=== PATIENT | female | born 1935 | race Caucasian/White ===

== ENCOUNTER 2017-09-04 20:05 | Inpatient (IN) | payer MEDICARE, OTHER ==
[2017-09-04] MEDS ORDERED: Nitrostat 0.4 MG (ED) SL ONE ×4 (20:19→21:43)
[2017-09-04 20:28] LABS: BASOPHIL % 0.1 % (0.0-0.4); Basophil (Absolute #) 0.02 (0-0.4); Eosinophil % 1.5 % (0.00-5.0); Eosinophil (Absolute #) 0.22 (0-0.5); Granulocyte Absolute (ANC) 8.34 (1.4-6.9); Granulocytes % 58.2 % (36.0-66.0); Hematocrit 32.7 % (35-47); Lymphocyte (Absolute #) 4.81 (1.0-4.6); Lymphocytes % 33.6 % (24.0-44.0); Mean Cell Volume 87.9 fl (78-100); Mean Corpuscular Hgb Concent. 30.6 g/dl (32-36); Monocyte (Absolute #) 0.94 (0.0-1.3); Monocytes % 6.6 % (0.0-12.0); Platelet Count 362 K/mm3 (150-450); Red Blood Count 3.72 M/mm3 (4.1-5.4); Red Cell Distribution Width 15.7 % (11.5-14.0); White Blood Count 14.3 K/mm3 (4.0-10.5)
[2017-09-04] MEDS ORDERED: BABY ASPIRIN 81 MG CHEW PO ONE (20:33)
[2017-09-04] MEDS ORDERED: Zofran 4 MG/2 ML VIAL IV ONE (20:33)
[2017-09-04] MEDS ORDERED: MORPHINE SULFATE 4 MG INJ IV ONE (20:34)
[2017-09-04 20:36] LABS: Mean Corpuscular Hemoglobin 26.8 pg (26-32)
[2017-09-04] MEDS ORDERED: BABY ASPIRIN 81 MG CHEW ONE (20:37)
[2017-09-04] MEDS ORDERED: Zofran 4 MG/2 ML VIAL ONE (20:37)
--- NOTE | 2017-09-04 20:44 | ERPHSYRPT ---
- History of Present Illness Time Seen by Provider: 09/04/17 20:20 Historian: patient Exam Limitations: clinical condition Patient Subjective Stated Complaint: Chest pain, radiation to back and nausea. Triage Nursing Assessment: Pt presents to the ED with complaints of chest pain, radiation to back that began at 1915 when she was talking to her daughter. PT states there is nothing that makes pain better or worse. Pt denies SOB, skin PWD , no distress noted. Pt states she took a nitroglycerin 0.4mg SL with some relief. Physician History: PATIENT WITH A HISTORY OF CORONARY ARTERY DISEASE, STENTS X 2, HYPERTENSION, RENAL ARTERY X 2 STENTS, COMPLAINS OF LEFT POSTERIOR AND LEFT FLANK PAIN X 3-4 HOURS, HAS MINIMAL IMPOVEMENT AFTER NITROGLYCERIN X 1. DENIES DYSPNEA, DIAPHORESIS OR PALPITATIONS Timing/Duration: today Activities at Onset: none Quality: sharpness, stabbing Location: central, back (LEFT POSTERIOR CHEST PAIN) Chest Pain Radiation: abdomen Severity of Pain-Max: moderate Severity of Pain-Current: moderate Modifying Factors: Improves With: nothing Associated Symptoms: back pain Prior Chest Pain/Cardiac Workup: cardiac cath (X 2 STENTS) Nitro Today/Relief: 0.4 mg x 1 Aspirin Treatment Today: 81 mg x 2, provided at home Allergies/Adverse Reactions: butalbital [From Fiorinal] Allergy (Verified 10/20/15 17:41) caffeine [From Fiorinal] Allergy (Verified 10/20/15 17:41) Home Medications: Aspirin 162 mg PO DAILY 10/20/15 [History] Esomeprazole Magnesium [Nexium] 40 mg PO DAILY 10/20/15 [History] HydrALAzine HCL 25 MG TAB [Apresoline 25 MG TABLET] 25 mg PO BID 10/20/15 [History] Trandolapril/Verapamil HCl [Tarka ER 4-240 mg Tablet] 240 mg PO DAILY 10/20/15 [ History] Hx Tetanus, Diphtheria Vaccination/Date Given: Yes Hx Influenza Vaccination/Date Given: Yes Hx Pneumococcal Vaccination/Date Given: No Immunizations Up to Date: No - Review of Systems Constitutional: No Fever, No Chills Eyes: No Symptoms Ears, Nose, & Throat: No Symptoms Respiratory: No Symptoms, No Cough, No Dyspnea Cardiac: Chest Pain (LEFT POSTERIOR CHEST PAIN), No Edema, No Syncope Abdominal/Gastrointestinal: Abdominal Pain (LEFT SIDED ABDOMINAL PAIN), No Nausea, No Vomiting, No Diarrhea Genitourinary Symptoms: Flank Pain (LEFT FLANK PAIN), No Dysuria Musculoskeletal: No Back Pain, No Neck Pain Skin: No Rash Neurological: No Dizziness, No Focal Weakness, No Sensory Changes Psychological: No Symptoms Endocrine: No Symptoms All Other Systems: Reviewed and Negative - Past Medical History Pertinent Past Medical History: Yes Neurological History: No Pertinent History ENT History: No Pertinent History Cardiac History: Coronary Artery Disease, Hypertension, Other Respiratory History: No Pertinent History Endocrine Medical History: No Pertinent History Musculoskeletal History: Arthritis GI Medical History: GERD History: Renal Disease Psycho-Social History: No Pertinent History Female Reproductive Disorders: No Pertinent History - Past Surgical History Past Surgical History: Yes Neuro Surgical History: No Pertinent History Cardiac: No Pertinent History Respiratory: No Pertinent History Gastrointestinal: Appendectomy, Cholecystectomy Genitourinary: No Pertinent History Musculoskeletal: Joint Replacement Female Surgical History: Hysterectomy Other Surgical History: left knee replacement, 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 - Social History Smoking Status: Never smoker Exposure to second hand smoke: No Drug Use: none Patient Lives Alone: No - Female History Hx Now: No - Nursing Vital Signs Nursing Vital Signs: Initial Vital Signs Temperature 97.9 F 09/04/17 20:13 Pulse Rate 77 09/04/17 20:13 Respiratory Rate 22 09/04/17 20:13 Blood Pressure 186/111 09/04/17 20:13 O2 Sat by Pulse Oximetry 95 09/04/17 20:13 Pain Scale Pain Intensity 7 - Physical Exam General Appearance: mild distress Eye Exam: PERRL/EOMI, eyes nml inspection Ears, Nose, Throat Exam: normal ENT inspection, moist mucous membranes Neck Exam: normal inspection, non-tender, supple, full range of motion Respiratory Exam: normal breath sounds, lungs clear, No respiratory distress Cardiovascular Exam: regular rate/rhythm, normal heart sounds Gastrointestinal/Abdomen Exam: soft, normal bowel sounds, tenderness (LEFT LATERAL ABDOMINAL PAIN ANTERIOR TO LEFT CVA AREA), No mass Back Exam: normal inspection, CVA tenderness (MODERATE LEFT CVA TENDERNESS), No vertebral tenderness Extremity Exam: normal inspection, normal range of motion Neurologic Exam: alert, oriented x 3, cooperative, normal mood/affect, sensation nml, No motor deficits Skin Exam: normal color, warm, dry SpO2 Interpretation: normal SpO2: 95 Oxygen Delivery: Nasal Cannula - Course EKG Interpreted by Me: RATE, Sinus Rhythm, NORMAL AXIS, Other (LATERAL ST SEGMENT DEPRESSION V1 TO V3) - Radiology Exams Chest X-ray Interpretation: Interpreted by me, No Infiltrates (ELEVATION RIGHT HEMIDIAPHRAM) - CT Exams Abdomen/Pelvis CT Interpretation: Tele-radiologist Report (THERE ARE INFLAMMATORY CHANGES PRESENT AROUND THE SIGMOID COLON, CONSISTENT WITH SIGMOID DIVERTICULITS, NO EVIDENCE OF OBSTRUCTION, PERFORATION OR ABSCESS) Ordered Tests: Active Orders 24 hr Category Date Time Status Refueling Ramp Attendant STAT Care 09/04/17 20:19 Active EKG-ER Only STAT Care 09/04/17 20:19 Active IV Insertion STAT Care 09/04/17 20:19 Active Oxygen-ED Only NASAL CANNULA 2 lpm Care 09/04/17 20:19 Active ABDOMEN AND PELVIS W/0 CONTRAS [CT] Stat Exams 09/04/17 20:30 Completed CHEST 1 VIEW (PORTABLE) Stat Exams 09/04/17 20:19 Completed AMYLASE Stat Lab 09/04/17 20:24 Completed BLOOD CULTURE Stat Lab 09/04/17 23:25 Received CBC W DIFF Stat Lab 09/04/17 20:24 Completed CMP Stat Lab 09/04/17 20:24 Completed D-DIMER QUANTITATION Stat Lab 09/04/17 20:24 Completed LIPASE Stat Lab 09/04/17 20:24 Completed NT PRO BNP Stat Lab 09/04/17 20:24 Completed PROTIME WITH INR Stat Lab 09/04/17 20:24 Completed TROPONIN Q3H Lab 09/04/17 20:24 Completed TROPONIN Q3H Lab 09/04/17 23:25 Received TROPONIN Q3H Lab 09/05/17 02:30 Ordered TROPONIN Q3H Lab 09/05/17 05:30 Ordered TROPONIN Q3H Lab 09/05/17 08:30 Ordered UA W/RFX UR CULTURE Stat Lab 09/04/17 21:30 Completed Transfer Order Routine Transfer 09/04/17 Ordered Medication Summary Generic Name Dose Route Start Last Admin Trade Name Freq PRN Reason Stop Dose Admin Sodium Chloride 500 mls @ 50 mls/hr 09/04/17 22:30 09/04/17 22:29 Sodium Chloride 0.9% 500 Ml IV 10/04/17 22:29 50 mls/hr .Q10H [place] Administration Discontinued Medications Generic Name Dose Route Start Last Admin Trade Name Freq PRN Reason Stop Dose Admin Aspirin 162 mg 09/04/17 20:33 09/04/17 20:42 Baby Aspirin 81 Mg Chew PO 09/04/17 20:34 162 mg STAT ONE Administration Aspirin Confirm 09/04/17 20:37 Baby Aspirin 81 Mg Chew Administered 09/04/17 20:38 Dose 162 mg .ROUTE .STK-MED ONE Hydralazine HCl 10 mg 09/04/17 22:24 09/04/17 22:29 Apresoline 20 Mg/Ml Inj IV 09/04/17 22:25 10 mg STAT ONE Administration Hydralazine HCl Confirm 09/04/17 22:26 Apresoline 20 Mg/Ml Inj Administered 09/04/17 22:27 Dose 20 mg .ROUTE .STK-MED ONE Sodium Chloride Confirm 09/04/17 22:26 Sodium Chloride 0.9% 1000 Ml Administered 09/04/17 22:27 Dose 1,000 mls @ ud .ROUTE .STK-MED ONE Levofloxacin/Dextrose 500 mg in 100 mls @ 100 mls/hr 09/04/17 22:41 09/04/17 23:26 Levofloxacin 500mg/100ml D5w IV 09/04/17 23:40 100 mls/hr STAT STA Administration Levofloxacin/Dextrose Confirm 09/04/17 23:25 Levofloxacin 500mg/100ml D5w Administered 09/04/17 23:26 Dose 500 mg in 100 mls @ ud IV .STK-MED ONE Morphine Sulfate 4 mg 09/04/17 20:34 09/04/17 20:50 Morphine Sulfate 4 Mg Inj IV 09/04/17 20:35 Not Given STAT ONE Nitroglycerin 0.4 mg 09/04/17 20:19 09/04/17 20:27 Nitrostat 0.4 Mg (Ed) SL 09/04/17 20:20 0.4 mg STAT ONE Administration Nitroglycerin 0.4 mg 09/04/17 21:39 09/04/17 21:54 Nitrostat 0.4 Mg (Ed) SL 09/04/17 21:40 0.4 mg STAT ONE Administration Nitroglycerin 1 gm 09/04/17 21:39 09/04/17 21:53 Nitro-Bid 2% Ud Packets TOP 09/04/17 21:40 1 gm STAT ONE Administration Nitroglycerin Confirm 09/04/17 21:42 Nitro-Bid 2% Ud Packets Administered 09/04/17 21:43 Dose 1 gm .ROUTE .STK-MED ONE Nitroglycerin Confirm 09/04/17 21:42 Nitrostat 0.4 Mg (Ed) Administered 09/04/17 21:43 Dose 0.4 mg SL .STK-MED ONE Nitroglycerin Confirm 09/04/17 21:43 Nitrostat 0.4 Mg (Ed) Administered 09/04/17 21:44 Dose 0.4 mg SL .STK-MED ONE Ondansetron HCl 4 mg 09/04/17 20:33 09/04/17 20:41 Zofran 4 Mg/2 Ml Vial IV 09/04/17 20:34 4 mg STAT ONE Administration Ondansetron HCl Confirm 09/04/17 20:37 Zofran 4 Mg/2 Ml Vial Administered 09/04/17 20:38 Dose 4 mg .ROUTE .STK-MED ONE Lab/Rad Data: Laboratory Result Diagrams 09/04/17 20:24 09/04/17 20:24 Laboratory Results 09/04/17 09/04/17 09/04/17 Range/Units 21:30 20:24 20:24 WBC (4.0-10.5) K/mm3 RBC (4.1-5.4) M/mm3 Hgb (12.0-16.0) gm/dl Hct (35-47) % MCV (78-100) fl MCH (26-32) pg MCHC (32-36) g/dl RDW (11.5-14.0) % Plt Count (150-450) K/mm3 MPV (6-9.5) fl Gran % (36.0-66.0) % Lymphocytes % (24.0-44.0) % Monocytes % (0.0-12.0) % Eosinophils % (0.00-5.0) % Basophils % (0.0-0.4) % Basophils # (0-0.4) INR (0.8-3.0) D-Dimer (0-500) ng/mL Sodium (137-145) mmol/L Potassium (3.5-5.1) mmol/L Chloride (98-107) mEq/L Carbon Dioxide (22-30) mmol/L Anion Gap (5-15) MEQ/L BUN (7-17) mg/dl Creatinine (0.52-1.04) mg/dl Estimated GFR ML/MIN Glucose (74-106) mg/dL Calcium (8.4-10.2) mg/dL Total Bilirubin (0.2-1.3) mg/d? AST (14-36) U/L ALT (0-35) U/L Alkaline Phosphatase (38-126) U/L Troponin I 0.013 (0.000-0.034) ng/ml NT-Pro-B Natriuret Pep (0-1800) pg/ml Serum Total Protein (6.3-8.2) mg/dl Albumin (3.5-5.0) g/dl Amylase 54 (30-110) U/L Lipase 170 (23-300) U/L Ur Collection Type CCMS Urine Color LT.YELLOW (YELLOW) Urine Appearance CLEAR (CLEAR) Urine pH 7.0 (5-6) Ur Specific [place] 1.010 (1.005-1.025) Urine Protein TRACE (Negative) Urine Ketones NEGATIVE (NEGATIVE) Urine Blood NEGATIVE (0-5) Salas/ul Urine Nitrite NEGATIVE (NEGATIVE) Urine Bilirubin NEGATIVE (NEGATIVE) Urine Urobilinogen NORMAL (0-1) mg/dL Ur Leukocyte Esterase 1+ (NEGATIVE) Urine Culture Reflexed NO (NO) Urine Glucose NEGATIVE (NEGATIVE) mg/dL Specimen Received 09-04-17 [id number] 09/04/17 09/04/17 09/04/17 Range/Units 20:24 20:24 20:24 WBC 14.3 H (4.0-10.5) K/mm3 RBC 3.72 L (4.1-5.4) M/mm3 Hgb 10.0 L (12.0-16.0) gm/dl Hct 32.7 L (35-47) % MCV 87.9 (78-100) fl MCH 26.8 (26-32) pg MCHC 30.6 L (32-36) g/dl RDW 15.7 H (11.5-14.0) % Plt Count 362 (150-450) K/mm3 MPV 10.0 H (6-9.5) fl Gran % 58.2 (36.0-66.0) % Lymphocytes % 33.6 (24.0-44.0) % Monocytes % 6.6 (0.0-12.0) % Eosinophils % 1.5 (0.00-5.0) % Basophils % 0.1 (0.0-0.4) % Basophils # 0.02 (0-0.4) INR 1.11 (0.8-3.0) D-Dimer 592.85 H* (0-500) ng/mL Sodium 140 (137-145) mmol/L Potassium 3.6 (3.5-5.1) mmol/L Chloride 101 (98-107) mEq/L Carbon Dioxide 26 (22-30) mmol/L Anion Gap 17.0 H (5-15) MEQ/L BUN 23 H (7-17) mg/dl Creatinine 1.43 H (0.52-1.04) mg/dl Estimated GFR 37 ML/MIN Glucose 160 H (74-106) mg/dL Calcium 8.5 (8.4-10.2) mg/dL Total Bilirubin 0.20 (0.2-1.3) mg/d? AST 20 (14-36) U/L ALT 16 (0-35) U/L Alkaline Phosphatase 75 (38-126) U/L Troponin I (0.000-0.034) ng/ml NT-Pro-B Natriuret Pep 1340 (0-1800) pg/ml Serum Total Protein 7.1 (6.3-8.2) mg/dl Albumin 4.0 (3.5-5.0) g/dl Amylase (30-110) U/L Lipase (23-300) U/L Ur Collection Type Urine Color (YELLOW) Urine Appearance (CLEAR) Urine pH (5-6) Ur Specific [place] (1.005-1.025) Urine Protein (Negative) Urine Ketones (NEGATIVE) Urine Blood (0-5) Salas/ul Urine Nitrite (NEGATIVE) Urine Bilirubin (NEGATIVE) Urine Urobilinogen (0-1) mg/dL Ur Leukocyte Esterase (NEGATIVE) Urine Culture Reflexed (NO) Urine Glucose (NEGATIVE) mg/dL Specimen Received - Progress Progress: unchanged Progress Note: 09/04/17 23:19 ADMINISTERED BABY ASA 162MG ORALLY, TOOK 2 ASPIRIN AT HOME, FOLLOWED BY NTG 0.4MG SL X 3 DOSES, APPLICATION 1" NITROPASTE, NO CHANGE IN LEFT FLANK PAIN DISCOMFORT, FAMILY REFUSES INTRAVENOUS ANALGESICS FOR PATIENT, FAMILY REQUEST TORADOL, DISCUSSED WITH FAMILY PATIENT ELEVATED RENAL FUNCTIONS NO INDICATION. AFTER 2 SETS OF BLOOD CULTURES IV LEVAQUIN 500LMG Blood Culture(s) Obtained: Yes Antibiotics given: Yes Discussed with : Urbano (DISCUSSED [facility] [address] KWOK AT 2245 FOR ADMIT) - Departure Time of Disposition: 23:30 Departure Disposition: In-patient Admission Clinical Impression: ACUTE SIGMOID DIVERTICULITIS, ATYPICAL CHEST PAIN Condition: Stable Critical Care Time: No Referrals: MARCI KWOK MD [Primary Care Provider] -
[2017-09-04 20:45] LABS: INR 1.11 (0.8-3.0)
[2017-09-04 20:50] LABS: AMYLASE 54 U/L (30-110); LIPASE 170 U/L (23-300)
[2017-09-04 20:52] LABS: BILIRUBIN,TOTAL 0.2 mg/d? (0.2-1.3); Calcium 8.5 mg/dL (8.4-10.2); Creatinine 1 1.43 mg/dl (0.52-1.04); Potassium 3.6 mmol/L (3.5-5.1); Total Protein 7.1 mg/dl (6.3-8.2)
[2017-09-04 21:04] LABS: D-DIMER QUANTITATION 592.85 ng/mL (0-500)
[2017-09-04] MEDS ORDERED: NITRO-BID 2% UD PACKETS TOP ONE (21:39)
[2017-09-04] MEDS ORDERED: NITRO-BID 2% UD PACKETS ONE (21:42)
[2017-09-04 21:45] LABS: Appearance CLEAR (CLEAR); Bilirubin NEGATIVE (NEGATIVE); Blood NEGATIVE Ery/ul (0-5); Glucose NEGATIVE (NEGATIVE); Ketones NEGATIVE (NEGATIVE); Leukocyte Esterase 1+ (NEGATIVE); Nitrite NEGATIVE (NEGATIVE); Protein,Urine Dip TRACE (Negative); Urobilinogen NORMAL mg/dL (0-1)
[2017-09-04] MEDS ORDERED: APRESOLINE 20 MG/ML INJ IV ONE (22:24)
[2017-09-04] MEDS ORDERED: APRESOLINE 20 MG/ML INJ ONE (22:26)
[2017-09-04] MEDS ORDERED: Sodium Chloride 0.9% 1000 ML 1,000 ML ONE (22:26)
[2017-09-04] MEDS ORDERED: Sodium Chloride 0.9% 500 ML 500 ML IV SCH (22:30)
[2017-09-04] MEDS ORDERED: Levofloxacin 500MG/100ML D5W 500 MG/100 ML BAG IV STA (22:41)
[2017-09-04] MEDS ORDERED: Levofloxacin 500MG/100ML D5W 500 MG/100 ML BAG IV ONE (23:25)
--- NOTE | 2017-09-04 23:38 | XRAY ---
Indication: Left flank and chest pain. Multiple contiguous axial images obtained through the abdomen and pelvis without contrast as ordered. Comparison: None Lung bases are clear. Heart is not enlarged. Large hiatal hernia with partial intrathoracic stomach. Noncontrasted stomach and bowel loops appear nonobstructed. There is mild/moderate colonic fecal debris greatest in the right hemicolon. Scattered colonic diverticulosis greatest in the sigmoid. 4 centimeter left renal exophytic cyst. Previous cholecystectomy and hysterectomy. No free fluid/air. Remaining liver, pancreas, spleen, adrenal glands, kidneys, ureters, and bladder appear unremarkable for noncontrast exam. Mild scattered aortoiliac calcifications without AAA. Bilateral main renal artery stents. Lack of IV contrast precludes evaluation of stent patency. Osseous structures intact with moderate multilevel degenerative spondylosis and moderate levorotoscoliosis centered at the L2 level. Impression: 1. Scattered colonic diverticulosis without diverticulitis. 2. Fecal stasis without obstruction. 3. Left renal cyst. 4. Large hiatal hernia with partial intrathoracic stomach. Comment: Preliminary interpretation was made by [facility]. No discrepancy. CTDI 15.34
--- NOTE | 2017-09-04 23:40 | XRAY ---
Indication: Dyspnea. Comparison: October 22, 2015. Portable chest inflated without focal infiltrate, consolidation, or large effusion. Stable right hemidiaphragm elevation. Heart is not enlarged for AP portable technique. New CT proven large hiatal hernia. Bony thorax intact again with mild osteopenia, degenerative changes, and scoliosis. Impression: Nonacute chest with chronic features.
[2017-09-05] MEDS ORDERED: Nitrostat 0.4 MG Tablet SL PRN (00:06)
[2017-09-05] MEDS ORDERED: MAALOX ES 30 ML UNIT DOSE PO PRN (00:06)
[2017-09-05] MEDS ORDERED: Zofran 4 MG/2 ML VIAL IV PRN (00:06)
[2017-09-05] MEDS ORDERED: Sodium Chloride 0.9% 500 ML 500 ML IV SCH (00:06)
[2017-09-05] MEDS ORDERED: MILK OF MAGNESIA 30 ML PO PRN (00:06)
[2017-09-05] MEDS: FLAGYL 500 MG IVPB 500 MG/100 ML BAG IV SCH ×5 (00:52→23:38)
[2017-09-05] MEDS ORDERED: Apresoline 25 MG TABLET PO ONE (02:24)
[2017-09-05] MEDS ORDERED: Apresoline 25 MG TABLET ONE (02:29)
[2017-09-05 06:15] LABS: Risk Ratio 5.2
[2017-09-05 06:26] LABS: LDL, DIRECT 121.87 mg/dL (30-100)
[2017-09-05] MEDS ORDERED: SUBLIMAZE 100 MCG/2 ML IV PRN (08:19)
--- NOTE | 2017-09-05 08:20 | PCM.HP ---
History of Present Illness - Chief Complaint Chief Complaint: Acute Sigmoid diverticulitis/atypical chest pain History of Present Illness: is a 82 year old female who presented to the ER last night, she states she developed sudden onset of pain in her left flank/lower back region. She was going to take her dog out when it started, there was no pain in the anterior chest, no shortness of breath. She denies fever, no diarrhea or nausea/vomiting. - Review of Systems Constitutional: No Fever, No Chills Respiratory: No Cough, No Short Of Breath Cardiac: No Chest Pain, No Edema, No Syncope Abdominal/Gastrointestinal: No Abdominal Pain, No Nausea, No Vomiting, No Diarrhea, No Constipation Genitourinary Symptoms: Flank Pain, No Dysuria Skin: No Rash All Other Systems: Reviewed and Negative Medications & Allergies Home Medications: Home Medication List Aspirin 162 mg PO DAILY 10/20/15 [History Confirmed 09/04/17] Esomeprazole Magnesium [Nexium] 40 mg PO DAILY 10/20/15 [History Confirmed 09/04] HydrALAzine HCL 25 MG TAB [Apresoline 25 MG TABLET] 25 mg PO BID 10/20/15 [History Confirmed 09/04/17] Trandolapril/Verapamil HCl [Tarka ER 4-240 mg Tablet] 240 mg PO DAILY 10/20/15 [ History Confirmed 09/05/17] Nitroglycerin 0.4 mg Tablet [Nitrostat 0.4 MG Tablet] 0.4 mg SL Q5MIN PRN MR X 3 PRN #0 bottle 10/29/15 [Rx Confirmed 09/04/17] Furosemide 20 mg [Lasix 20 mg] 20 mg PO DAILY 09/05/17 [History Confirmed 09/05/17] Allergies/Adverse Reactions: Allergies Allergy/AdvReac Type Severity Reaction Status Date / Time butalbital [From Fiorinal] Allergy Verified 10/20/15 17:41 caffeine [From Fiorinal] Allergy Verified 10/20/15 17:41 - Past Medical History Past Medical History: Yes Neurological History: No Pertinent History ENT History: No Pertinent History Cardiac History: Coronary Artery Disease, Hypertension, Other Respiratory History: No Pertinent History Endocrine Medical History: No Pertinent History Musculoskelatal History: Arthritis GI Medical History: GERD History: Renal Disease Pyscho-Social History: No Pertinent History Reproductive Disorders: No Pertinent History - Female History Are you now?: No - Past Surgical History Past Surgical History: Yes Neuro Surgical History: No Pertinent History Cardiac History: No Pertinent History Respiratory Surgery: No Pertinent History GI Surgical History: Appendectomy, Cholecystectomy Genitourinary Surgical Hx: No Pertinent History Musculskeletal Surgical Hx: Joint Replacement Female Surgical History: Hysterectomy Other Surgical History: left knee replacement, 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 - Social History Smoking Status: Never smoker Exposure to second hand smoke: No Alcohol: None Drug Use: none - Physical Exam Vital Signs: Vital Signs - 24 hr Temp Pulse Resp BP Pulse Ox 09/05/17 08:00 92 L 09/05/17 07:15 98.4 F 93 H 16 142/64 92 L 09/05/17 06:00 165/82 09/05/17 04:00 92 L 09/05/17 03:28 98.6 F 89 24 185/79 93 L 09/05/17 00:52 98.4 F 85 18 213/91 92 L 09/04/17 23:43 95 09/04/17 23:33 78 14 158/88 95 09/04/17 21:59 97.9 F 80 14 177/98 98 09/04/17 21:12 72 15 190/79 97 09/04/17 20:13 97.9 F 77 22 186/111 95 Oxygen-Last 24 hours O2 Percentage 2 Liters = 28% General Appearance: no apparent distress, alert Eye Exam: PERRL/EOMI, eyes nml inspection Respiratory Exam: normal breath sounds, lungs clear, No respiratory distress Cardiovascular Exam: regular rate/rhythm, normal heart sounds, normal peripheral pulses Gastrointestinal/Abdomen Exam: soft, normal bowel sounds, tenderness (LLQ), No mass Extremity Exam: normal inspection, normal range of motion, pelvis stable Skin Exam: normal color, warm, dry, No rash Results - Labs Lab/Micro Results: Lab Results-Last 24 Hours 09/05/17 09/05/17 09/05/17 Range/Units 02:28 05:15 05:15 Troponin I 0.012 0.017 (0.000-0.034) ng/ml Triglycerides 165 H (30-150) mg/dl Cholesterol 213 H (50-200) mg/dl LDL Cholesterol 121.87 H (30-100) mg/dL HDL Cholesterol 41 (40-60) mg/dl Heart Disease Risk Ratio 5.2 - Other Procedures and Tests Respiratory Therapy 09/05/17 04:09 EKG ROUTINE 09/06/17 05:00 EKG ROUTINE 09/07/17 05:00 EKG ROUTINE 09/08/17 05:00 EKG ROUTINE Assessment/Plan (1) Acute diverticulitis Current Visit: Yes Status: Acute Assessment & Plan: ct shows sigmoid diverticulitis, continue levaquin and flagyl at this time. Code(s): K57.92 - DVTRCLI OF INTEST, PART UNSP, W/O PERF OR ABSCESS W/O BLEED
[2017-09-05] MEDS: TYLENOL 325 MG PO PRN ×4 (08:24→21:13)
[2017-09-05] MEDS: ENOXAPARIN SODIUM SQ SCH (09:49)
[2017-09-05] MEDS: ECOTRIN 81 MG PO SCH (09:49)
[2017-09-05] MEDS: Protonix 40MG Tablet PO SCH (09:49)
[2017-09-05] MEDS: LASIX 20 MG PO SCH (09:50)
[2017-09-05] MEDS ORDERED: ISOPTIN S.R. 240 MG PO SCH ×3 (10:00→22:00)
[2017-09-05] MEDS ORDERED: Apresoline 25 MG TABLET PO SCH ×3 (10:00→22:00)
[2017-09-05] MEDS ORDERED: Ecotrin 325 MG PO SCH (10:00)
[2017-09-05] MEDS ORDERED: Zestril 20 MG PO SCH (10:00)
[2017-09-05] MEDS: ISOPTIN S.R. 240 MG PO SCH (11:26)
[2017-09-05] MEDS: Zestril 20 MG PO SCH (11:26)
[2017-09-05] MEDS ORDERED: NORCO 5/325 MG PO PRN (11:35)
[2017-09-05] MEDS ORDERED: MOTRIN 400 MG PO PRN (11:55)
[2017-09-05] MEDS ORDERED: Zestril 10 MG PO SCH ×2 (12:00→22:00)
[2017-09-05] MEDS: Sodium Chloride 0.9% 1000 ML 1,000 ML IV SCH (13:47)
[2017-09-05] MEDS ORDERED: BENADRYL 25 MG CAPSULE PO PRN (20:45)
[2017-09-05] MEDS ORDERED: Levofloxacin 500MG/100ML D5W 500 MG/100 ML BAG IV SCH (22:00)
[2017-09-05] MEDS ORDERED: Levaquin 250MG/50ML D5W 250 MG/50 ML BAG IV SCH (22:00)
[2017-09-06] MEDS: Sodium Chloride 0.9% 1000 ML 1,000 ML IV SCH (05:42)
[2017-09-06] MEDS: FLAGYL 500 MG IVPB 500 MG/100 ML BAG IV SCH (05:42)
[2017-09-06 06:00] LABS: BASOPHIL % 0.3 % (0.0-0.4); Basophil (Absolute #) 0.02 (0-0.4); Eosinophil % 1.7 % (0.00-5.0); Eosinophil (Absolute #) 0.13 (0-0.5); Granulocyte Absolute (ANC) 4.79 (1.4-6.9); Granulocytes % 63.2 % (36.0-66.0); Hematocrit 29.7 % (35-47); Hemoglobin 8.9 gm/dl (12.0-16.0); Lymphocyte (Absolute #) 2.25 (1.0-4.6); Lymphocytes % 29.7 % (24.0-44.0); Mean Cell Volume 89.5 fl (78-100); Mean Corpuscular Hemoglobin 26.8 pg (26-32); Mean Platelet Volume 10.1 fl (6-9.5); Monocyte (Absolute #) 0.39 (0.0-1.3); Monocytes % 5.1 % (0.0-12.0); Platelet Count 294 K/mm3 (150-450); Red Blood Count 3.32 M/mm3 (4.1-5.4); Red Cell Distribution Width 15.8 % (11.5-14.0); White Blood Count 7.6 K/mm3 (4.0-10.5)
[2017-09-06 06:31] LABS: ANION GAP 11.9 MEQ/L (5-15); BILIRUBIN,TOTAL 0.3 mg/d? (0.2-1.3); Calcium 7.9 mg/dL (8.4-10.2); Creatinine 1 1.06 mg/dl (0.52-1.04); Potassium 3.9 mmol/L (3.5-5.1); Total Protein 5.6 mg/dl (6.3-8.2)
[2017-09-06 07:05] VITALS: BP 134/63; PULSE 79; O2SAT 92
--- NOTE | 2017-09-06 08:21 | PCM.DS ---
Discharge Summary Date of Admission: 09/05/17 00:01 Admitting Physician: MARCI KWOK Primary Care Provider: MARCI KWOK Allergies Allergies butalbital [From Fiorinal] Allergy (Verified 10/20/15 17:41) caffeine [From Fiorinal] Allergy (Verified 10/20/15 17:41) Hospital Summary - Hospital Course Hospital Course: Cassandra was admitted with severe left flank pain, ct scan suggested sigmoid diverticulitis by [facility] read, however in house read was negative. she was treated with levaquin and flagyl, pain has resolved. troponin bumped slightly but no chest pain or shortness of breath was reported and there were no EKG changes, this was attributed to demand issues during acute illness. patient has been advised to f/u with Dr Cowart - Vitals & Intake/Output Vital Signs: Vital Signs Temperature 98.7 F 09/06/17 07:04 Pulse Rate 79 09/06/17 07:04 Respiratory Rate 16 09/06/17 07:04 Blood Pressure 134/63 09/06/17 07:04 O2 Sat by Pulse Oximetry 92 L 09/06/17 07:04 Oxygen-Last Documented O2 Percentage 2 Liters = 28% Intake & Output: Intake & Output 09/03/17 09/04/17 09/05/17 09/06/17 11:59 11:59 11:59 12:59 Intake Total 635 3006 Output Total 725 1525 Balance -90 1481 Weight 70.8 kg 73.5 kg - Lab Result Diagrams: 09/06/17 05:59 09/06/17 05:59 Lab Results-Last 24 Hrs: Lab Results-Last 24 Hours 09/05/17 09/05/17 09/06/17 Range/Units 08:55 11:55 05:59 WBC 7.6 (4.0-10.5) K/mm3 RBC 3.32 L (4.1-5.4) M/mm3 Hgb 8.9 L (12.0-16.0) gm/dl Hct 29.7 L (35-47) % MCV 89.5 (78-100) fl MCH 26.8 (26-32) pg MCHC 30.0 L (32-36) g/dl RDW 15.8 H (11.5-14.0) % Plt Count 294 (150-450) K/mm3 MPV 10.1 H (6-9.5) fl Gran % 63.2 (36.0-66.0) % Lymphocytes % 29.7 (24.0-44.0) % Monocytes % 5.1 (0.0-12.0) % Eosinophils % 1.7 (0.00-5.0) % Basophils % 0.3 (0.0-0.4) % Basophils # 0.02 (0-0.4) Sodium (137-145) mmol/L Potassium (3.5-5.1) mmol/L Chloride (98-107) mEq/L Carbon Dioxide (22-30) mmol/L Anion Gap (5-15) MEQ/L BUN (7-17) mg/dl Creatinine (0.52-1.04) mg/dl Estimated GFR ML/MIN Glucose (74-106) mg/dL Calcium (8.4-10.2) mg/dL Total Bilirubin (0.2-1.3) mg/d? AST (14-36) U/L ALT (0-35) U/L Alkaline Phosphatase (38-126) U/L Troponin I 0.040 H 0.063 H (0.000-0.034) ng/ml Serum Total Protein (6.3-8.2) mg/dl Albumin (3.5-5.0) g/dl 09/06/17 09/06/17 Range/Units 05:59 05:59 WBC (4.0-10.5) K/mm3 RBC (4.1-5.4) M/mm3 Hgb (12.0-16.0) gm/dl Hct (35-47) % MCV (78-100) fl MCH (26-32) pg MCHC (32-36) g/dl RDW (11.5-14.0) % Plt Count (150-450) K/mm3 MPV (6-9.5) fl Gran % (36.0-66.0) % Lymphocytes % (24.0-44.0) % Monocytes % (0.0-12.0) % Eosinophils % (0.00-5.0) % Basophils % (0.0-0.4) % Basophils # (0-0.4) Sodium 141 (137-145) mmol/L Potassium 3.9 (3.5-5.1) mmol/L Chloride 107 (98-107) mEq/L Carbon Dioxide 26 (22-30) mmol/L Anion Gap 11.9 (5-15) MEQ/L BUN 16 (7-17) mg/dl Creatinine 1.06 H (0.52-1.04) mg/dl Estimated GFR 53 ML/MIN Glucose 93 (74-106) mg/dL Calcium 7.9 L (8.4-10.2) mg/dL Total Bilirubin 0.30 (0.2-1.3) mg/d? AST 11 L (14-36) U/L ALT 11 (0-35) U/L Alkaline Phosphatase 57 (38-126) U/L Troponin I 0.103 H (0.000-0.034) ng/ml Serum Total Protein 5.6 L (6.3-8.2) mg/dl Albumin 3.0 L (3.5-5.0) g/dl - Procedures and Test Procedures and Tests throughout Hospitalization: Therapy Orders & Screens 09/05/17 04:09 EKG ROUTINE Comment: Diagnosis: Acute Sigmoid diverticulitis/atypical chest pain 09/06/17 05:00 EKG ROUTINE Comment: Diagnosis: Acute Sigmoid diverticulitis/atypical chest pain 09/07/17 05:00 EKG ROUTINE Comment: Diagnosis: Acute Sigmoid diverticulitis/atypical chest pain 09/08/17 05:00 EKG ROUTINE Comment: Diagnosis: Acute Sigmoid diverticulitis/atypical chest pain Discharge Exam General Appearance: no apparent distress Respiratory Exam: normal breath sounds Cardiovascular Exam: regular rate/rhythm, normal heart sounds Gastrointestinal/Abdomen Exam: soft, No tenderness, No mass Extremity Exam: normal inspection, normal range of motion Back Exam: normal inspection, normal range of motion, No CVA tenderness, No vertebral tenderness Final Diagnosis/Problem List - Final Discharge Diagnosis/Problem (1) Acute diverticulitis Current Visit: Yes Status: Acute Assessment & Plan: home on po levaquin (2) Elevated troponin Current Visit: Yes Status: Acute Assessment & Plan: attributed to demand, will f/u with Dr Cowart. no immediate need for any intervention, patient has no cardiac symptoms. - Discharge Disposition: Home, Self-Care Condition: Stable Prescriptions: New Levofloxacin [Levaquin] 250 mg PO DAILY #5 tablet Continue HydrALAzine HCL 25 MG TAB [Apresoline 25 MG TABLET] 50 mg PO BID Esomeprazole Magnesium [Nexium] 40 mg PO DAILY Aspirin 162 mg PO DAILY Trandolapril/Verapamil HCl [Tarka ER 4-240 mg Tablet] 240 mg PO DAILY Nitroglycerin 0.4 mg Tablet [Nitrostat 0.4 MG Tablet] 0.4 mg SL Q5MIN PRN MR X 3 PRN #0 bottle PRN Reason: Chest Pain Furosemide 20 mg [Lasix 20 mg] 20 mg PO DAILY Follow up with: MARCI KWOK MD [Primary Care Provider] - 1 Week JOSE LUIS COWART [ACTIVE STAFF] - 1 Week
[2017-09-06] MEDS: LASIX 20 MG PO SCH (09:43)
[2017-09-06] MEDS: Protonix 40MG Tablet PO SCH (09:43)
[2017-09-06] MEDS: ECOTRIN 81 MG PO SCH (09:43)
[2017-09-06] MEDS: ISOPTIN S.R. 240 MG PO SCH (09:43)
[2017-09-06] MEDS: ENOXAPARIN SODIUM SQ SCH (09:43)
[2017-09-06] MEDS: Zestril 20 MG PO SCH (09:43)
== END 2017-09-06 10:40 | disposition home or self-care (01) | DRG 392 ==
LOC: ED 20:05 → MED SURG 09-05 00:01
PROVIDERS: ADMIT Family Medicine; ATTEND Family Medicine
DX: K57.32 Diverticulitis of large intestine without perforation or abscess without bleeding (principal); R79.89 Other specified abnormal findings of blood chemistry; I25.10 Atherosclerotic heart disease of native coronary artery without angina pectoris; R07.89 Other chest pain; Z79.899 Other long term (current) drug therapy; I10 Essential (primary) hypertension; M19.90 Unspecified osteoarthritis, unspecified site; K21.9 Gastro-esophageal reflux disease without esophagitis; N28.9 Disorder of kidney and ureter, unspecified
CPT/HCPCS: 36000; 36415; 71045; 74176; 80053; 80061; 81002; 82150; 83690; 83721; 83880; 84484; 85025; 85379; 85610; 87040; 87086; 93005; 93041; 96360; 96361; 96365; 96374; 99285; J0360; J1650; J1956; J2405; A9270-GY

== ENCOUNTER 2018-01-26 15:03 | Emergency (ER) | payer MEDICARE, OTHER ==
--- NOTE | 2018-01-26 15:54 | ERPHSYRPT ---
- History of Present Illness Time Seen by Provider: 01/26/18 15:40 Source: patient Exam Limitations: no limitations Patient Subjective Stated Complaint: patient states nause/vomiting starting today. was not feeling well yesterday. slight pain in right arm/hand with no known injury. headache today on the right side. was able to eat earlier. Triage Nursing Assessment: alert and awake. nebulous system complaints. difficult to nail down specific concern. states right side headache, right arm pain. denies CP. vomiting yesterday and today. neuro intact.. able to get undressed per self and get into bed per self. lungs clear bilat. denies abdominal pain. Physician History: 83-year-old white female arrives with complaint of general malaise, feeling as if she has heartburn, feeling of pain behind her right shoulder, headache, symptoms since last night According to the patient last evening she she ate her supper and she began to feel of discomfort in her belly she started feeling like she had heartburn last until 2 in the morning she went to sleep woke up this morning felt fine that around 10:30 she began to feel like she was seeing spots felt like she was going to pass out began to have pain in her right posterior shoulder she stated she had some nausea no abdominal pain she is not short of breath she is not coughing. She now complains just of feeling general malaise. She has not had a fever. 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 Social history patient denies tobacco alcohol or illicit drug use Timing/Duration: yesterday (began last evening) Severity: moderate Modifying Factors: Improves With: nothing Associated Symptoms: nausea, heartburn, headaches, malaise, weakness, No vomiting, No abdominal pain, No shortness of breath, No diaphoresis, No cough, No chills, No chest pain, No fever, No loss of appetite, No syncope, No seizure Allergies/Adverse Reactions: butalbital [From Fiorinal] Allergy (Verified 10/20/15 17:41) caffeine [From Fiorinal] Allergy (Verified 10/20/15 17:41) Home Medications: Aspirin 162 mg PO DAILY 10/20/15 [History] Esomeprazole Magnesium [Nexium] 40 mg PO DAILY 10/20/15 [History] HydrALAzine HCL 25 MG TAB [Apresoline 25 MG TABLET] 50 mg PO BID 10/20/15 [History] Trandolapril/Verapamil HCl [Tarka ER 4-240 mg Tablet] 240 mg PO DAILY 10/20/15 [ History] Furosemide 20 mg [Lasix 20 mg] 20 mg PO DAILY 09/05/17 [History] Hx Tetanus, Diphtheria Vaccination/Date Given: Yes Hx Influenza Vaccination/Date Given: Yes Hx Pneumococcal Vaccination/Date Given: No - Review of Systems Constitutional: Malaise, Weakness Eyes: Other (patient states she felt like she was going to pass out and felt like she was seeing spots earlier) Ears, Nose, & Throat: No Symptoms Respiratory: No Cough, No Dyspnea Cardiac: No Chest Pain, No Edema, No Syncope Abdominal/Gastrointestinal: No Symptoms Genitourinary Symptoms: No Dysuria Musculoskeletal: Other (pain right posterior shoulder), No Back Pain, No Neck Pain Skin: No Rash Neurological: No Dizziness, No Focal Weakness, No Sensory Changes Psychological: No Symptoms Endocrine: No Symptoms All Other Systems: Reviewed and Negative - Past Medical History Pertinent Past Medical History: Yes Neurological History: No Pertinent History ENT History: No Pertinent History Cardiac History: Coronary Artery Disease, Hypertension, Other Respiratory History: No Pertinent History Endocrine Medical History: No Pertinent History Musculoskeletal History: Arthritis GI Medical History: GERD History: Renal Disease Psycho-Social History: No Pertinent History Female Reproductive Disorders: No Pertinent History - Past Surgical History Past Surgical History: Yes Neuro Surgical History: No Pertinent History Cardiac: No Pertinent History Respiratory: No Pertinent History Gastrointestinal: Appendectomy, Cholecystectomy Genitourinary: No Pertinent History Musculoskeletal: Joint Replacement Female Surgical History: Hysterectomy Other Surgical History: left knee replacement, 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 - Social History Smoking Status: Never smoker Exposure to second hand smoke: No Drug Use: none Patient Lives Alone: No - Female History Hx Now: No - Nursing Vital Signs Nursing Vital Signs: Initial Vital Signs Temperature 97.3 F 01/26/18 15:19 Pulse Rate 55 L 01/26/18 15:19 Respiratory Rate 18 01/26/18 15:19 Blood Pressure 137/60 01/26/18 15:19 O2 Sat by Pulse Oximetry 97 01/26/18 15:19 Pain Scale Pain Intensity 4 - Physical Exam General Appearance: no apparent distress, alert Eye Exam: PERRL/EOMI, eyes nml inspection Ears, Nose, Throat Exam: normal ENT inspection, TMs normal, pharynx normal, moist mucous membranes Neck Exam: normal inspection, non-tender, supple, full range of motion Respiratory Exam: normal breath sounds Cardiovascular Exam: regular rate/rhythm, normal heart sounds, normal peripheral pulses Gastrointestinal/Abdomen Exam: soft, normal bowel sounds, No tenderness, No mass Back Exam: normal inspection, normal range of motion, No CVA tenderness, No vertebral tenderness Extremity Exam: normal inspection, normal range of motion, pelvis stable Neurologic Exam: alert, oriented x 3, cooperative, concrete tester II-XII nml as tested, normal mood/affect, nml cerebellar function, nml station & gait, sensation nml, No motor deficits Skin Exam: normal color, warm, dry, No rash SpO2 Interpretation: normal (97%) SpO2: 97 Oxygen Delivery: Room Air - Course Nursing assessment & vital signs reviewed: Yes EKG Interpreted by Me: RATE (54 bpm), Sinus Leonel, NORMAL AXIS, Other (EKG: Sinus bradycardia, 54 bpm, normal axis, no acute ST OR T WAVE changes) - Radiology Exams Chest X-ray Interpretation: Interpreted by me (no acute disease process noted) Ordered Tests: Active Orders 24 hr Category Date Time Status EKG-ER Only STAT Care 01/26/18 15:47 Active IV Insertion STAT Care 01/26/18 15:47 Active CHEST 1 VIEW (PORTABLE) Stat Exams 01/26/18 16:03 Completed Medication Summary Discontinued Medications Generic Name Dose Route Start Last Admin Trade Name Pardeep PRN Reason Stop Dose Admin Acetaminophen 650 mg 01/26/18 18:14 01/26/18 18:22 Tylenol 325 Mg PO 01/26/18 18:15 650 mg STAT ONE Administration Acetaminophen Confirm 01/26/18 18:22 Tylenol 325 Mg Administered 01/26/18 18:23 Dose 650 mg .ROUTE .STK-MED ONE Aspirin 162 mg 01/26/18 17:27 01/26/18 17:32 Baby Aspirin 81 Mg Chew PO 01/26/18 17:28 162 mg STAT ONE Administration Aspirin Confirm 01/26/18 20:29 Baby Aspirin 81 Mg Chew Administered 01/26/18 20:30 Dose 162 mg .ROUTE .STK-MED ONE Sodium Chloride 1,000 mls @ 100 mls/hr 01/26/18 16:00 01/26/18 16:01 Sodium Chloride 0.9% 1000 Ml IV 02/25/18 15:59 100 mls/hr .Q10H [place] Administration Sodium Chloride Confirm 01/26/18 15:59 Sodium Chloride 0.9% 1000 Ml Administered 01/26/18 16:00 Dose 1,000 mls @ ud .ROUTE .STK-MED ONE Lab/Rad Data: Laboratory Result Diagrams 01/26/18 03:55 01/26/18 03:55 Laboratory Results 01/26/18 01/26/18 01/26/18 Range/Units 03:55 03:55 03:55 WBC 11.8 H (4.0-10.5) K/mm3 RBC 3.38 L (4.1-5.4) M/mm3 Hgb 7.9 L (12.0-16.0) gm/dl Hct 26.8 L (35-47) % MCV 79.3 (78-100) fl MCH 23.3 L (26-32) pg MCHC 29.5 L (32-36) g/dl RDW 15.7 H (11.5-14.0) % Plt Count 435 (150-450) K/mm3 MPV 10.2 H (6-9.5) fl Gran % 80.9 H (36.0-66.0) % Eos # (Auto) 0.09 (0-0.5) Absolute Lymphs (auto) 1.53 (1.0-4.6) Absolute Monos (auto) 0.62 (0.0-1.3) Lymphocytes % 12.9 L (24.0-44.0) % Monocytes % 5.2 (0.0-12.0) % Eosinophils % 0.8 (0.00-5.0) % Basophils % 0.2 (0.0-0.4) % Absolute Granulocytes 9.56 H (1.4-6.9) Basophils # 0.02 (0-0.4) Sodium 140 (137-145) mmol/L Potassium 4.3 (3.5-5.1) mmol/L Chloride 104 (98-107) mmol/L Carbon Dioxide 23 (22-30) mmol/L Anion Gap 17.7 H (5-15) MEQ/L BUN 32 H (7-17) mg/dL Creatinine 1.43 H (0.52-1.04) mg/dL Estimated GFR 37.2 ML/MIN Glucose 121 H (74-106) mg/dL Calcium 9.4 (8.4-10.2) mg/dL Total Bilirubin 0.30 (0.2-1.3) mg/dL AST 14 (14-36) U/L ALT 15 (0-35) U/L Alkaline Phosphatase 70 (38-126) U/L Troponin I 0.056 H* (0.000-0.034) ng/mL Serum Total Protein 7.2 (6.3-8.2) g/dL Albumin 4.2 (3.5-5.0) g/dL Amylase 43 (30-110) U/L Lipase 91 (23-300) U/L - Progress Progress: improved Progress Note: 01/26/18 17:19 83-year-old white female arrives with complaint of general malaise pain in her right posterior shoulder, pain described as a heartburn radiating from her epigastric region to her throat symptoms since last night. Patient's EKG is remarkable for sinus bradycardia 54 beats for minute normal axis no acute ST or T wave changes are noted Patient states she took 2 baby aspirin at home this morning. Patient's troponin is elevated at 0.054 it is noted that patient did have a elevated troponin at last visit 01/26/18 17:34 patient also has anemia hemoglobin of 7.9 I have discussed the patient's case with Dr. 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 Patient is given an additional 162 mg of aspirin. 01/26/18 17:45 I contacted [facility] call and discuss case with Dr. Adamson he has excepted the patient for transfer to [facility]. - Departure Time of Disposition: 18:55 Departure Disposition: Transfer ([facility]) Clinical Impression: Elevated troponin Chest pain Qualifiers: Chest pain type: unspecified Qualified Code(s): R07.9 - Chest pain, unspecified Anemia Qualifiers: Anemia type: unspecified type Qualified Code(s): D64.9 - Anemia, unspecified Condition: Stable Critical Care Time: No Referrals: MARCI KWOK MD [Primary Care Provider] -
[2018-01-26] MEDS ORDERED: Sodium Chloride 0.9% 1000 ML 1,000 ML ONE (15:59)
[2018-01-26] MEDS ORDERED: Sodium Chloride 0.9% 1000 ML 1,000 ML IV SCH (16:00)
[2018-01-26 16:13] LABS: BASOPHIL % 0.2 % (0.0-0.4); Basophil (Absolute #) 0.02 (0-0.4); Eosinophil % 0.8 % (0.00-5.0); Eosinophil (Absolute #) 0.09 (0-0.5); Granulocyte Absolute (ANC) 9.56 (1.4-6.9); Granulocytes % 80.9 % (36.0-66.0); Hematocrit 26.8 % (35-47); Hemoglobin 7.9 gm/dl (12.0-16.0); Lymphocyte (Absolute #) 1.53 (1.0-4.6); Lymphocytes % 12.9 % (24.0-44.0); Mean Cell Volume 79.3 fl (78-100); Mean Corpuscular Hgb Concent. 29.5 g/dl (32-36); Mean Platelet Volume 10.2 fl (6-9.5); Monocyte (Absolute #) 0.62 (0.0-1.3); Monocytes % 5.2 % (0.0-12.0); Platelet Count 435 K/mm3 (150-450); Red Blood Count 3.38 M/mm3 (4.1-5.4); Red Cell Distribution Width 15.7 % (11.5-14.0); White Blood Count 11.8 K/mm3 (4.0-10.5)
[2018-01-26 16:24] LABS: ALBUMIN 4.2 g/dL (3.5-5.0); ANION GAP 17.7 MEQ/L (5-15); BILIRUBIN,TOTAL 0.3 mg/dL (0.2-1.3); Calcium 9.4 mg/dL (8.4-10.2); Creatinine 1 1.43 mg/dL (0.52-1.04); Potassium 4.3 mmol/L (3.5-5.1); Total Protein 7.2 g/dL (6.3-8.2)
[2018-01-26 16:31] LABS: Mean Corpuscular Hemoglobin 23.3 pg (26-32)
[2018-01-26] MEDS ORDERED: BABY ASPIRIN 81 MG CHEW PO ONE (17:27)
[2018-01-26] MEDS ORDERED: TYLENOL 325 MG PO ONE (18:14)
[2018-01-26] MEDS ORDERED: TYLENOL 325 MG ONE (18:22)
[2018-01-26 18:53] VITALS: BP 143/62; PULSE 74; O2SAT 97
[2018-01-26] MEDS ORDERED: BABY ASPIRIN 81 MG CHEW ONE (20:29)
--- NOTE | 2018-01-26 21:46 | XRAY ---
Indication: Weakness and right shoulder pain. Comparison: September 04, 2017. Portable chest remains clear. Heart is not enlarged. 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 Bony thorax intact again with mild osteopenia and degenerative changes. Impression: Stable nonacute chest with chronic features.
== END 2018-01-26 19:23 | disposition short-term general hospital (02) ==
LOC: ED 15:03
DX: R79.89 Other specified abnormal findings of blood chemistry (principal); R07.9 Chest pain, unspecified; D64.9 Anemia, unspecified; R11.2 Nausea with vomiting, unspecified; I25.10 Atherosclerotic heart disease of native coronary artery without angina pectoris; I10 Essential (primary) hypertension; K21.9 Gastro-esophageal reflux disease without esophagitis; N28.9 Disorder of kidney and ureter, unspecified; M19.90 Unspecified osteoarthritis, unspecified site; Z79.899 Other long term (current) drug therapy
CPT/HCPCS: 36000; 36415; 71045; 80053; 82150; 83690; 84484; 85025; 93005; 96360; 99285; A9270-GY

== ENCOUNTER 2018-02-03 14:25 | Emergency (ER) | payer MEDICARE, OTHER ==
[2018-02-03] MEDS ORDERED: BACIGUENT PACKET TP ONE (14:38)
[2018-02-03] MEDS ORDERED: Adacel Vial IM ONE ×2 (14:38→14:48)
[2018-02-03] MEDS ORDERED: Marcaine 0.5%/Epinephrine 10 ML IJ ONE (14:38)
[2018-02-03] MEDS ORDERED: Marcaine 0.5%/Epinephrine 10 ML ONE (14:49)
[2018-02-03] MEDS ORDERED: BACIGUENT PACKET ONE (14:49)
--- NOTE | 2018-02-03 14:52 | ERPHSYRPT ---
- History of Present Illness Time Seen by Provider: 02/03/18 14:31 Source: patient, family Physician History: patient accidently suffered a gash to her lower right leg on a sharp object while walking through her garage at home a short time ago; no other injuries or complaints Method of Injury: incised Occurred: just prior to arrival, this afternoon Quality: aching Severity of Pain-Max: moderate Severity of Pain-Current: mild Lower Extremities Pain: leg: right (mid lower lateral) Modifying Factors: Improves With: nothing Associated Symptoms: none Allergies/Adverse Reactions: butalbital [From Fiorinal] Allergy (Verified 10/20/15 17:41) caffeine [From Fiorinal] Allergy (Verified 10/20/15 17:41) Home Medications: Aspirin 162 mg PO DAILY 10/20/15 [History] Esomeprazole Magnesium [Nexium] 40 mg PO DAILY 10/20/15 [History] HydrALAzine HCL 25 MG TAB [Apresoline 25 MG TABLET] 50 mg PO BID 10/20/15 [History] Trandolapril/Verapamil HCl [Tarka ER 4-240 mg Tablet] 240 mg PO DAILY 10/20/15 [ History] Furosemide 20 mg [Lasix 20 mg] 20 mg PO DAILY 09/05/17 [History] Hx Tetanus, Diphtheria Vaccination/Date Given: Yes Hx Influenza Vaccination/Date Given: Yes Hx Pneumococcal Vaccination/Date Given: No - Review of Systems Constitutional: No Symptoms Eyes: No Symptoms Ears, Nose, & Throat: No Symptoms Respiratory: No Cough, No Dyspnea, No Wheezing Cardiac: No Chest Pain, No Palpitations, No Syncope Abdominal/Gastrointestinal: No Abdominal Pain, No Nausea, No Vomiting, No Diarrhea Genitourinary Symptoms: No Symptoms Musculoskeletal: Injury (gash laceration to lateral lower right leg) Skin: Other (laceration right lower leg) Neurological: No Symptoms Psychological: No Symptoms Endocrine: No Symptoms Hematologic/Lymphatic: Anemia, Easy Bleeding, Easy Bruising Immunological/Allergic: No Symptoms - Past Medical History Pertinent Past Medical History: Yes Neurological History: No Pertinent History ENT History: No Pertinent History Cardiac History: Coronary Artery Disease, Hypertension, Other Respiratory History: No Pertinent History Endocrine Medical History: No Pertinent History Musculoskeletal History: Arthritis GI Medical History: GERD History: Renal Disease Psycho-Social History: No Pertinent History Female Reproductive Disorders: No Pertinent History - Past Surgical History Past Surgical History: Yes Neuro Surgical History: No Pertinent History Cardiac: No Pertinent History Respiratory: No Pertinent History Gastrointestinal: Appendectomy, Cholecystectomy Genitourinary: No Pertinent History Musculoskeletal: Joint Replacement Female Surgical History: Hysterectomy Other Surgical History: left knee replacement, 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 - Social History Smoking Status: Never smoker Exposure to second hand smoke: No Alcohol Use: None Drug Use: none Patient Lives Alone: No Significant Family History: heart disease, hypertension - Female History Hx Now: No - Nursing Vital Signs Nursing Vital Signs: Initial Vital Signs Temperature 99.0 F 02/03/18 14:25 Pulse Rate 82 02/03/18 14:25 Respiratory Rate 18 02/03/18 14:25 Blood Pressure 177/85 02/03/18 14:25 O2 Sat by Pulse Oximetry 96 02/03/18 14:25 Pain Scale Pain Intensity 7 - Physical Exam General Appearance: mild distress, alert Eyes, Ears, Nose, Throat Exam: normal ENT inspection, TMs normal, pharynx normal , moist mucous membranes Neck Exam: normal inspection, non-tender, supple, full range of motion, No JVD Cardiovascular/Respiratory Exam: chest non-tender, normal breath sounds, regular rate/rhythm, heart sounds normal, no M/R/G, no respiratory distress Gastrointestinal/Abdominal Exam: non-tender, soft, no organomegaly Back Exam: normal inspection, normal range of motion, No CVA tenderness, No rash Hips Exam: bilateral: non-tender, normal inspection, normal range of motion, no evidence of injury Legs Exam: right leg: non-tender, pain, soft tissue tenderness, other (8 cm laceration right lateral lower leg), left leg: normal inspection, no evidence of injury, bilateral leg: normal range of motion Knees Exam: bilateral knee: non-tender, normal inspection, normal range of motion, no evidence of injury Ankle Exam: bilateral ankle: non-tender, normal inspection, normal range of motion, no evidence of injury Foot Exam: bilateral foot: non-tender, normal inspection, normal range of motion , no evidence of injury DTR - Lower Extremities Exam: knee (R): 4+, knee (L): 4+ Neuro/Tendon Exam: normal sensation, normal motor functions, normal tendon functions, responds to pain, no evidence tendon injury Mental Status Exam: alert, oriented x 3, cooperative Skin Exam: normal color, warm, dry, laceration (8cm lateral right lower leg), No rash, No petechiae Procedures - Laceration/Wound Repair Right Lower Lateral Distal Calf Wound Location: Right, lower leg (lateral) Wound Length (cm): 8 Wound's Depth, Shape: into muscle, linear, flap, into subcut Wound Explored: no foreign body noted Irrigated: Yes (saline and betadine) Anesthesia: local, marcaine 0.5 Volume Anesthetic (ccs): 8 Wound Debrided: minimal Wound Repaired With: sutures Suture Size/Type: 4-0, prolene Number of Sutures: 8 (mattress type) Layer Closure?: Yes Deep Layer Suture Size/Type: 3:0, chromic Number Deep Layer Sutures: 4 (buried figure of eight and drains placed x [address]) Sterile Dressing Applied?: Yes Splint Applied?: No Progress: 02/03/18 15:37 patient tolerated well; instructions for care and drain and suture removal given - Course Nursing assessment & vital signs reviewed: Yes Ordered Tests: Active Orders 24 hr Category Date Time Status Re-Check Vital Signs STAT Care 02/03/18 14:38 Active Wound Care STAT Care 02/03/18 14:38 Active Medication Summary Discontinued Medications Generic Name Dose Route Start Last Admin Trade Name Pardeep PRN Reason Stop Dose Admin Bacitracin Zinc 0.9 gm 02/03/18 14:38 02/03/18 14:59 Baciguent Packet TP 02/03/18 14:39 0.9 gm STAT ONE Administration Bacitracin Zinc Confirm 02/03/18 14:49 Baciguent Packet Administered 02/03/18 14:50 Dose 1 gm .ROUTE .STK-MED ONE Bupivacaine HCl/Epinephrine Bitart 5 ml 02/03/18 14:38 02/03/18 14:59 Marcaine 0.5%/Epinephrine 10 Ml IJ 02/03/18 14:39 5 ml STAT ONE Administration Bupivacaine HCl/Epinephrine Bitart Confirm 02/03/18 14:49 Marcaine 0.5%/Epinephrine 10 Ml Administered 02/03/18 14:50 Dose 10 ml .ROUTE .STK-MED ONE Diphtheria/Tetanus/Acell Pertussis 0.5 ml 02/03/18 14:38 02/03/18 14:54 Adacel Vial IM 02/03/18 14:39 0.5 ml .ONCE ONE Administration Diphtheria/Tetanus/Acell Pertussis Confirm 02/03/18 14:48 Adacel Vial Administered 02/03/18 14:49 Dose 0.5 ml IM .STK-MED ONE - Progress Progress: improved (after repair), re-examined Progress Note: 02/03/18 14:53 will numb; explore and repair; family at bedside 02/03/18 15:38 instructions given Counseled pt/family regarding: diagnosis, need for follow-up - Departure Time of Disposition: 15:38 Departure Disposition: Home Clinical Impression: 8 cm flap lac lateral distal right leg Condition: Stable Critical Care Time: No Referrals: MARCI KWOK MD [Primary Care Provider] - Instructions: Wound Care (DC), Laceration Repair With Stitches (DC) Additional Instructions: elevate; rest; tylenol prn; wound check and drain advance 48 hours; SR 10-14 days Follow-up with family doctor as directed. Call for appointment. Return if any problems. If you smoke please stop. Call or follow up with your family doctor for assistance if you need it to stop. Please wear your seatbelt when driving. Have a nice day. Thank you for allowing us to participate in your care today. :o) Dr Tim Rosenberg
[2018-02-03 15:41] VITALS: BP 192/88; PULSE 80; O2SAT 97
== END 2018-02-03 15:51 | disposition home or self-care (01) ==
LOC: ED 14:25
DX: S81.811A Laceration without foreign body, right lower leg, initial encounter (principal); W26.9XXA Contact with unspecified sharp object(s), initial encounter; Y92.008 Other place in unspecified non-institutional (private) residence as the place of occurrence of the external cause; Z79.82 Long term (current) use of aspirin; Z79.899 Other long term (current) drug therapy
CPT/HCPCS: 13121; 13122; 90471; 90715; 96372; 99284; A9270-GY

== ENCOUNTER 2021-01-30 17:43 | Emergency (ER) | payer MEDICARE, OTHER ==
--- NOTE | 2021-01-30 17:46 | ERPHSYRPT ---
- History of Present Illness Time Seen by Provider: 01/30/21 17:45 Source: patient, family Exam Limitations: no limitations Physician History: This is an 86-year-old white female who is on aspirin a day and suffered a laceration to her left forearm. She caught her left arm on the door handle. She attempted using bandages locally but the laceration site was still oozing blood. Occurred: this afternoon Method of Injury: direct blow (With tearing by door handle) Quality: sharpness Severity of Pain-Max: mild Severity of Pain-Current: mild Extremities Pain Location: forearm: left (Laceration site) Modifying Factors: Improves With: movement Associated Symptoms: none Allergies/Adverse Reactions: butalbital [From Fiorinal] Allergy (Verified 10/20/15 17:41) caffeine [From Fiorinal] Allergy (Verified 10/20/15 17:41) narcotics Adverse Reaction (Intermediate, Uncoded 01/30/21 17:58) disoriented Home Medications: Aspirin 162 mg PO DAILY 10/20/15 [History] Esomeprazole Magnesium [Nexium] 40 mg PO DAILY 10/20/15 [History] HydrALAzine HCL 25 MG TAB [Apresoline 25 MG TABLET] 50 mg PO BID 10/20/15 [History] Trandolapril/Verapamil HCl [Tarka ER 4-240 mg Tablet] 240 mg PO DAILY 10/20/15 [History] Furosemide 20 mg [Lasix 20 mg] 20 mg PO DAILY 09/05/17 [History] Hx Tetanus, Diphtheria Vaccination/Date Given: Yes Hx Influenza Vaccination/Date Given: Yes Hx Pneumococcal Vaccination/Date Given: No Travel Risk - International Travel Have you traveled outside of the country in past 3 weeks: No - Coronavirus Screening Are you exhibiting any of the following symptoms?: No Close contact with a COVID-19 positive Pt in past 14-21 Days: No - Review of Systems Constitutional: No Symptoms Eyes: No Symptoms Ears, Nose, & Throat: No Symptoms Respiratory: No Symptoms Cardiac: No Symptoms Abdominal/Gastrointestinal: No Symptoms Genitourinary Symptoms: No Symptoms Musculoskeletal: No Symptoms Skin: Other (Serration left forearm) Neurological: No Symptoms Psychological: No Symptoms Endocrine: No Symptoms Hematologic/Lymphatic: No Symptoms Immunological/Allergic: No Symptoms All Other Systems: Reviewed and Negative - Past Medical History Pertinent Past Medical History: Yes Neurological History: No Pertinent History ENT History: No Pertinent History Cardiac History: Hypertension Respiratory History: No Pertinent History Endocrine Medical History: No Pertinent History Musculoskeletal History: Osteoarthritis GI Medical History: GERD History: Renal Disease Psycho-Social History: No Pertinent History Female Reproductive Disorders: No Pertinent History Other Medical History: SOB at times - Past Surgical History Past Surgical History: Yes Neuro Surgical History: No Pertinent History Cardiac: No Pertinent History Respiratory: No Pertinent History Gastrointestinal: Appendectomy, Cholecystectomy Genitourinary: No Pertinent History Musculoskeletal: Joint Replacement Female Surgical History: Hysterectomy Other Surgical History: left knee replacement, 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 - Social History Smoking Status: Never smoker Exposure to second hand smoke: No Alcohol Use: None Drug Use: none Patient Lives Alone: No Significant Family History: heart disease, hypertension - Nursing Vital Signs Nursing Vital Signs: Initial Vital Signs Temperature 98.2 F 01/30/21 17:53 Pulse Rate 84 01/30/21 17:53 Respiratory Rate 22 01/30/21 17:53 Blood Pressure 220/108 01/30/21 17:53 O2 Sat by Pulse Oximetry 96 01/30/21 17:53 Pain Scale Pain Intensity 7 - Physical Exam General Appearance: no apparent distress, alert, anxiety Eyes, Ears, Nose, Throat Exam: normal ENT inspection, moist mucous membranes Neck Exam: normal inspection, non-tender, supple, full range of motion Cardiovascular/Respiratory Exam: chest non-tender, no respiratory distress Abdominal Exam: non-tender Back Exam: normal inspection, normal range of motion, No CVA tenderness, No vertebral tenderness Shoulder Exam: normal inspection, non-tender, no evidence of injury, normal ROM Elbow/Forearm Exam: soft tissue tenderness (Semicircular laceration dorsal aspect left forearm. No foreign body. There is a clot present which was evacuated.) Wrist Exam: normal inspection, non-tender, no evidence of injury, normal ROM Hand Exam: normal inspection, non-tender, no evidence of injury, normal ROM Neuro/Tendon Exam: normal sensation, normal motor functions, normal tendon functions Mental Status Exam: alert, oriented x 3, cooperative Skin Exam: laceration (See above) SpO2 Interpretation: normal O2 Delivery: Room Air Procedures - Laceration/Wound Repair Left Dorsal Other Time of Procedure: 18:35 Wound Location: Left, lower arm (Forearm) Wound Length (cm): 5 Wound's Depth, Shape: superficial, linear (Curvilinear), flap (Subcutaneous hematoma was present. No foreign body. Hematoma clot evacuated.) Wound Explored: clean Irrigated: Yes Hibiclens Prep: Yes Anesthesia: 1% Lidocaine Volume Anesthetic (ccs): 5 Suture Size/Type: 3-0, prolene Number of Sutures: 3 Progress: 01/30/21 18:52 After the area was cleaned and dried Vaseline gauze was placed overlying the repair site followed by nonstick gauze, 4 x 4 and Kerlix wrap then Coban was used to provide a pressure dressing closure. - Course Nursing assessment & vital signs reviewed: Yes - Progress Progress: improved Counseled pt/family regarding: diagnosis, need for follow-up - Departure Departure Disposition: Home Clinical Impression: Forearm laceration Condition: Stable Critical Care Time: No Referrals: MARCI KWOK MD [Primary Care Provider] - Additional Instructions: May remove dressing on 01/31/2021 at 9 PM. At that time, may wash the area with soap and water then blot dry or use a hairdryer to dry the site. Apply antibiotic ointment of choice then cover with a nonstick gauze and pressure dressing. Stop all your blood thinning medication including aspirin for 2 days. After 2 days, may restart. Suture removal in approximately 10 days.
[2021-01-30 17:58] VITALS: PULSE 84
[2021-01-30 18:58] VITALS: BP 200/108; O2SAT 98
== END 2021-01-30 19:02 | disposition home or self-care (01) ==
LOC: ED 17:43
DX: S51.812A Laceration without foreign body of left forearm, initial encounter (principal)
CPT/HCPCS: 12002; 99283

== ENCOUNTER 2021-05-08 12:46 | Day surgery (SDC) | payer MEDICARE, OTHER ==
[2021-05-08] MEDS ORDERED: Depo-Medrol 40 MG/ML IM ONE (12:47)
[2021-05-08] MEDS ORDERED: Sodium Chloride 0.9% 10 ML FLUSH Syringe IJ ONE (12:47)
[2021-05-08] MEDS ORDERED: DIPRIVAN 200 MG/20 ML IV ONE (14:56)
--- NOTE | 2021-05-08 15:23 | XRAY ---
Indication: Left L3-L5 transforaminal BOB. Intraoperative fluoroscopy provided for 26 seconds. 4 digital spot image submitted for interpretation demonstrates posterior needle tips projecting over the expected left L3 and L4 nerve roots. Small amount of contrast injected for needle tip placement. Correlate with intraoperative findings/report.
[2021-05-08] MEDS ORDERED: Lactated Ringers 1,000 ML IV ONE (15:46)
--- NOTE | 2021-05-08 16:51 | XRAY ---
26 seconds fluoroscopy time in surgery for left L3-L5 transforaminal BOB.
== END 2021-05-08 15:26 | disposition home or self-care (01) ==
LOC: SDC-PAIN 12:46
PROVIDERS: ATTEND Psychiatry & Neurology Pain Medicine
DX: M54.16 Radiculopathy, lumbar region (principal); I10 Essential (primary) hypertension; I25.10 Atherosclerotic heart disease of native coronary artery without angina pectoris; M19.90 Unspecified osteoarthritis, unspecified site; N18.9 Chronic kidney disease, unspecified; Z79.899 Other long term (current) drug therapy
CPT/HCPCS: 64483; 64484; 72100; 77003; J1030; J2704; Q9966

== ENCOUNTER → 2021-06-12 | Day surgery (SDC) | payer MEDICARE, OTHER ==
[~2021-06-12] MED LIST: BUPIVACAINE 0.5% VIAL IJ ONE; Depo-Medrol 40 MG/ML IM ONE; Xylocaine 1% Vial 30 ML PF IJ ONE
--- NOTE | 2021-06-12 12:53 | XRAY ---
Indication: Left SI joint injection. Intraoperative fluoroscopy provided for 25 seconds. 4 digital spot image submitted for interpretation demonstrate posterior needle tip projecting over the inferior left SI joint. Correlate with intraoperative findings/report.
--- NOTE | 2021-06-12 12:58 | XRAY ---
25 seconds fluoroscopy time in surgery for injection of the left SI joint.
== END ==
LOC: SDC-PAIN 09:13
PROVIDERS: ATTEND Psychiatry & Neurology Pain Medicine
DX: M46.1 Sacroiliitis, not elsewhere classified (principal); Z79.899 Other long term (current) drug therapy
CPT/HCPCS: 27096; 72020; 77002; G0260; J1030; J2001

== ENCOUNTER 2021-10-30 10:18 | Inpatient (IN) | payer MEDICARE, OTHER ==
[2021-10-30] MEDS ORDERED: Aplisol ID ONE (12:00)
[2021-10-31] MEDS: TYLENOL EXTRA STRENGTH 500 MG PO PRN ×3 (02:29→21:05)
--- NOTE | 2021-10-31 08:57 | PCM.HP ---
History of Present Illness - Chief Complaint Chief Complaint: DECONDITIONING R/T R HIP ARTHROPLASTY History of Present Illness: is a 86 year old female who tripped and fell at her home and suffered a right hip fracture, had ORIF 10/[address] Johnson, had some hemineglect postop and went to ICU, symptoms resolved and minimal carotid disease, started on plavix. here for rehab. - Review of Systems Constitutional: No Fever, No Chills Respiratory: No Cough, No Short Of Breath Cardiac: No Chest Pain, No Edema, No Syncope Abdominal/Gastrointestinal: No Abdominal Pain, No Nausea, No Vomiting, No Diarrhea Musculoskeletal: Fall, Injury Skin: No Rash All Other Systems: Reviewed and Negative Medications & Allergies Home Medications: Home Medication List Aspirin 81 mg PO DAILY 10/20/15 [History Confirmed 10/31/21] Esomeprazole Magnesium [Nexium] 40 mg PO DAILY 10/20/15 [History Confirmed 10/31/21] HydrALAzine HCL 25 MG TAB [Apresoline 25 MG TABLET] 50 mg PO HS 10/20/15 [History Confirmed 10/31/21] Trandolapril/Verapamil HCl [Tarka ER 4-240 mg Tablet] 240 mg PO DAILY 10/20/15 [History Confirmed 10/31/21] Furosemide 20 mg [Lasix 20 mg] 20 mg PO DAILY 09/05/17 [History Confirmed 10/31/21] Acetaminophen 500 mg [Tylenol Extra Strength 500 mg] 1,000 mg PO Q6H PRN PRN 10/31/21 [History Confirmed 10/31/21] Clopidogrel Bisulfate 75 mg [PLAVIX 75 MG Tablet] 75 mg PO DAILY 10/31/21 [History Confirmed 10/31/21] Enoxaparin Sodium [Lovenox] 30 mg SQ BID 10/31/21 [History Confirmed 10/31/21] HydrALAzine HCL 25 MG TAB [Apresoline 25 MG TABLET] 25 mg PO DAILY 10/31/21 [History Confirmed 10/31/21] Melatonin/Pyridoxine [Melatonin 5 mg Tablet] 5 mg PO HS PRN 10/31/21 [History Confirmed 10/31/21] Ondansetron ODT 4 MG [Zofran Odt 4 mg] 4 mg SL Q8H PRN PRN 10/31/21 [History Confirmed 10/31/21] Sennosides [Senokot] 1 tab PO BID 10/31/21 [History Confirmed 10/31/21] Allergies/Adverse Reactions: Allergies Allergy/AdvReac Type Severity Reaction Status Date / Time butalbital [From Fiorinal] Allergy Verified 10/20/15 17:41 caffeine [From Fiorinal] Allergy Verified 10/20/15 17:41 narcotics AdvReac Intermediate disoriented Uncoded 01/30/21 17:58 - Past Medical History Past Medical History: Yes Neurological History: No Pertinent History ENT History: No Pertinent History Cardiac History: Hypertension, Other Respiratory History: No Pertinent History Endocrine Medical History: No Pertinent History Musculoskelatal History: Osteoarthritis GI Medical History: GERD History: Renal Disease Pyscho-Social History: No Pertinent History Reproductive Disorders: No Pertinent History Comment: TIA - Female History Are you now?: No - Past Surgical History Past Surgical History: Yes Neuro Surgical History: No Pertinent History Cardiac History: No Pertinent History Respiratory Surgery: No Pertinent History GI Surgical History: Appendectomy, Cholecystectomy Genitourinary Surgical Hx: No Pertinent History Musculskeletal Surgical Hx: Joint Replacement, Orthopedic Surgery Female Surgical History: Hysterectomy Other Surgical History: left knee replacement, 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, hip fx repair - Social History Smoking Status: Never smoker Exposure to second hand smoke: No Alcohol: None Drug Use: none Significant Family History: heart disease, hypertension - Physical Exam Vital Signs: Vital Signs - 24 hr Temp Pulse Resp BP Pulse Ox 10/31/21 07:57 98.9 F 86 169/77 10/31/21 00:59 170/72 10/30/21 23:05 97.8 F 98 H 18 197/91 94 L General Appearance: no apparent distress Neurologic Exam: alert, oriented x 3, cooperative Respiratory Exam: normal breath sounds, lungs clear, No respiratory distress Cardiovascular Exam: regular rate/rhythm, normal heart sounds, normal peripheral pulses Gastrointestinal/Abdomen Exam: soft, normal bowel sounds, No tenderness, No mass Skin Exam: normal color, warm, dry, No rash Wound Assessment: Skin/Wound Assessment Wound/Incision Assessment Start: 10/30/21 23:18 Text: Status: Active Freq: Q6H Protocol: Document 10/30/21 23:18 TC (Rec: 10/31/21 00:26 TC [id number]) Wound/Incision Assessment Right Hip Wound Assessment Admission Right Elbow Wound Assessment Admission Wound Type Skin Tear Wound Stage Non Pressure Wound Dressing Status Changed Drainage Amount Moderate Drainage Description Serosanguineous Length (cm) (cm) 8 Width (cm) (cm) 3.5 Topical Solution/Irrigant Saline Irrigant Primary Dressing mepilex Wound Photo Photo Taken Yes Date: 10/30/21 Results - Other Procedures and Tests Respiratory Therapy 10/31/21 00:39 Oxygen Nasal Cannula 4 lpm Assessment/Plan (1) Hip fracture, right Current Visit: Yes Status: Acute Assessment & Plan: surgery 10/27, continue lovenox x 14 days per orders. PT consulted for swingbed rehab, hope is to return to home after swingbed stay Code(s): S72.001A - FRACTURE OF UNSP PART OF NECK OF RIGHT FEMUR, INIT (2) TIA (transient ischemic attack) Current Visit: Yes Status: Acute Code(s): G45.9 - TRANSIENT CEREBRAL ISCHEMIC ATTACK, UNSPECIFIED (3) Essential hypertension Current Visit: Yes Status: Acute Assessment & Plan: continue home meds Code(s): I10 - ESSENTIAL (PRIMARY) HYPERTENSION
[2021-10-31] MEDS ORDERED: NON-FORMULARY ITEM (Melatonin/Pyridoxine [Melatonin 5 Mg Tablet] 1 EACH Tablet) PO PRN (09:53)
[2021-10-31] MEDS ORDERED: ZOFRAN ODT 4 MG PO PRN (09:53)
[2021-10-31] MEDS ORDERED: NON-FORMULARY ITEM (Aspirin [Aspirin] 81 MG Tablet) PO SCH (10:00)
[2021-10-31] MEDS ORDERED: VERAPAMIL HCL PO SCH (10:00)
[2021-10-31] MEDS ORDERED: Mavik 2 MG PO SCH (10:00)
[2021-10-31] MEDS ORDERED: ENOXAPARIN SODIUM SQ SCH (10:00)
[2021-10-31] MEDS ORDERED: TRANDOLAPRIL PO SCH (10:00)
[2021-10-31] MEDS ORDERED: NON-FORMULARY ITEM (Esomeprazole Magnesium [Nexium] 40 MG Capsule.Dr) PO SCH (10:00)
[2021-10-31] MEDS ORDERED: ISOPTIN SR PO SCH (10:00)
[2021-10-31] MEDS ORDERED: [UNRECOGNIZED DRUG - OTHER] PO SCH (10:00)
[2021-10-31] MEDS ORDERED: MELATONIN PO PRN (10:01)
[2021-10-31] MEDS: Protonix 40MG Tablet PO SCH (10:15)
[2021-10-31] MEDS: LASIX 20 MG PO SCH (10:15)
[2021-10-31] MEDS: SENOKOT 8.6 MG PO SCH ×2 (10:15→21:05)
[2021-10-31] MEDS: ECOTRIN 81 MG PO SCH (10:15)
[2021-10-31] MEDS: PLAVIX Tablet PO SCH (10:15)
[2021-10-31] MEDS: Apresoline 25 MG TABLET PO SCH ×2 (13:21→21:05)
[2021-11-01] MEDS: TYLENOL EXTRA STRENGTH 500 MG PO PRN ×2 (08:13→16:21)
[2021-11-01] MEDS: ECOTRIN 81 MG PO SCH (08:13)
[2021-11-01] MEDS: LASIX 20 MG PO SCH (08:14)
[2021-11-01] MEDS: Protonix 40MG Tablet PO SCH (08:14)
[2021-11-01] MEDS: PLAVIX Tablet PO SCH (08:14)
[2021-11-01] MEDS: ENOXAPARIN SODIUM SQ SCH (08:14)
[2021-11-01] MEDS: SENOKOT 8.6 MG PO SCH ×2 (08:15→22:10)
[2021-11-01] MEDS: PATIENT OWN MEDICATION PO SCH (08:17)
[2021-11-01] MEDS ORDERED: ISOPTIN SR PO SCH (10:00)
[2021-11-01] MEDS ORDERED: Mavik 2 MG PO SCH (10:00)
[2021-11-01] MEDS ORDERED: TRANDOLAPRIL PO SCH (10:00)
[2021-11-01] MEDS ORDERED: VERAPAMIL HCL PO SCH (10:00)
[2021-11-01] MEDS ORDERED: [UNRECOGNIZED DRUG - OTHER] PO SCH (10:00)
[2021-11-01] MEDS: Apresoline 25 MG TABLET PO SCH ×2 (12:33→22:10)
[2021-11-02] MEDS: TYLENOL EXTRA STRENGTH 500 MG PO PRN ×2 (00:58→09:35)
--- NOTE | 2021-11-02 08:05 | PCM.NOTE ---
Date and Time: 11/02/21 0804 Subjective Assessment: patient is doing well, her pain is well controlled. she is not sleeping well and insistent that she have melatonin reordered, states she took a tylenol pm every night at home for sleep and would like something Objective Exam General Appearance: no apparent distress Neurologic Exam: alert, oriented x 3 Wound Assessment: Skin/Wound Assessment Wound/Incision Assessment Start: 10/30/21 23:18 Text: Status: Active Freq: Q6H Protocol: Document 11/02/21 02:00 KX (Rec: 11/02/21 02:23 KX [id number]) Wound/Incision Assessment Right Hip Wound Assessment Shift Assessment Wound Type Incision Dressing Status Dry & Intact Primary Dressing aquacel Comment Dressing over right hip repair intact; small amount of drainage noted on dressing; dressing remains in place. -- remains true Right Elbow Wound Assessment Shift Assessment Wound Type Skin Tear Wound Stage Non Pressure Wound Dressing Status Changed Length (cm) (cm) 8 Width (cm) (cm) 3.5 Primary Dressing Non-Adherent Gauze Pads Secondary Dressing tegaderm Comment cleansed with sterile water, covered with non aherent pad and tegaderm~dressing remains in place and is CDI. Wound Photo Photo Taken Yes Date: 10/30/21 Respiratory Exam: normal breath sounds, lungs clear, No respiratory distress Cardiovascular Exam: regular rate/rhythm, normal heart sounds Gastrointestinal/Abdomen Exam: soft, No tenderness, No mass OBJECTIVE DATA Vital Signs: Vital Signs - 24 hr Temp Pulse Resp BP Pulse Ox 11/02/21 04:16 98.2 F 88 18 142/85 92 L 11/02/21 00:48 95 11/01/21 20:00 97.6 F 86 16 169/72 96 11/01/21 14:00 99.6 F 78 18 133/78 95 11/01/21 09:55 90 L Pain Assessment - Last Documented Pain Intensity 4 Pain Scale Used 0-10 Pain Scale Intake and Output: Intake & Output 10/30/21 10/31/21 11/01/21 11/02/21 11:59 11:59 11:59 11:59 Intake Total 580 1700 1190 Output Total 450 1000 Balance 580 1250 190 Weight 68.6 kg 69 kg 67.9 kg Multi-Disciplinary Progress Notes: Multi-Disciplinary Progress Notes 11/01/21 14:54 Occupational Therapy Note by Jessica Thrasher Occupational Therapy Note (BID treatment, 13:05-14:05) Patient engages in bathing task this date. OT provided bathroom set up with frequent verbal cues throughout task for adherence to hip precautions. Recliner positioned outside the bathroom, in which patient ambulated approximately 5 feet requiring min assist for sit<>Stand t/f and CGA during functional mobility. Patient able to manage depends (doff) part way prior to sitting with min assist. Patient utilizes clinical asst to doff the rest of the way. Patient rinses, washes with soap, rinses, and dries. Patient is SBA for upper body bathing, max assit for LB bathing, and max assist for washing/rinsing/drying back. Min assist required for washing hair. Patient requires mod assist to don depends, min assist to don gown, and SBA for brushing (pick) hair. Patient transfers with mod assist for sit<>stand from bench, and min assist to mobilize to commode for further dressing and toileting tasks. Patient transfers with CGA for commode and performs hygiene in standing position and manages depends up towards hips appropriately. Patient then completes functional mobility from bathroom to bed with cGA and 1 standing rest break. Patient requires mod assist for sit<>Supine transfer into bed. Initialized on 11/01/21 14:54 - END OF NOTE 11/01/21 10:40 Occupational Therapy Note by Jessica Thrasher Occupational Therapy Treatment Note (09:40-10:20): Upon OT arrival, patient sitting on BSC with nursing aid present. Patient requires min assist for sit<>stand transfer and min assist x2 transfer for pivot to EOB. OT retrieved ADL items and provided set up. Patient completes 3 sit<>Stand t/fs requiring min assist at EOB and requires rest break prior to mobilizing approximately 2.5 feet to sink where seat was provided. Patient completed ADLs at sink side with set up assist washing face, denture care, and (dependent for brushing hair on the backside of head). Patient completes sit<>stand t/f with min assist with verbal cues for each step with hand placement for safety insight with recliner provided. Patient positioned in chair at end of session with all needs met. Verbal cues utilized throughout to facilitate adherence to hip precautions. Initialized on 11/01/21 10:40 - END OF NOTE 11/01/21 10:37 Case Management Note by Cary Pennington PATIENT TO STAY IN SWINGBED OVER WEEKEND AND CONTINUE THERAPY WITH NURSES TO WORK TOWARDS A SAFE DC BACK TO HOME Initialized on 11/01/21 10:37 - END OF NOTE 11/01/21 10:30 Case Management Note by Cary Pennington DR. NOTIFIED THAT FAMILY WOULD LIKE MELATONIN DCD. WE ALSO DISCUSSED PATENT'S LOVENOX RX FROM [facility]. HE WOULD LIKE THE STOP DATE TO BE 11/10/21. EMAR UPDATED TO REFLECT CHANGES Initialized on 11/01/21 10:30 - END OF NOTE Assessment/Plan (1) Hip fracture, right Current Visit: Yes Status: Acute Assessment & Plan: continue PT, plan is to return to home after discharge if she is able Code(s): S72.001A - FRACTURE OF UNSP PART OF NECK OF RIGHT FEMUR, INIT (2) TIA (transient ischemic attack) Current Visit: Yes Status: Acute Code(s): G45.9 - TRANSIENT CEREBRAL ISCHEMIC ATTACK, UNSPECIFIED (3) Essential hypertension Current Visit: Yes Status: Acute Code(s): I10 - ESSENTIAL (PRIMARY) HYPERTENSION
[2021-11-02] MEDS: ENOXAPARIN SODIUM SQ SCH (09:26)
[2021-11-02] MEDS: PATIENT OWN MEDICATION PO SCH (09:27)
[2021-11-02] MEDS: Protonix 40MG Tablet PO SCH (09:28)
[2021-11-02] MEDS: SENOKOT 8.6 MG PO SCH ×2 (09:28→20:57)
[2021-11-02] MEDS: LASIX 20 MG PO SCH (09:28)
[2021-11-02] MEDS: PLAVIX Tablet PO SCH (09:28)
[2021-11-02] MEDS: ECOTRIN 81 MG PO SCH (09:28)
[2021-11-02] MEDS: Apresoline 25 MG TABLET PO SCH ×2 (12:11→20:57)
[2021-11-02] MEDS: MELATONIN PO PRN (20:56)
[2021-11-03] MEDS: LASIX 20 MG PO SCH (08:11)
[2021-11-03] MEDS: Protonix 40MG Tablet PO SCH (08:12)
[2021-11-03] MEDS: ECOTRIN 81 MG PO SCH (08:12)
[2021-11-03] MEDS: SENOKOT 8.6 MG PO SCH ×2 (08:12→20:31)
[2021-11-03] MEDS: ENOXAPARIN SODIUM SQ SCH (08:12)
[2021-11-03] MEDS: PLAVIX Tablet PO SCH (08:12)
[2021-11-03] MEDS: VITAMIN D2 PO SCH (08:14)
[2021-11-03] MEDS: PATIENT OWN MEDICATION PO SCH (08:14)
[2021-11-03] MEDS: TYLENOL EXTRA STRENGTH 500 MG PO PRN (09:24)
[2021-11-03] MEDS: Apresoline 25 MG TABLET PO SCH ×2 (12:03→20:31)
[2021-11-03] MEDS: MELATONIN PO PRN (20:31)
[2021-11-04] MEDS: TYLENOL EXTRA STRENGTH 500 MG PO PRN (10:24)
[2021-11-04] MEDS: PATIENT OWN MEDICATION PO SCH (10:25)
[2021-11-04] MEDS: LASIX 20 MG PO SCH (10:25)
[2021-11-04] MEDS: Protonix 40MG Tablet PO SCH (10:25)
[2021-11-04] MEDS: PLAVIX Tablet PO SCH (10:25)
[2021-11-04] MEDS: SENOKOT 8.6 MG PO SCH ×2 (10:25→21:15)
[2021-11-04] MEDS: ECOTRIN 81 MG PO SCH (10:25)
[2021-11-04] MEDS: ENOXAPARIN SODIUM SQ SCH (10:29)
[2021-11-04] MEDS: Apresoline 25 MG TABLET PO SCH ×2 (11:42→21:15)
[2021-11-04] MEDS: TYLENOL EXTRA STRENGTH 500 MG PO SCH (21:16)
[2021-11-04] MEDS: BENADRYL 25 MG CAPSULE PO SCH (21:16)
[2021-11-05] MEDS: Protonix 40MG Tablet PO SCH (08:25)
[2021-11-05] MEDS: PATIENT OWN MEDICATION PO SCH (08:25)
[2021-11-05] MEDS: SENOKOT 8.6 MG PO SCH ×2 (08:26→21:15)
[2021-11-05] MEDS: LASIX 20 MG PO SCH (08:26)
[2021-11-05] MEDS: PLAVIX Tablet PO SCH (08:26)
[2021-11-05] MEDS: ENOXAPARIN SODIUM SQ SCH (08:26)
[2021-11-05] MEDS: ECOTRIN 81 MG PO SCH (08:26)
[2021-11-05] MEDS: Apresoline 25 MG TABLET PO SCH ×2 (12:24→21:15)
[2021-11-05] MEDS: BENADRYL 25 MG CAPSULE PO SCH (21:14)
[2021-11-05] MEDS: TYLENOL EXTRA STRENGTH 500 MG PO SCH (21:14)
[2021-11-06] MEDS: ENOXAPARIN SODIUM SQ SCH (08:00)
[2021-11-06] MEDS: PATIENT OWN MEDICATION PO SCH (08:01)
[2021-11-06] MEDS: LASIX 20 MG PO SCH (08:02)
[2021-11-06] MEDS: ECOTRIN 81 MG PO SCH (08:02)
[2021-11-06] MEDS: Protonix 40MG Tablet PO SCH (08:02)
[2021-11-06] MEDS: PLAVIX Tablet PO SCH (08:02)
[2021-11-06] MEDS: SENOKOT 8.6 MG PO SCH ×2 (08:04→21:11)
--- NOTE | 2021-11-06 09:19 | PCM.NOTE ---
Date and Time: 11/06/21916 Subjective Assessment: patient requiring some oxygen, currently on 1L. denies feeling short of breath, had some chest discomfort in the night but was fleeting and has resolved. Objective Exam General Appearance: no apparent distress, alert Neurologic Exam: alert, oriented x 3 Wound Assessment: Skin/Wound Assessment Wound/Incision Assessment Start: 10/30/21 23:18 Text: Status: Active Freq: Q6H Protocol: Document 11/06/21 08:00 AR (Rec: 11/06/21 08:14 AR [id number]) Wound/Incision Assessment Right Hip Wound Assessment Shift Assessment Wound Type Incision Wound Stage Non Pressure Wound Dressing Status Dry & Intact Primary Dressing AQUACEL Right Elbow Wound Assessment Shift Assessment Wound Type Skin Tear Wound Stage Non Pressure Wound Dressing Status Dry & Intact Surrounding Tissue [place] Primary Dressing Non-Adherent Gauze Pads Secondary Dressing TEGADERM Comment dressing cdi Wound Photo Photo Taken Yes Date: 10/30/21 Respiratory Exam: normal breath sounds, lungs clear, No respiratory distress Cardiovascular Exam: regular rate/rhythm, normal heart sounds Gastrointestinal/Abdomen Exam: soft, No tenderness, No mass Extremity Exam: normal inspection, normal range of motion OBJECTIVE DATA Vital Signs: Vital Signs - 24 hr Temp Pulse Resp BP Pulse Ox 11/06/21 07:16 97.2 F 91 H 18 190/79 95 11/05/21 23:47 98.7 F 92 H 22 173/74 97 11/05/21 19:49 93 L 11/05/21 19:00 97.3 F 85 18 159/70 97 11/05/21 17:57 93 L Pain Assessment - Last Documented Pain Intensity 0 Pain Scale Used 0-10 Pain Scale Intake and Output: Intake & Output 11/03/21 11/04/21 11/05/21 11/06/21 11:59 11:59 11:59 11:59 Intake Total 482 890 9458 1240 Output Total 300 401 Balance 840 940 860 839 Weight 67.9 kg 68 kg 66.9 kg Radiology Exams: Radiology Procedures Category Date Time Status CHEST 1 VIEW (PORTABLE) Routine Exams 11/06/21 09:15 Ordered Multi-Disciplinary Progress Notes: Multi-Disciplinary Progress Notes 11/05/21 13:20 OT Outpatient POC Note by Danuta Rachel WAS SEEN THIS DATE WHILE SITTING UP IN BEDSIDE CHAIR. EMPHASIS OF TX WAS ON ADL RETRAINING WITH SPECIFICS OF USING A.D (ROVING CAN TENDER AND SOCK AIDE TO MITRA/DOFF SHOES AND SOCKS). SHE REQ. MIN WITH DOFFING AND MOD ASSIST WITH DONNING SHOES AND SOCKS. WILL CONT TO TX. AND PROGRESS SO SHE CAN PERFORM THIS TASK AT HOME INDEPENDENTLY. Initialized on 11/05/21 13:20 - END OF NOTE Assessment/Plan (1) Chest pain Current Visit: No Status: Acute Qualifiers: Chest pain type: unspecified Qualified Code(s): R07.9 - Chest pain, unspecified Assessment & Plan: check xray, labs with troponin/d-dimer and EKG Code(s): R07.9 - CHEST PAIN, UNSPECIFIED (2) Hip fracture, right Current Visit: Yes Status: Acute Code(s): S72.001A - FRACTURE OF UNSP PART OF NECK OF RIGHT FEMUR, INIT (3) TIA (transient ischemic attack) Current Visit: Yes Status: Acute Code(s): G45.9 - TRANSIENT CEREBRAL ISCHEMIC ATTACK, UNSPECIFIED (4) Essential hypertension Current Visit: Yes Status: Acute Code(s): I10 - ESSENTIAL (PRIMARY) HYPERTENSION
--- NOTE | 2021-11-06 09:53 | XRAY ---
Indication: Hypoxia. Chest pain. Comparison: January 26, 2018. Portable chest remains clear. Heart not enlarged for AP portable technique. Enlarging large hiatal hernia with partial intrathoracic stomach with medial left base compressive atelectasis. Bony thorax intact again with osteopenia and degenerative changes. Impression: Continued nonacute chest with chronic features.
[2021-11-06 09:56] LABS: Hematocrit 26.2 % (35-47); Hemoglobin 7.8 gm/dl (12.0-16.0); Mean Cell Volume 95.6 fl (78-100); Mean Corpuscular Hemoglobin 28.5 pg (26-32); Mean Corpuscular Hgb Concent. 29.8 g/dl (32-36); Mean Platelet Volume 9.8 fl (7.5-11.0); Platelet Count 499 K/mm3 (150-450); Red Blood Count 2.74 M/mm3 (4.1-5.4); Red Cell Distribution Width 15.3 % (11.5-14.0); White Blood Count 12.8 K/mm3 (4.0-10.5)
[2021-11-06 10:07] LABS: ANION GAP 13.4 MEQ/L (5-15); Calcium 7.9 mg/dL (8.4-10.2); Creatinine 1 1.43 mg/dL (0.52-1.04); EST GLOMERULAR FILTRATION RATE 36.9 ML/MIN; Potassium 3.8 mmol/L (3.5-5.1); TROPONIN 0.034 ng/mL (0.000-0.034)
--- NOTE | 2021-11-06 12:18 | XRAY ---
Indication: Syncope. Multiple contiguous axial images obtained through the head without contrast. Comparison: None Age-appropriate global atrophy and moderate periventricular degenerative micro-ischemia bilaterally. No acute intracranial hemorrhage, abnormal extra-axial fluid collection, or mass effect. Fourth ventricle is midline without hydrocephalus. Bony calvarium intact with incidental hyperostosis frontalis interna. Complete opacification of left mastoid air cells and left middle ear presumed inflammatory. Remaining visualized paranasal sinuses are clear. Impression: 1. Nonacute senile brain. 2. Complete opacification left mastoid air cells and left middle ear presumed inflammatory.
[2021-11-06] MEDS: Apresoline 25 MG TABLET PO SCH ×2 (13:37→21:10)
[2021-11-06 13:58] LABS: ANISOCYTOSIS 1+; Eosinophil 5 % (0.00-3.0); Hypochromia 1+; Lymphocytes 12 % (24-44); Microcytosis 1+; Monocyte 3 % (0.0-12.0); Platelet Estimate INCREASED (NORMAL); Polychromasia 1+; Total Cells Counted 100
[2021-11-06] MEDS: BENADRYL 25 MG CAPSULE PO SCH (21:10)
[2021-11-06] MEDS: TYLENOL EXTRA STRENGTH 500 MG PO SCH (21:11)
[2021-11-07] MEDS: TYLENOL EXTRA STRENGTH 500 MG PO PRN ×2 (03:34→13:57)
[2021-11-07] MEDS: PATIENT OWN MEDICATION PO SCH (09:25)
[2021-11-07] MEDS: LASIX 20 MG PO SCH (09:26)
[2021-11-07] MEDS: ENOXAPARIN SODIUM SQ SCH (09:26)
[2021-11-07] MEDS: ECOTRIN 81 MG PO SCH (09:26)
[2021-11-07] MEDS: Protonix 40MG Tablet PO SCH (09:26)
[2021-11-07] MEDS: SENOKOT 8.6 MG PO SCH ×2 (09:28→21:07)
[2021-11-07] MEDS: Apresoline 25 MG TABLET PO SCH ×2 (13:43→21:06)
[2021-11-07] MEDS: BENADRYL 25 MG CAPSULE PO SCH (21:07)
[2021-11-07] MEDS: TYLENOL EXTRA STRENGTH 500 MG PO SCH (21:07)
--- NOTE | 2021-11-08 09:08 | PCM.NOTE ---
Date and Time: 11/08/21906 Subjective Assessment: patient is doing well today, had a good day yesterday, she is hopeful that she can return to assisted living next week. Objective Exam General Appearance: no apparent distress Neurologic Exam: alert, oriented x 3 Wound Assessment: Skin/Wound Assessment Wound/Incision Assessment Start: 10/30/21 23:18 Text: Status: Active Freq: Q6H Protocol: Document 11/08/21 08:00 MARIAELENA (Rec: 11/08/21 08:37 MARIAELENA [id number]) Wound/Incision Assessment Right Hip Wound Assessment Shift Assessment Wound Type Incision Wound Stage Non Pressure Wound Dressing Status Dry & Intact Primary Dressing AQUACEL Right Elbow Wound Assessment Shift Assessment Wound Type Skin Tear Wound Stage Non Pressure Wound Dressing Status Dry & Intact Surrounding Tissue [place] Primary Dressing Non-Adherent Gauze Pads Secondary Dressing TEGADERM Comment dressing cdi Respiratory Exam: normal breath sounds, lungs clear, No respiratory distress Cardiovascular Exam: regular rate/rhythm, normal heart sounds Gastrointestinal/Abdomen Exam: soft, No tenderness, No mass OBJECTIVE DATA Vital Signs: Vital Signs - 24 hr Temp Pulse Resp BP Pulse Ox 11/08/21 08:00 97.8 F 88 18 186/84 98 11/07/21 20:00 98.9 F 80 20 176/77 96 11/07/21 19:09 92 L 11/07/21 12:04 93 L 11/07/21 11:30 95 11/07/21 10:43 95 Pain Assessment - Last Documented Pain Intensity 0 Pain Scale Used 0-10 Pain Scale Intake and Output: Intake & Output 11/05/21 11/06/21 11/07/21 11/08/21 11:59 11:59 11:59 11:59 Intake Total 1160 5438 041 1114 Output Total 300 694 067 6668 Balance 860 839 480 0 Weight 66.9 kg 69.9 kg 70 kg Radiology Exams: Radiology Procedures Category Date Time Status CHEST 1 VIEW (PORTABLE) Routine Exams 11/06/21 09:15 Completed HEAD WITHOUT CONTRAST [CT] Stat Exams 11/06/21 11:36 Completed Multi-Disciplinary Progress Notes: Multi-Disciplinary Progress Notes 11/08/21 08:31 Nutrition Note by Deb Mccloud F/u Note: House regular diet con't with 75-100% po intake. Labs 11/06 = BUN 27, Cr 1.43, glu 172. goal of po intake >=75% met and ongoing. Will con't to monitor and f/u prn. Alexa MSRDCD Initialized on 11/08/21 08:31 - END OF NOTE 11/07/21 17:34 Occupational Therapy Note by Danuta Rachel CASSANDRA FOUND THIS AM WHILE SEATED ON TOILET PERFORMING SPONGE BATHING. SHE ASKED THIS OT FOR ASSISTANCE IN GETTING HER BRA TURNED AROUND. SHE PERFORMED DRESSING WITH MOD ASSIST FOR BLE (MITRA UNDERPANTS AND JEANS) SHE REQUESTED SHE WAS TOO TIRED TO ATTEMPT TO USE REACH AND SOCK AIDE TO DRESS LE THIS DATE. SHE THEN USED ROLLING WALKER TO AMBULATE BACK TO BED. SHE WAS EDUCATED IN COMPENSATORY TECHNIQUE USING SHEET TO GET RLE UP INTO BED WHEN PERFORMING SIT TO SUPINE HOWEVER WAS UNSUCCESSFUL IN INDEPENDENCE WITH THIS AND REQ MAX ASSIST FROM OT TO ASSIST. SHE THEN REQUESTED TO REST IN BED WHILE WAITING FOR HER NEXT PT INTERVENTION. Initialized on 11/07/21 17:34 - END OF NOTE 11/07/21 16:26 OT Plan of Care Note by Laisha Mohr OT Eval OT Eval and Treat MD Order Start: 10/30/21 12:00 Freq: ONCE Status: Active Protocol: Created 10/30/21 10:42 JOSE (Rec: 10/30/21 10:42 JOSE [id number]) Document 10/31/21 17:20 MJ (Rec: 10/31/21 17:26 MJ [id number]) OT Assessment Pertinent Past Medical History Please see medical chart for complete medical history. Equipment at Home Prior to Admission None Comment Patient lived alone in [facility]. Per she and family she was independent with all I/ADLs including light meal prep, bathing, and dressing. Niece, China, present for majority of afternoon treatment this date including grooming/hygiene tasks at bed level as patient very fatigued from long day. Patient seen x2 for evaluation in the morning and treatment session in the early evening. Patient very pleasant. Date 10/31/21 Feeding WFL Grooming WFL Bathing Impaired Comment Requires MOD A to complete LB bathing and mod-max verbal cueing for hip precautions. She will need and benefit from AE/AD training. Patient and family report that being able to take a shower is a high priority goal. Dressing Impaired Comment Requires MAX A to complete LB dressing and mod-max verbal cueing for adherence to hip precautions. She will need and benefit from AE/AD training. Toileting Impaired Comment Per nursing staff, patient has been using bedpan to void since arrival late last night. She would benefit from bedside commode training and transfers. Patient and family report that this is a priority goal for them. Bed Mobility Impaired Toilet Transfers Impaired Functional Transfers Impaired Functional Endurance Cassandra demonstrates impaired functional endurance of 2 minutes as demonstrated by SOB with bed>chair transfer using FWW and need to rest following supine>sit transfer during evaluation this morning . She is on 2.0L oxygen via nasal cannula at this time. Cognition Patient is alert and oriented to person, place, and time. Other Objective Data Oliver Index of ADLs: 40-59/ 100, indicative of partial dependence for ADLs Adaptive Equipment/Durable Medical Bedside Commode, Long-Handled Equipment needed/recommended Shower Badger/Sponge (provided this date), Sock Aid, Long- Handled Shoe Horn (if needed, will continue to monitor need) , Spike Maker Functional Problem List decreased functional strength, decreased functional endurance, decreased I with I/ ADLs, need for AE/AD/DME training and education Pain Limitations Cassandra did not rate pain numerically when asked this date, but winced with bed> chair transfer Therapuetic Interventions Evaluation/Re-Assessment, Therapeutic Exercise, Therapeutic Activity/ADL, Neuromuscular Re-Education, AE /AD/DME training and education , patient/caregiver training and education, Energy conservation Functional Goals of Treatment 1. Cassandra will be independent with established HEP and safety precautions at time of discharge. 2. Cassandra will demonstrate LB bathing with SBA using AE/AD as needed by time of discharge . 3. Cassandra will demonstrate total body dressing with MIN A using AE/AD as needed by time of discharge. 4. Cassandra will demonstrate toileting with SBA using AE/AD as needed by time of discharge. OT Inpatient Plan of Care Date of Evaluation 10/31/21 Treatment Diagnosis Muscle (Generalized) Weakness Precaution/Orders as written Eval & Treat Frequency/Duration 5 days/week excluding wkds and holidays Patient assessed for Rehab Services Yes Was notification received of nursing Yes assessment trigger Chart screen completed Yes Are referral orders warranted for Yes evaluation Is an intervention justified at this Yes time Comment OT to see patient 5days/week excluding weekends and holidays to address I/ADLs OT Notes 11/06/21 15:22 Occupational Therapy Note by Jessica Thrasher Occupational Therapy Note (09:05-10:15) Upon OT arrival, patient sitting up in recliner and reports "feeling much better today". Patient agreeable to complete shower this morning and able to recall hip precautions without verbal cues. X-Ray and pc network technician present while OT retrieved bathroom supplies. Patient's granddaughter, Sachin, present during first half of the session with discussion about a/e and DME recommendations for home, discharge recommendation pending further progress, and current progress about knowledge of hip precautions. Patient on 1 LPM and O2 sats 96% and HR 79 bpm. Patient completes functional transfer from recliner and utilizes FWW with CGA (Dependent for O2 line management). Patient completes transfers to commode with CGA, voiding and BM noted with verbal cues on hygiene in standing position to adhere to hip precautions. Patient then mobilizes to shower with CGA AND FWW. Patient doffs bilateral socks with long handled shoe horn and doffs gown with min assist. Patient washes and rinses requiring verbal cues for use of long handled sponge for LB and requires min assist for sit<>Stand t/f for renetta- hygiene. Patient returns to sitting with CGA. Patient provided with towel around back and one on her lap as she reports fatigue following shower and needed a rest break. Vitals taken and O2 sat at 92% and HR 85 bpm with verbal cues on deep breathing techniques. Patient then became pale in appearance, and only able to look at OT, unable to speak. OT entered [address] where RN was and came into room to assess patient. Patient became unresponsive, right side facial droop, labored breathing, with pulse; therefore a code rapid was called directed by RN. OT brought recliner into room, donned gait belt around towels, performed squat- pivot transfer to recliner where nursing staff took over care. Initialized on 11/06/21 15:22 - END OF NOTE 11/05/21 13:20 OT Outpatient POC Note by Danuta Rachel WAS SEEN THIS DATE WHILE SITTING UP IN BEDSIDE CHAIR. EMPHASIS OF TX WAS ON ADL RETRAINING WITH SPECIFICS OF USING A.D (GOLD PLATER AND SOCK AIDE TO MITRA/DOFF SHOES AND SOCKS). SHE REQ. MIN WITH DOFFING AND MOD ASSIST WITH DONNING SHOES AND SOCKS. WILL CONT TO TX. AND PROGRESS SO SHE CAN PERFORM THIS TASK AT HOME INDEPENDENTLY. Initialized on 11/05/21 13:20 - END OF NOTE 11/04/21 17:15 Occupational Therapy Note by Jessica Thrasher OT treatment (15:20-16:00) Treatment session targeting LE dresing with a/e with forward and backward chaining techniques with repetition to facilitate independence with tasks. Session begins with discussion on hip precautions and use of adaptive equipment. This session only targeted crystalizer tender, long handled shoe horn, and sock-aid to doff/don bilateral socks with progression to mod IND with 2 verbal cues. Patient completes multiple sit<>stand transfers with min assist from recliner and CGA during functional mobility into bathroom. Patient then completes toilet t/f (WITH rts) with CGA. Patient noted with BM and voiding, and follows verbal cues for sequencing appropriately; completed in standing with CGA for stability. patient used crystalizer tender to assist with LB dressing with min assist. Patient with increased fatigue at end of session with vitals taken in recliner. BP 144/67; patient reports mild numbness and tingling in right foot with nursing staff notified and aware. Josette RN, present to address with patient. Patient requires min assist for left LE management into bed and max assist for right LE management to supine position in bed. With positioning provided by OT, patient able to scoot self up in bed appropriately. All needs met at end of session. Initialized on 11/04/21 17:15 - END OF NOTE 11/01/21 14:54 Occupational Therapy Note by Jessica Thrasher Occupational Therapy Note (BID treatment, 13:05-14:05) Patient engages in bathing task this date. OT provided bathroom set up with frequent verbal cues throughout task for adherence to hip precautions. Recliner positioned outside the bathroom, in which patient ambulated approximately 5 feet requiring min assist for sit<>Stand t/f and CGA during functional mobility. Patient able to manage depends (doff) part way prior to sitting with min assist. Patient utilizes crystalizer tender to doff the rest of the way. Patient rinses, washes with soap, rinses, and dries. Patient is SBA for upper body bathing, max assit for LB bathing, and max assist for washing/rinsing/drying back. Min assist required for washing hair. Patient requires mod assist to don depends, min assist to don gown, and SBA for brushing (pick) hair. Patient transfers with mod assist for sit<>stand from bench, and min assist to mobilize to commode for further dressing and toileting tasks. Patient transfers with CGA for commode and performs hygiene in standing position and manages depends up towards hips appropriately. Patient then completes functional mobility from bathroom to bed with cGA and 1 standing rest break. Patient requires mod assist for sit<>Supine transfer into bed. Initialized on 11/01/21 14:54 - END OF NOTE 11/01/21 10:40 Occupational Therapy Note by Jessica Thrasher Occupational Therapy Treatment Note (09:40-10:20): Upon OT arrival, patient sitting on BSC with nursing aid present. Patient requires min assist for sit<>stand transfer and min assist x2 transfer for pivot to EOB. OT retrieved ADL items and provided set up. Patient completes 3 sit<>Stand t/fs requiring min assist at EOB and requires rest break prior to mobilizing approximately 2.5 feet to sink where seat was provided. Patient completed ADLs at sink side with set up assist washing face, denture care, and (dependent for brushing hair on the backside of head). Patient completes sit<>stand t/f with min assist with verbal cues for each step with hand placement for safety insight with recliner provided. Patient positioned in chair at end of session with all needs met. Verbal cues utilized throughout to facilitate adherence to hip precautions. Initialized on 11/01/21 10:40 - END OF NOTE Initialized on 11/07/21 16:26 - END OF NOTE 11/07/21 10:38 Case Management Note by Cary Pennington S/W GRANDDAUGHTER SACHIN- FAMILY WOULD LIKE PATIENT TO GO TO [facility] AT TIME OF DC. SACHIN REPORTS SHE HAS S/W DR. KWOK AND HE FEELS THIS WOULD BE APPROPRIATE FOR PATIENT. FAMILY AWARE THESE SYNCOPAL EPISODES WILL KEEP HAPPENING WITHOUT ANY INTERVENTION. THEY UNDERSTAND THIS COULD EVENTUALLY LEAD TO . FAMILY DOES NOT THINK PATIENT WOULD BE HAPPY AT AN SNF FACILITY. THEY ARE CONCERNED SHE WILL JUST GIVE UP AT THAT POINT. THEY FEEL PATIENT KEEPING HER INDEPENDENCE WILL GIVE HER QUALITY OF LIFE. THEY WOULD LIKE PATIENT TO CONTINUE TO WORK WITH THERAPY FOR HER TO HAVE QUALITY OF LIFE. I DID OFFER HOSPICE- THEY FEEL THIS WILL SCARE PATIENT AND ARE NOT INTERESTED IN THAT AT THIS TIME. FAMILY WORKING ON GETTING ASSISTED LIVING SET UP. WILL ALSO PLAN TO DISCUSS ADDING HHC AT ASSISTED LIVING. PATIENT PLANS TO STAY UNTIL BEGINNING TO MID OF NEXT WEEK WHILE FAMILY MAKE ARRANGEMENTS. PATIENT WILL CONTINUE TO WORK WITH THERAPY. Initialized on 11/07/21 10:38 - END OF NOTE Assessment/Plan (1) Hip fracture, right Current Visit: Yes Status: Acute Assessment & Plan: doing well with therapy, hopeful to discharge to [place] next week Code(s): S72.001A - FRACTURE OF UNSP PART OF NECK OF RIGHT FEMUR, INIT (2) TIA (transient ischemic attack) Current Visit: Yes Status: Acute Code(s): G45.9 - TRANSIENT CEREBRAL ISCHEMIC ATTACK, UNSPECIFIED (3) Essential hypertension Current Visit: Yes Status: Acute Code(s): I10 - ESSENTIAL (PRIMARY) HYPERTENSION
[2021-11-08] MEDS: ENOXAPARIN SODIUM SQ SCH (09:17)
[2021-11-08] MEDS: PATIENT OWN MEDICATION PO SCH (09:18)
[2021-11-08] MEDS: Protonix 40MG Tablet PO SCH (09:18)
[2021-11-08] MEDS: ECOTRIN 81 MG PO SCH (09:18)
[2021-11-08] MEDS: LASIX 20 MG PO SCH (09:18)
[2021-11-08] MEDS: TYLENOL EXTRA STRENGTH 500 MG PO PRN ×2 (09:20→16:11)
[2021-11-08] MEDS: SENOKOT 8.6 MG PO SCH ×2 (10:14→21:32)
[2021-11-08] MEDS: Apresoline 25 MG TABLET PO SCH ×2 (12:43→21:32)
[2021-11-08] MEDS: BENADRYL 25 MG CAPSULE PO SCH (21:32)
[2021-11-08] MEDS: TYLENOL EXTRA STRENGTH 500 MG PO SCH (21:32)
[2021-11-09] MEDS: ECOTRIN 81 MG PO SCH (09:04)
[2021-11-09] MEDS: ENOXAPARIN SODIUM SQ SCH (09:04)
[2021-11-09] MEDS: SENOKOT 8.6 MG PO SCH ×2 (09:04→21:56)
[2021-11-09] MEDS: LASIX 20 MG PO SCH (09:04)
[2021-11-09] MEDS: Protonix 40MG Tablet PO SCH (09:04)
[2021-11-09] MEDS: PATIENT OWN MEDICATION PO SCH (09:05)
[2021-11-09] MEDS: Apresoline 25 MG TABLET PO SCH ×2 (11:34→21:55)
[2021-11-09] MEDS: TYLENOL EXTRA STRENGTH 500 MG PO PRN (13:13)
[2021-11-09] MEDS ORDERED: Mylicon 80MG PO PRN (19:48)
[2021-11-09] MEDS: BENADRYL 25 MG CAPSULE PO SCH (21:56)
[2021-11-09] MEDS: TYLENOL EXTRA STRENGTH 500 MG PO SCH (21:56)
[2021-11-10] MEDS ORDERED: Mylicon 80MG PO PRN (06:55)
[2021-11-10] MEDS: PATIENT OWN MEDICATION PO SCH (07:30)
--- NOTE | 2021-11-10 09:25 | PCM.NOTE ---
Date and Time: 11/10/21919 Subjective Assessment: Pt is c/o change in color to her legs, and they are painful. Doesn't thnk she has increased edema, but staff do. Says walking is going well. Not complaining of any hip pain. Janett po well. - Review of Systems Constitutional: No Fever Musculoskeletal: Other (edema and discomfort LE) Objective Exam General Appearance: no apparent distress, alert Neurologic Exam: oriented x 3, cooperative Skin Exam: warm, dry, other (RLE with erythema inferior/anterior portion. some warmth. 2+ edema. there are evolving bullae (clear fluid) anteriorly. LLE with 1+ edema, no erythema. there are evolving very small areas of clear fluid.) Wound Assessment: Skin/Wound Assessment Wound/Incision Assessment Start: 10/30/21 23:18 Text: Status: Active Freq: Q6H Protocol: Document 11/10/21 07:39 (Rec: 11/10/21 07:43 [id number]) Wound/Incision Assessment Right Hip Wound Assessment Shift Assessment Wound Type Incision Wound Stage Non Pressure Wound Dressing Status Dry & Intact Drainage Odor None/Absent Surrounding Tissue [place] Primary Dressing AQUACEL Right Elbow Wound Assessment Shift Assessment Wound Type Skin Tear Wound Stage Non Pressure Wound Dressing Status Dry & Intact Surrounding Tissue [place] Primary Dressing Non-Adherent Gauze Pads Secondary Dressing TEGADERM Comment dressing cdi OBJECTIVE DATA Vital Signs: Vital Signs - 24 hr Temp Pulse Resp BP Pulse Ox 11/10/21 07:52 98.7 F 87 18 186/84 92 L 11/10/21 01:31 149/66 11/09/21 19:39 97.8 F 79 18 171/103 92 L 11/09/21 11:40 85 169/84 97 Pain Assessment - Last Documented Pain Intensity 0 Pain Scale Used 0-10 Pain Scale Intake and Output: Intake & Output 11/07/21 11/08/21 11/09/21 11/10/21 11:59 11:59 11:59 11:59 Intake Total 680 1180 2100 980 Output Total 200 1000 Balance 073 679 2958 980 Weight 69.9 kg 70 kg 67.4 kg Assessment/Plan (1) Cellulitis Current Visit: Yes Status: Acute Qualifiers: Site of cellulitis: extremity Site of cellulitis of extremity: lower ex tremity Laterality: right Qualified Code(s): L03.115 - Cellulitis of right lower limb Assessment & Plan: possible; will cover with antibiotics. Would have Dr. Clement evaluate her again tomorrow. Code(s): L03.90 - CELLULITIS, UNSPECIFIED (2) Leg edema Current Visit: Yes Status: Acute Assessment & Plan: actually developing some bullae on the R - nurses to wrap with KATERIN bandages today; PT to eval tomorrow. Code(s): R60.0 - LOCALIZED EDEMA (3) Hip fracture, right Current Visit: Yes Status: Acute Qualifiers: Encounter type: sequela Fracture type: closed Qualified Code(s): S72.001S - Fracture of unspecified part of neck of right femur, sequela Assessment & Plan: s/p repair; sounds as though she is doing very well. Code(s): S72.001A - FRACTURE OF UNSP PART OF NECK OF RIGHT FEMUR, INIT
[2021-11-10] MEDS: Vibramycin 100 MG PO SCH ×2 (10:11→21:03)
[2021-11-10] MEDS: ECOTRIN 81 MG PO SCH (10:11)
[2021-11-10] MEDS: TYLENOL EXTRA STRENGTH 500 MG PO PRN (10:11)
[2021-11-10] MEDS: SENOKOT 8.6 MG PO SCH ×2 (10:11→21:03)
[2021-11-10] MEDS: Protonix 40MG Tablet PO SCH (10:12)
[2021-11-10] MEDS: VITAMIN D2 PO SCH (10:12)
[2021-11-10] MEDS: LASIX 20 MG PO SCH (10:12)
[2021-11-10] MEDS: ENOXAPARIN SODIUM SQ SCH (10:12)
[2021-11-10 10:43] LABS: Basophil (Absolute #) 0.03 (0-0.4); Eosinophil % 4.4 % (0.00-5.0); Eosinophil (Absolute #) 0.61 (0-0.5); Hematocrit 26.8 % (35-47); Hemoglobin 8.1 gm/dl (12.0-16.0); Lymphocyte (Absolute #) 1.87 (1.0-4.6); Lymphocytes % 13.5 % (24.0-44.0); Mean Corpuscular Hemoglobin 28.7 pg (26-32); Mean Corpuscular Hgb Concent. 30.2 g/dl (32-36); Mean Platelet Volume 9.6 fl (7.5-11.0); Monocyte (Absolute #) 0.75 (0.0-1.3); Monocytes % 5.4 % (0.0-12.0); Neutrophil % 76.5 % (36.0-66.0); Platelet Count 742 K/mm3 (150-450); Red Blood Count 2.82 M/mm3 (4.1-5.4); Red Cell Distribution Width 16.3 % (11.5-14.0); White Blood Count 13.9 K/mm3 (4.0-10.5)
[2021-11-10 10:49] LABS: ANION GAP 13.2 MEQ/L (5-15); Calcium 8.2 mg/dL (8.4-10.2); Creatinine 1 1.5 mg/dL (0.52-1.04); EST GLOMERULAR FILTRATION RATE 34.9 ML/MIN; Potassium 3.8 mmol/L (3.5-5.1)
[2021-11-10] MEDS: Apresoline 25 MG TABLET PO SCH ×2 (12:36→21:03)
[2021-11-10] MEDS: LASIX 20 MG PO ONE ×2 (16:49→17:04)
[2021-11-10] MEDS ORDERED: LASIX 20 MG PO ONE (16:57)
[2021-11-10] MEDS: TYLENOL EXTRA STRENGTH 500 MG PO SCH (21:04)
[2021-11-10] MEDS: BENADRYL 25 MG CAPSULE PO SCH (21:05)
[2021-11-11 06:07] LABS: ANION GAP 11.7 MEQ/L (5-15); Calcium 7.7 mg/dL (8.4-10.2); Creatinine 1 1.51 mg/dL (0.52-1.04); EST GLOMERULAR FILTRATION RATE 34.6 ML/MIN; Potassium 3.9 mmol/L (3.5-5.1)
[2021-11-11] MEDS: TYLENOL EXTRA STRENGTH 500 MG PO PRN (06:18)
--- NOTE | 2021-11-11 08:15 | PCM.NOTE ---
Date and Time: 11/11/21 0814 Subjective Assessment: swelling is much better today, no chest pain or shortness of breath. patient has made progress during stay but recognizes she is unable to do things for herself without assistance, feels she will need a rehab stay from here Objective Exam General Appearance: no apparent distress Skin Exam: normal color, warm, dry Wound Assessment: Skin/Wound Assessment Wound/Incision Assessment Start: 10/30/21 23:18 Text: Status: Active Freq: Q6H Protocol: Document 11/11/21 00:56 LB (Rec: 11/11/21 00:59 LB [id number]) Wound/Incision Assessment Right Hip Wound Assessment Shift Assessment Wound Type Incision Wound Stage Non Pressure Wound Dressing Status Dry & Intact Drainage Odor None/Absent Surrounding Tissue [place] Primary Dressing AQUACEL Right Elbow Wound Assessment Shift Assessment Wound Type Skin Tear Wound Stage Non Pressure Wound Dressing Status Dry & Intact Surrounding Tissue [place] Primary Dressing Non-Adherent Gauze Pads Secondary Dressing TEGADERM Comment dressing cdi Wound Photo Photo Taken Yes Date: 10/30/21 Comment: in chart Respiratory Exam: normal breath sounds, lungs clear, No respiratory distress Cardiovascular Exam: regular rate/rhythm, normal heart sounds Gastrointestinal/Abdomen Exam: soft, No tenderness, No mass Extremity Exam: other (dressing to right hip clean, dry, intact, old slight shadowing unchanged) OBJECTIVE DATA Vital Signs: Vital Signs - 24 hr Temp Pulse Resp BP Pulse Ox 11/11/21 07:25 98.7 F 89 16 183/75 94 L 11/10/21 23:55 89 172/75 11/10/21 19:40 98.2 F 80 16 171/74 94 L 11/10/21 11:12 73 160/70 Pain Assessment - Last Documented Pain Intensity 6 Pain Scale Used [facility] Intake and Output: Intake & Output 11/08/21 11/09/21 11/10/21 11/11/21 11:59 11:59 11:59 11:59 Intake Total 1180 2100 1160 540 Output Total 1000 Balance 180 2100 1160 540 Weight 70 kg 67.4 kg 69.8 kg 66.8 kg Lab Results: Lab Results-Last 24 Hours 11/10/21 11/10/21 11/10/21 Range/Units 09:45 10:08 10:08 WBC 13.9 H (4.0-10.5) K/mm3 RBC 2.82 L (4.1-5.4) M/mm3 Hgb 8.1 L (12.0-16.0) gm/dl Hct 26.8 L (35-47) % MCV 95.0 (78-100) fl MCH 28.7 (26-32) pg MCHC 30.2 L (32-36) g/dl RDW 16.3 H (11.5-14.0) % Plt Count 742 H (150-450) K/mm3 MPV 9.6 (7.5-11.0) fl Gran % 76.5 H (36.0-66.0) % Eos # (Auto) 0.61 H (0-0.5) Absolute Lymphs (auto) 1.87 (1.0-4.6) Absolute Monos (auto) 0.75 (0.0-1.3) Lymphocytes % 13.5 L (24.0-44.0) % Monocytes % 5.4 (0.0-12.0) % Eosinophils % 4.4 (0.00-5.0) % Basophils % 0.2 (0.0-0.4) % Absolute Granulocytes 10.60 H (1.4-6.9) Basophils # 0.03 (0-0.4) Sodium 139 (137-145) mmol/L Potassium 3.8 (3.5-5.1) mmol/L Chloride 103 (98-107) mmol/L Carbon Dioxide 27 (22-30) mmol/L Anion Gap 13.2 (5-15) MEQ/L BUN 22 H (7-17) mg/dL Creatinine 1.50 H (0.52-1.04) mg/dL Estimated GFR 34.9 ML/MIN Glucose 112 H (74-106) mg/dL Calcium 8.2 L (8.4-10.2) mg/dL NT-Pro-B Natriuret Pep 9410 H (0-1800) pg/mL 11/11/21 Range/Units 04:30 WBC (4.0-10.5) K/mm3 RBC (4.1-5.4) M/mm3 Hgb (12.0-16.0) gm/dl Hct (35-47) % MCV (78-100) fl MCH (26-32) pg MCHC (32-36) g/dl RDW (11.5-14.0) % Plt Count (150-450) K/mm3 MPV (7.5-11.0) fl Gran % (36.0-66.0) % Eos # (Auto) (0-0.5) Absolute Lymphs (auto) (1.0-4.6) Absolute Monos (auto) (0.0-1.3) Lymphocytes % (24.0-44.0) % Monocytes % (0.0-12.0) % Eosinophils % (0.00-5.0) % Basophils % (0.0-0.4) % Absolute Granulocytes (1.4-6.9) Basophils # (0-0.4) Sodium 137 (137-145) mmol/L Potassium 3.9 (3.5-5.1) mmol/L Chloride 104 (98-107) mmol/L Carbon Dioxide 26 (22-30) mmol/L Anion Gap 11.7 (5-15) MEQ/L BUN 26 H (7-17) mg/dL Creatinine 1.51 H (0.52-1.04) mg/dL Estimated GFR 34.6 ML/MIN Glucose 95 (74-106) mg/dL Calcium 7.7 L (8.4-10.2) mg/dL NT-Pro-B Natriuret Pep 8510 H (0-1800) pg/mL Assessment/Plan (1) Hip fracture, right Current Visit: Yes Status: Acute Qualifiers: Encounter type: sequela Fracture type: closed Qualified Code(s): S72.001S - Fracture of unspecified part of neck of right femur, sequela Assessment & Plan: plan for discharge to [facility] when approved and bed is ready. Code(s): S72.001A - FRACTURE OF UNSP PART OF NECK OF RIGHT FEMUR, INIT (2) TIA (transient ischemic attack) Current Visit: Yes Status: Acute Code(s): G45.9 - TRANSIENT CEREBRAL ISCHEMIC ATTACK, UNSPECIFIED (3) Essential hypertension Current Visit: Yes Status: Acute Code(s): I10 - ESSENTIAL (PRIMARY) HYPERTENSION
[2021-11-11] MEDS: LASIX 20 MG PO SCH (09:49)
[2021-11-11] MEDS: SENOKOT 8.6 MG PO SCH ×2 (09:49→17:41)
[2021-11-11] MEDS: Vibramycin 100 MG PO SCH ×2 (09:49→21:49)
[2021-11-11] MEDS: Protonix 40MG Tablet PO SCH (09:49)
[2021-11-11] MEDS: ECOTRIN 81 MG PO SCH (09:49)
[2021-11-11] MEDS: PATIENT OWN MEDICATION PO SCH (09:54)
[2021-11-11] MEDS: Apresoline 25 MG TABLET PO SCH ×2 (11:46→21:49)
[2021-11-11] MEDS ORDERED: Aplisol ID ONE (13:00)
[2021-11-11] MEDS: TYLENOL EXTRA STRENGTH 500 MG PO SCH (21:49)
[2021-11-11] MEDS: BENADRYL 25 MG CAPSULE PO SCH (21:50)
[2021-11-12 08:26] VITALS: BP 187/83; PULSE 90; O2SAT 89
--- NOTE | 2021-11-12 08:54 | PCM.DS ---
Discharge Summary Date of Admission: 10/30/21 22:30 Admitting Physician: MARCI CLEMENT Primary Care Provider: MARCI CLEMENT Allergies Allergies butalbital [From Fiorinal] Allergy (Verified 10/20/15 17:41) caffeine [From Fiorinal] Allergy (Verified 10/20/15 17:41) narcotics Adverse Reaction (Intermediate, Uncoded 01/30/21 17:58) disoriented Hospital Summary - Hospital Course Hospital Course: Pt is 86 yo female pt of Dr. Clement' who came [facility] swing bed s/p hip fracture repair with Dr. Johnson. Post op she had some temporary hemineglect, went to ICU, found carotid dz and was started on plavix. She had some edema while here and elevated BNP, was put on increased doses of po lasix and she is feeling better (legs look fine) today. Janett po well. She will go to [facility] for rehab. - Vitals & Intake/Output Vital Signs: Vital Signs Temperature 98.2 F 11/12/21 08:00 Pulse Rate 90 11/12/21 08:00 Respiratory Rate 16 11/12/21 08:00 Blood Pressure 187/83 11/12/21 08:00 O2 Sat by Pulse Oximetry 89 L 11/12/21 08:00 Intake & Output: Intake & Output 11/09/21 11/10/21 11/11/21 11/12/21 11:59 11:59 11:59 11:59 Intake Total 2100 1160 780 780 Balance 2100 1160 780 780 Weight 67.4 kg 69.8 kg 66.8 kg - Lab Result Diagrams: 11/10/21 10:08 11/11/21 04:30 - Procedures and Test Procedures and Tests throughout Hospitalization: Therapy Orders & Screens 10/30/21 12:00 OT Eval and Treat ( Order) ONCE Comment: Consulting Provider: MARCI CLEMENT Physician Instructions: Reason For Exam: DECONDITIONING R/T R HIP ARTHROPLASTY Evaluate: Yes Treat: Yes Reason for Evaluation: SEE ABOVE Diagnosis: DECONDITIONING R/T R HIP ARTHROPLASTY PT Eval & Treat ( Order) ONCE Reason for Eval:: DECONDITIONING R/T R HIP ARTHROPLASTY Diagnosis: DECONDITIONING R/T R HIP ARTHROPLASTY 10/30/21 23:18 OT Screen per Nursing Assess ONCE Comment: Protocol Order Physician Instructions: Greater than 3 points order OT Admission Screening Reason For Exam: Triggered on Admission Diagnosis: DECONDITIONING R/T R HIP ARTHROPLASTY Open Wound/Cellutlitis/Pressure Ulcers: Yes Acute Fx/ORIF/Change in wt bearing status: Yes Severe MUSCULOSKELETAL pain: Yes ADL Dysfunction: Yes Acute CVA w/Hemiparesis/Hemiplegia: No Decreased Functional Mobility/Strength: Yes Sprain/Strain: No Acute Post-op Mobility Dysfunction: Yes Total Points: 22 PT Screen per Nursing Assess ONCE Comment: Protocol Order Physician Instructions: Greater than 3 points order PT Admission Screenin Reason For Exam: Triggered on Admission Diagnosis: DECONDITIONING R/T R HIP ARTHROPLASTY Open Wound/Cellutlitis/Pressure Ulcers: Yes Acute Fx/ORIF/Change in wt bearing status: Yes Severe MUSCULOSKELETAL pain: Yes ADL Dysfunction: Yes Acute CVA w/Hemiparesis/Hemiplegia: No Decreased Functional Mobility/Strength: Yes Sprain/Strain: No Acute Post-op Mobility Dysfunction: Yes Total Points: 22 10/31/21 00:39 Oxygen Nasal Cannula 4 lpm Comment: Diagnosis: DECONDITIONING R/T R HIP ARTHROPLASTY 10/31/21 12:54 PT Clarification Order ROUTINE Comment: Physician Instructions: Reason For Exam: PT Clarification: P.T. TO RX 5-6X/WK TO ADDRESS FUNCTIONAL MOBILITY AND GAIT TRAINING, THER EX, ENDURANCE AND BALANCE ACTIVITIES. PT. WILL ALSO BE EDUCATED RE: SAFETY AWARENESS, HIP PRECAUTIONS, PN MG'T, AND HEP TO MAXIIZE FUNCTIONLA POTENTIAL FOR SAFE RETURN HOME. 11/05/21 08:44 RT Miscellaneous Order ROUTINE Comment: Physician Instructions: Reason For Exam: wean oxygen Diagnosis: DECONDITIONING R/T R HIP ARTHROPLASTY 11/06/21 09:19 EKG ROUTINE Comment: Diagnosis: DECONDITIONING R/T R HIP ARTHROPLASTY 11/07/21 16:29 OT Clarification Order ROUTINE Comment: Physician Instructions: Reason For Exam: OT Clarification: OT to see patient 5days/week as tolerated including Evaluation/Re-Assessment, Therapeutic Activities/ADLs, Therapeutic Exercise, Neuromsucular Reeducation/Balance, AE/AD/DME training, family/caregiver training, and energy conservation to address functional strength, functional endurance, and independence and safety with I/ADLs using AE/AD/DME as needed in order to promote improved functional performance and facilitate safe discharge. Discharge Exam General Appearance: no apparent distress, alert Neurologic Exam: cooperative, normal mood/affect Eye Exam: eyes nml inspection Ears, Nose, Throat Exam: moist mucous membranes Neck Exam: normal inspection Respiratory Exam: normal breath sounds, lungs clear, No crackles/rales, No rhonchi, No wheezing Cardiovascular Exam: regular rate/rhythm, normal heart sounds, No murmur Gastrointestinal/Abdomen Exam: soft, normal bowel sounds, No tenderness, No distention, No mass, No guarding, No rebound Extremity Exam: other (R hip wound is well approximated, no erythema/exudate. LE without edema bilat. nttp R anterior lower leg with minimal erythema) Wound Assessment: Skin/Wound Assessment Wound/Incision Assessment Start: 10/30/21 23:18 Text: Status: Active Freq: Q6H Protocol: Document 11/12/21 01:00 LB (Rec: 11/12/21 01:04 LB [id number]) Wound/Incision Assessment Right Hip Wound Assessment Shift Assessment Wound Type Incision Wound Stage Non Pressure Wound Drainage Amount None General Appearance Well Approximated,Open to air Surrounding Tissue [place] Right Elbow Wound Assessment Shift Assessment Wound Type Skin Tear Wound Stage Non Pressure Wound Drainage Amount None General Appearance Open to air,Clean/Dry Wound Photo Photo Taken Yes Date: 10/30/21 Comment: in chart Final Diagnosis/Problem List - Final Discharge Diagnosis/Problem (1) Hip fracture, right Current Visit: Yes Status: Acute Assessment & Plan: s/p repair - going to [facility] for continued rehab. Code(s): S72.001A - FRACTURE OF UNSP PART OF NECK OF RIGHT FEMUR, INIT (2) Cellulitis Current Visit: Yes Status: Acute Assessment & Plan: much improved. Will finish 5 more days of doxycycline. Code(s): L03.90 - CELLULITIS, UNSPECIFIED (3) Leg edema Current Visit: Yes Status: Resolved Code(s): R60.0 - LOCALIZED EDEMA - Discharge Disposition: CO TO [facility] Condition: Good Prescriptions: New Lactobacillus Acidophilus [Acidophilus TABLET] 1 tab PO TID #30 tablet Simethicone 80 mg [Mylicon 80MG] 120 mg PO QID PRN PRN #60 tab.chew PRN Reason: Gas Doxycycline Hyclate 100 mg [Vibramycin 100 MG] 100 mg PO BID #10 tab Continue HydrALAzine HCL 25 MG TAB [Apresoline 25 MG TABLET] 50 mg PO HS Esomeprazole Magnesium [Nexium] 40 mg PO DAILY Aspirin 81 mg PO DAILY Furosemide 20 mg [Lasix 20 mg] 20 mg PO DAILY Acetaminophen 500 mg [Tylenol Extra Strength 500 mg] 500 mg PO Q6H HydrALAzine HCL 25 MG TAB [Apresoline 25 MG TABLET] 25 mg PO DAILY Sennosides [Senokot] 1 tab PO BID Clopidogrel Bisulfate [PLAVIX Tablet] 75 mg PO DAILY Melatonin/Pyridoxine [Melatonin 5 mg Tablet] 5 mg PO HS PRN PRN Reason: Insomnia Hydrocodone/Acetaminophen [Hydrocodone-Acetamin 5-325 mg] 1 tab PO Q4HPRN PRN MDD 6 PRN Reason: Pain Ergocalciferol (Vitamin D2) [Vitamin D2] 50,000 unit PO Q7D Atorvastatin Calcium [Lipitor 20MG Tablet] 20 mg PO DAILY Trandolapril/Verapamil HCl [Trandolapr-Verapam ER 2-240 mg] 1 tab PO DAILY Discontinued Enoxaparin Sodium [Lovenox] 30 mg SQ DAILY Additional Instructions: PRISON ORDERS- ADMIT TO RESIDENTIAL CARE REGULAR DIET PT/OT EVAL AND TREAT SEE ATTACHED MED LIST Follow up with: MARCI CLEMENT MD [Primary Care Provider] - JOSE LUIS COWART [ACTIVE STAFF] - 11/13/21 2:30 pm () TIMO CORADO MD [NON-STAFF PHY W/O PRIVILEGES] - 12/02/21 9:00 am
[2021-11-12] MEDS: SENOKOT 8.6 MG PO SCH (09:09)
[2021-11-12] MEDS: PATIENT OWN MEDICATION PO SCH (09:09)
[2021-11-12] MEDS: ECOTRIN 81 MG PO SCH (09:09)
[2021-11-12] MEDS: Protonix 40MG Tablet PO SCH (09:09)
[2021-11-12] MEDS: LASIX 20 MG PO SCH (09:09)
[2021-11-12] MEDS: Vibramycin 100 MG PO SCH (09:10)
[2021-11-12 09:32] LABS: ANION GAP 12.2 MEQ/L (5-15); Creatinine 1 1.78 mg/dL (0.52-1.04); EST GLOMERULAR FILTRATION RATE 28.7 ML/MIN; MAGNESIUM 1.9 mg/dL (1.6-2.3); Potassium 3.7 mmol/L (3.5-5.1)
[2021-11-12] MEDS: Apresoline 25 MG TABLET PO SCH (11:12)
== END 2021-11-12 11:50 | DRG 536 ==
LOC: MED SURG 22:30
PROVIDERS: ADMIT Family Medicine; ATTEND Family Medicine
DX: S72.001A Fracture of unspecified part of neck of right femur, initial encounter for closed fracture (principal); L03.115 Cellulitis of right lower limb; G45.9 Transient cerebral ischemic attack, unspecified; R60.0 Localized edema; R07.9 Chest pain, unspecified; I10 Essential (primary) hypertension; W18.30XD Fall on same level, unspecified, subsequent encounter; Z79.01 Long term (current) use of anticoagulants; Z79.899 Other long term (current) drug therapy; Z20.828 Contact with and (suspected) exposure to other viral communicable diseases
CPT/HCPCS: 36415; 70450; 71045; 80048; 82947; 83735; 83880; 84484; 85025; 85379; 93005; 94760; J1650; 97110-GP; A9270-GY

== ENCOUNTER 2021-12-02 14:00 | Inpatient (IN) | payer MEDICARE, OTHER ==
--- NOTE | 2021-12-02 14:11 | ERPHSYRPT ---
- History of Present Illness Time Seen by Provider: 12/02/21 14:10 Source: patient, EMS Exam Limitations: no limitations Physician History: This is an 86-year-old white female patient of Dr. 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 It occurred approximately noon today after eating lunch. However, by the time EMS arrived her symptoms resolved completely and she arrives to the emergency room feeling better and shows no signs of TIA or stroke. She does feel weak. She denies chest pain. She denies abdominal pain. Patient has a history of hypertension and elevated cholesterol. Patient is on Plavix. Timing/Duration: today Severity: mild Character of Deficits: other (Speech changes and left lower and left upper extremity weakness that have completely resolved prior to arrival to the emergency department) Deficits: no difficulties Baseline/Normal Cognition: alert oriented x 3 Current Cognition: alert oriented x 3 Baseline Gait: walks only w/assistance Associated Symptoms: numbness/tingling in legs/feet, trouble walking Allergies/Adverse Reactions: butalbital [From Fiorinal] Allergy (Verified 12/02/21 14:31) caffeine [From Fiorinal] Allergy (Verified 12/02/21 14:31) narcotics Adverse Reaction (Intermediate, Uncoded 12/02/21 14:31) disoriented Home Medications: Aspirin 81 mg PO DAILY 10/20/15 [History] HydrALAzine HCL 25 MG TAB [Apresoline 25 MG TABLET] 50 mg PO HS 10/20/15 [History] Furosemide 20 mg [Lasix 20 mg] 20 mg PO DAILY 09/05/17 [History] Acetaminophen 500 mg [Tylenol Extra Strength 500 mg] 500 mg PO HS PRN 10/31/21 [History] Atorvastatin Calcium [Lipitor 20MG Tablet] 20 mg PO DAILY 10/31/21 [History] Clopidogrel Bisulfate [PLAVIX Tablet] 75 mg PO DAILY 10/31/21 [History] Ergocalciferol (Vitamin D2) [Vitamin D2] 50,000 unit PO Q7D 10/31/21 [History] HydrALAzine HCL 25 MG TAB [Apresoline 25 MG TABLET] 25 mg PO DAILY 10/31/21 [History] Sennosides [Senokot] 1 tab PO DAILY 10/31/21 [History] Trandolapril/Verapamil HCl [Trandolapr-Verapam ER 2-240 mg] 1 tab PO DAILY 10/31/21 [History] Magnesium Hydroxide [Milk of Magnesia] 400 mg PO DAILY 12/02/21 [History] PANTOPRAZOLE 40 mg Tablet [Protonix 40MG Tablet] 40 mg PO QAM 12/02/21 [History] Hx Tetanus, Diphtheria Vaccination/Date Given: Yes Hx Influenza Vaccination/Date Given: Yes Hx Pneumococcal Vaccination/Date Given: No Travel Risk - International Travel Have you traveled outside of the country in past 3 weeks: No - Coronavirus Screening Are you exhibiting any of the following symptoms?: No Close contact with a COVID-19 positive Pt in past 14-21 Days: No - Vaccine Status Have you recieved a Covid-19 vaccination: Yes 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: [employer] - Review of Systems Constitutional: No Symptoms Eyes: No Symptoms Ears, Nose, & Throat: No Symptoms Respiratory: No Symptoms Cardiac: No Symptoms Abdominal/Gastrointestinal: No Symptoms Genitourinary Symptoms: No Symptoms Musculoskeletal: No Symptoms Skin: No Symptoms Neurological: Parasthesia, Speech Changes Psychological: No Symptoms Endocrine: No Symptoms Hematologic/Lymphatic: No Symptoms Immunological/Allergic: No Symptoms All Other Systems: Reviewed and Negative - Past Medical History Pertinent Past Medical History: Yes Neurological History: No Pertinent History ENT History: No Pertinent History Cardiac History: Hypertension, Other Respiratory History: No Pertinent History Endocrine Medical History: No Pertinent History Musculoskeletal History: Osteoarthritis GI Medical History: GERD History: Renal Disease Psycho-Social History: No Pertinent History Female Reproductive Disorders: No Pertinent History Other Medical History: TIA - Past Surgical History Past Surgical History: Yes Neuro Surgical History: No Pertinent History Cardiac: No Pertinent History Respiratory: No Pertinent History Gastrointestinal: Appendectomy, Cholecystectomy Genitourinary: No Pertinent History Musculoskeletal: Joint Replacement, Orthopedic Surgery Female Surgical History: Hysterectomy Other Surgical History: left knee replacement, 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, hip fx repai r - Social History Smoking Status: Never smoker Exposure to second hand smoke: No Alcohol Use: None Drug Use: none Patient Lives Alone: No Significant Family History: heart disease, hypertension - Nursing Vital Signs Nursing Vital Signs: Initial Vital Signs Temperature 97.9 F 12/02/21 14:16 Pulse Rate 67 12/02/21 14:16 Respiratory Rate 26 H 12/02/21 14:16 Blood Pressure 126/70 12/02/21 14:16 O2 Sat by Pulse Oximetry 91 L 12/02/21 14:16 Pain Scale Pain Intensity 0 - [place] Coma Scale Best Eye Response ([place]): (4) open spontaneously Best Verbal Response ([place]): (5) oriented Best Motor Response ([place]): (6) obeys commands [place] Total: 15 - Physical Exam General Appearance: no apparent distress, alert, anxiety Eye Exam: bilateral eye: normal inspection, PERRL, EOMI Ears, Nose, Throat Exam: normal ENT inspection, moist mucous membranes Neck Exam: normal inspection, non-tender, supple, full range of motion Respiratory: normal breath sounds, lungs clear, airway intact, No chest tenderness, No respiratory distress Cardiovascular: regular rate/rhythm, normal heart sounds, normal peripheral pulses Gastrointestinal: soft, normal bowel sounds, No tenderness Pelvic Exam: not done Rectal Exam: not done Back Exam: normal inspection, normal range of motion, vertebral tenderness, No CVA tenderness Extremity Exam: normal inspection, normal range of motion, pelvis stable, parasthesia (Mild tingling in bilateral fingers) Mental Status: alert, oriented x 3, 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 Exam: normal hearing, normal speech, PERRL, tongue midline Coordination/Gait: normal finger to nose, normal gait, normal cerebellar fu nction Motor/Sensory: no motor deficit, no sensory deficit, no pronator drift Skin Exam: normal color, warm, dry SpO2 Interpretation: borderline oxygenation O2 Delivery: Room Air - Course Nursing assessment & vital signs reviewed: Yes Ordered Tests: Active Orders 24 hr Category Date Time Status EKG-ER Only STAT Care 12/02/21 15:26 Active IV Insertion STAT Care 12/02/21 15:26 Active IV Insertion-2nd Peripheral STAT Care 12/02/21 16:04 Active NPO (ED) STAT Care 12/02/21 15:26 Active HEAD WITHOUT CONTRAST [CT] Stat Exams 12/02/21 14:13 Completed CBC W DIFF Stat Lab 12/02/21 15:40 Completed CMP Stat Lab 12/02/21 15:40 Completed Occult Blood Stool [FECAL OCCULT BLOOD - SCREENING] Lab 12/02/21 15:58 Ordered Stat UA W/RFX CULTURE Stat Lab 12/02/21 16:27 Ordered Transfer Order Routine Transfer 12/02/21 Ordered Medication Summary Discontinued Medications Generic Name Dose Route Start Last Admin Trade Name Pardeep PRN Reason Stop Dose Admin Sodium Chloride 500 mls @ 500 mls/hr 12/02/21 15:26 12/02/21 16:48 Sodium Chloride 0.9% 500 Ml IV 12/02/21 16:25 Infused .Q1H ONE Infusion Sodium Chloride Confirm 12/02/21 15:44 Sodium Chloride 0.9% 500 Ml Administered 12/02/21 15:45 Dose 500 mls @ ud IV .STK-MED ONE Lab/Rad Data: Laboratory Result Diagrams 12/02/21 15:40 12/02/21 15:40 Laboratory Results 12/02/21 12/02/21 12/02/21 Range/Units 16:10 16:00 15:40 WBC (4.0-10.5) x10^3/uL RBC (4.1-5.4) x10^6/uL Hgb (12.0-16.0) g/dL Hct (35-47) % MCV (78-100) fL MCH (26-32) pg MCHC (32-36) g/dL RDW (11.5-14.0) % Plt Count (150-450) x10^3/uL MPV (7.5-11.0) fL Gran % (36.0-66.0) % Immature Gran % (Auto) (0.00-0.4) % Nucleat RBC Rel Count (0.00-0.1) % Eos # (Auto) (0-0.5) x10^3/uL Immature Gran # (Auto) (0.00-0.03) x10^3u/L Absolute Lymphs (auto) (1.0-4.6) x10^3/uL Absolute Monos (auto) (0.0-1.3) x10^3/uL Absolute Nucleated RBC (0.00-0.01) x10^3u/L Lymphocytes % (24.0-44.0) % Monocytes % (0.0-12.0) % Eosinophils % (0.00-5.0) % Basophils % (0.0-0.4) % Absolute Granulocytes (1.4-6.9) x10^3/uL Basophils # (0-0.4) x10^3/uL Sodium 137 (137-145) mmol/L Potassium 4.0 (3.5-5.1) mmol/L Chloride 103 (98-107) mmol/L Carbon Dioxide 26 (22-30) mmol/L Anion Gap 12.8 (5-15) MEQ/L BUN 32 H (7-17) mg/dL Creatinine 2.12 H (0.52-1.04) mg/dL Estimated GFR 23.4 ML/MIN Glucose 126 H (74-106) mg/dL Calcium 7.9 L (8.4-10.2) mg/dL Total Bilirubin 0.50 (0.2-1.3) mg/dL AST 20 (14-36) U/L ALT 13 (0-35) U/L Alkaline Phosphatase 75 (38-126) U/L Serum Total Protein 6.1 L (6.3-8.2) g/dL Albumin 3.2 L (3.5-5.0) g/dL Influenza Type A Ag NEGATIVE (NEGATIVE) Influenza Type B Ag NEGATIVE (NEGATIVE) RSV (PCR) NEGATIVE (Negative) SARS-CoV-2 (PCR) NEGATIVE (NEGATIVE) ABO Group Pending Rh Factor Pending Antibody Screen Pending Crossmatch Pending 12/02/21 Range/Units 15:40 WBC 10.8 H (4.0-10.5) x10^3/uL RBC 2.43 L (4.1-5.4) x10^6/uL Hgb 6.8 L* (12.0-16.0) g/dL Hct 22.7 L (35-47) % MCV 93.4 (78-100) fL MCH 28.0 (26-32) pg MCHC 30.0 L (32-36) g/dL RDW 15.8 H (11.5-14.0) % Plt Count 373 (150-450) x10^3/uL MPV 9.0 (7.5-11.0) fL Gran % 78.2 H (36.0-66.0) % Immature Gran % (Auto) 0.8 H (0.00-0.4) % Nucleat RBC Rel Count 0.0 (0.00-0.1) % Eos # (Auto) 0.12 (0-0.5) x10^3/uL Immature Gran # (Auto) 0.09 H (0.00-0.03) x10^3u/L Absolute Lymphs (auto) 1.40 (1.0-4.6) x10^3/uL Absolute Monos (auto) 0.71 (0.0-1.3) x10^3/uL Absolute Nucleated RBC 0.00 (0.00-0.01) x10^3u/L Lymphocytes % 13.0 L (24.0-44.0) % Monocytes % 6.6 (0.0-12.0) % Eosinophils % 1.1 (0.00-5.0) % Basophils % 0.3 (0.0-0.4) % Absolute Granulocytes 8.43 H (1.4-6.9) x10^3/uL Basophils # 0.03 (0-0.4) x10^3/uL Sodium (137-145) mmol/L Potassium (3.5-5.1) mmol/L Chloride (98-107) mmol/L Carbon Dioxide (22-30) mmol/L Anion Gap (5-15) MEQ/L BUN (7-17) mg/dL Creatinine (0.52-1.04) mg/dL Estimated GFR ML/MIN Glucose (74-106) mg/dL Calcium (8.4-10.2) mg/dL Total Bilirubin (0.2-1.3) mg/dL AST (14-36) U/L ALT (0-35) U/L Alkaline Phosphatase (38-126) U/L Serum Total Protein (6.3-8.2) g/dL Albumin (3.5-5.0) g/dL Influenza Type A Ag (NEGATIVE) Influenza Type B Ag (NEGATIVE) RSV (PCR) (Negative) SARS-CoV-2 (PCR) (NEGATIVE) ABO Group Rh Factor Antibody Screen Crossmatch - Progress Progress: improved Progress Note: 12/02/21 16:07 CAT scan of the head without contrast shows a normal senile brain. No acute intracranial abnormality. 12/02/21 17:48 Medical decision making: I spoke with Dr. Kwok. I reviewed the patient history and laboratory work-up. I also reviewed the results of the CAT scan of the head without contrast. Dr. Kwok commented that this patient does have episodes of syncope and TIAs in the past. She has chronic anemia but this is lower than typical for her. We will place the patient in observation. We will transfuse her with 2 units of packed red blood cells and repeat labs in the morning. We will provide the patient with Lasix after packed red blood cell infusions. Discussed with : Elvira Counseled pt/family regarding: lab results, diagnosis, rad results - Departure Departure Disposition: In-patient Admission Clinical Impression: Symptomatic anemia, Hypertension Condition: Fair Critical Care Time: Yes Critical Care Time(excluding separately billable procedures): Critical 30-74 mins (45 minutes) Referrals: MARCI KWOK MD [Primary Care Provider] - Follow up/PCP as directed
--- NOTE | 2021-12-02 14:23 | XRAY ---
Indication: Slurred speech, droopiness, and left foot weakness/numbness. Stroke. Multiple contiguous axial images obtained through the head without contrast. Comparison: November 06, 2021. Again age-appropriate global atrophy and moderate periventricular degenerative micro-ischemia bilaterally. No acute intracranial hemorrhage, abnormal extra-axial fluid collection, or mass effect. Fourth ventricle is midline without hydrocephalus. Bony calvarium intact again with incidental hyperostosis frontalis interna. Again complete opacification left mastoid air cells with interval diminished opacification left middle ear. Minimal mucosal thickening both ethmoid sinuses. Impression: 1. Stable nonacute senile brain. 2. Again complete opacification left mastoid air cells with diminished opacification left middle ear again both presumed inflammatory. 3. Minimal paranasal sinus disease.
[2021-12-02] MEDS ORDERED: Sodium Chloride 0.9% 500 ML 500 ML IV ONE ×2 (15:26→15:44)
[2021-12-02 15:46] LABS: Absolute Neutrophil Ct (ANC) 8.43 x10^3/uL (1.4-6.9); Basophil (Absolute #) 0.03 x10^3/uL (0-0.4); Eosinophil % 1.1 % (0.00-5.0); Eosinophil (Absolute #) 0.12 x10^3/uL (0-0.5); Hematocrit 22.7 % (35-47); Mean Cell Volume 93.4 fL (78-100); Monocyte (Absolute #) 0.71 x10^3/uL (0.0-1.3); Monocytes % 6.6 % (0.0-12.0); Neutrophil % 78.2 % (36.0-66.0); Platelet Count 373 x10^3/uL (150-450); Red Blood Count 2.43 x10^6/uL (4.1-5.4); Red Cell Distribution Width 15.8 % (11.5-14.0); White Blood Count 10.8 x10^3/uL (4.0-10.5)
[2021-12-02 15:52] LABS: Hemoglobin 6.8 g/dL (12.0-16.0)
[2021-12-02 16:11] LABS: ALBUMIN 3.2 g/dL (3.5-5.0); ANION GAP 12.8 MEQ/L (5-15); BILIRUBIN,TOTAL 0.5 mg/dL (0.2-1.3); Calcium 7.9 mg/dL (8.4-10.2); Creatinine 1 2.12 mg/dL (0.52-1.04); EST GLOMERULAR FILTRATION RATE 23.4 ML/MIN; Total Protein 6.1 g/dL (6.3-8.2)
[2021-12-02 16:56] LABS: INFLUENZA A NEGATIVE (NEGATIVE); INFLUENZA B NEGATIVE (NEGATIVE); RESPIRATORY SYNCTIAL VIRUS NEGATIVE (Negative); SARS-CoV-2 Xpert Express NEGATIVE (NEGATIVE)
[2021-12-02] MEDS ORDERED: Zofran 4 MG/2 ML VIAL IV PRN (18:17)
[2021-12-02] MEDS ORDERED: Lasix 20 MG/2 ML IV ONE (18:17)
[2021-12-02 18:21] LABS: ABO TYPING A; Antibody Screen NEGATIVE (NEGATIVE); RH TYPING POSITIVE
[2021-12-02] MEDS: Sodium Chloride 0.9% 1000 ML 1,000 ML IV SCH (18:21)
[2021-12-02 18:24] LABS: CROSS MATCH (PRBC) COMPATIBLE (COMPATIBLE)
[2021-12-02 19:12] LABS: Bacteria FEW /HPF (NEGATIVE); Epithelial Cells RARE /HPF (FEW); Mucus SLIGHT /HPF (NEGATIVE); RBC 0-2 /HPF (0-2); WBC 51-100 /HPF (0-5)
[2021-12-02 19:13] LABS: Appearance SLIGHTLY CLOUDY (CLEAR); Bilirubin NEGATIVE (NEGATIVE); Glucose NEGATIVE (NEGATIVE); Ketones NEGATIVE (NEGATIVE); Nitrite NEGATIVE (NEGATIVE); Protein,Urine Dip NEGATIVE (Negative); RBC NEGATIVE Ery/ul (0-5); Specific Gravity 1.015 (1.005-1.025); Urine Cultured Indicated? YES; Urobilinogen 0.2 mg/dL (0-1)
[2021-12-02 19:14] LABS: Dipstick done @ ? MAIN LAB
[2021-12-02] MEDS: TYLENOL EXTRA STRENGTH 500 MG PO PRN (19:55)
[2021-12-02] MEDS: Apresoline 25 MG TABLET PO SCH (19:55)
[2021-12-02] MEDS: APRESOLINE 20 MG/ML INJ IV PRN (23:24)
[2021-12-03 03:19] LABS: Absolute Neutrophil Ct (ANC) 7.71 x10^3/uL (1.4-6.9); Basophil (Absolute #) 0.03 x10^3/uL (0-0.4); Eosinophil % 1.9 % (0.00-5.0); Hematocrit 31.3 % (35-47); Hemoglobin 9.8 g/dL (12.0-16.0); Lymphocytes % 14.5 % (24.0-44.0); Mean Cell Volume 92.1 fL (78-100); Mean Corpuscular Hemoglobin 28.8 pg (26-32); Mean Corpuscular Hgb Concent. 31.3 g/dL (32-36); Mean Platelet Volume 9.6 fL (7.5-11.0); Monocyte (Absolute #) 0.77 x10^3/uL (0.0-1.3); Monocytes % 7.5 % (0.0-12.0); Neutrophil % 74.7 % (36.0-66.0); Platelet Count 375 x10^3/uL (150-450); Red Cell Distribution Width 15.1 % (11.5-14.0); White Blood Count 10.3 x10^3/uL (4.0-10.5)
[2021-12-03 03:32] LABS: ALBUMIN 3.2 g/dL (3.5-5.0); ANION GAP 13.4 MEQ/L (5-15); Creatinine 1 1.76 mg/dL (0.52-1.04); Potassium 3.9 mmol/L (3.5-5.1); Total Protein 6.3 g/dL (6.3-8.2)
[2021-12-03] MEDS: APRESOLINE 20 MG/ML INJ IV PRN ×2 (04:19→08:19)
[2021-12-03] MEDS: TYLENOL 325 MG PO PRN (04:30)
[2021-12-03] MEDS ORDERED: SENOKOT 8.6 MG PO PRN (07:26)
--- NOTE | 2021-12-03 09:02 | PCM.HP ---
History of Present Illness - Chief Complaint Chief Complaint: Symptomatic anemia History of Present Illness: is a 86 year old female pt who came in to ER with speech changes and L sided weakness; was admitted with TIA and anemia and received 2 units of PRBC. Changes resolved by the time EMS came. Has a hx of anemia and her hgb was worse than usual, 6.8, on admission. Pt says the last thing she remembers is shortness of breath and hand numbness for 2d. no hx blood clots. not on O2 at home. Had hip replacement 11/09/21. Some calf swelling R>L. Medications & Allergies Home Medications: Home Medication List Aspirin 81 mg PO DAILY 10/20/15 [History Confirmed 12/02/21] HydrALAzine HCL 25 MG TAB [Apresoline 25 MG TABLET] 50 mg PO HS 10/20/15 [History Confirmed 12/02/21] Furosemide 20 mg [Lasix 20 mg] 20 mg PO DAILY 09/05/17 [History Confirmed 12/02/21] Acetaminophen 500 mg [Tylenol Extra Strength 500 mg] 500 mg PO HS PRN 10/31/21 [History Confirmed 12/02/21] Clopidogrel Bisulfate [PLAVIX Tablet] 75 mg PO DAILY 10/31/21 [History Confirmed 12/02/21] HydrALAzine HCL 25 MG TAB [Apresoline 25 MG TABLET] 25 mg PO DAILY 10/31/21 [History Confirmed 12/02/21] Sennosides [Senokot] 1 tab PO DAILY PRN 10/31/21 [History Confirmed 12/02/21] PANTOPRAZOLE 40 mg Tablet [Protonix 40MG Tablet] 40 mg PO QAM 12/02/21 [History Confirmed 12/02/21] Trandolapril/Verapamil HCl [Trandolapr-Verapam ER 2-240 mg] 2 - 240 mg PO DAILY 12/02/21 [History Confirmed 12/02/21] Allergies/Adverse Reactions: Allergies Allergy/AdvReac Type Severity Reaction Status Date / Time butalbital [From Fiorinal] Allergy Verified 12/02/21 14:31 caffeine [From Fiorinal] Allergy Verified 12/02/21 14:31 narcotics AdvReac Intermediate disoriented Uncoded 12/02/21 14:31 - Past Medical History Past Medical History: Yes Neurological History: No Pertinent History ENT History: No Pertinent History Cardiac History: Hypertension, Other Respiratory History: No Pertinent History Endocrine Medical History: No Pertinent History Musculoskelatal History: Osteoarthritis GI Medical History: GERD History: Renal Disease Pyscho-Social History: No Pertinent History Reproductive Disorders: No Pertinent History Comment: TIA - Female History Are you now?: No - Past Surgical History Past Surgical History: Yes Neuro Surgical History: No Pertinent History Cardiac History: No Pertinent History Respiratory Surgery: No Pertinent History GI Surgical History: Appendectomy, Cholecystectomy Genitourinary Surgical Hx: No Pertinent History Musculskeletal Surgical Hx: Joint Replacement, Orthopedic Surgery Female Surgical History: Hysterectomy Other Surgical History: left knee replacement, 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, hip fx repair - Social History Smoking Status: Never smoker Exposure to second hand smoke: No Alcohol: None Drug Use: none Significant Family History: heart disease, hypertension - Physical Exam Vital Signs: Vital Signs - 24 hr Temp Pulse Resp BP Pulse Ox 12/03/21 07:40 98.2 F 91 H 16 171/88 96 12/03/21 06:00 92 H 199/90 12/03/21 04:00 97.3 F 92 H 24 200/95 98 12/03/21 02:00 84 163/77 12/02/21 23:50 96 12/02/21 23:31 97.5 F 81 30 H 194/87 96 12/02/21 19:58 97.5 F 80 26 H 186/84 97 12/02/21 18:39 97.9 F 71 18 160/76 97 12/02/21 16:15 71 27 H 160/76 91 L 12/02/21 15:08 63 28 H 132/80 91 L 12/02/21 14:16 97.9 F 67 26 H 126/70 91 L General Appearance: no apparent distress, obese Neurologic Exam: alert, cooperative Eye Exam: eyes nml inspection Ears, Nose, Throat Exam: moist mucous membranes Neck Exam: normal inspection Respiratory Exam: normal breath sounds, wheezing (faint scattered exp wheeze), No crackles/rales, No rhonchi Cardiovascular Exam: regular rate/rhythm, normal heart sounds, No murmur Gastrointestinal/Abdomen Exam: soft, normal bowel sounds, No tenderness, No distention, No mass, No guarding, No rebound Extremity Exam: other (scattered bruising. 2+ pitting edema on R, 1+ on L. Mild TTP R calf.) Skin Exam: normal color, warm, dry, No rash Results - Labs Lab/Micro Results: Lab Results-Last 24 Hours 12/02/21 12/02/21 12/02/21 Range/Units 15:40 15:40 16:00 WBC 10.8 H (4.0-10.5) x10^3/uL RBC 2.43 L (4.1-5.4) x10^6/uL Hgb 6.8 L* (12.0-16.0) g/dL Hct 22.7 L (35-47) % MCV 93.4 (78-100) fL MCH 28.0 (26-32) pg MCHC 30.0 L (32-36) g/dL RDW 15.8 H (11.5-14.0) % Plt Count 373 (150-450) x10^3/uL MPV 9.0 (7.5-11.0) fL Gran % 78.2 H (36.0-66.0) % Immature Gran % (Auto) 0.8 H (0.00-0.4) % Nucleat RBC Rel Count 0.0 (0.00-0.1) % Eos # (Auto) 0.12 (0-0.5) x10^3/uL Immature Gran # (Auto) 0.09 H (0.00-0.03) x10^3u/L Absolute Lymphs (auto) 1.40 (1.0-4.6) x10^3/uL Absolute Monos (auto) 0.71 (0.0-1.3) x10^3/uL Absolute Nucleated RBC 0.00 (0.00-0.01) x10^3u/L Lymphocytes % 13.0 L (24.0-44.0) % Monocytes % 6.6 (0.0-12.0) % Eosinophils % 1.1 (0.00-5.0) % Basophils % 0.3 (0.0-0.4) % Absolute Granulocytes 8.43 H (1.4-6.9) x10^3/uL Basophils # 0.03 (0-0.4) x10^3/uL Sodium 137 (137-145) mmol/L Potassium 4.0 (3.5-5.1) mmol/L Chloride 103 (98-107) mmol/L Carbon Dioxide 26 (22-30) mmol/L Anion Gap 12.8 (5-15) MEQ/L BUN 32 H (7-17) mg/dL Creatinine 2.12 H (0.52-1.04) mg/dL Estimated GFR 23.4 ML/MIN Glucose 126 H (74-106) mg/dL Calcium 7.9 L (8.4-10.2) mg/dL Total Bilirubin 0.50 (0.2-1.3) mg/dL AST 20 (14-36) U/L ALT 13 (0-35) U/L Alkaline Phosphatase 75 (38-126) U/L Serum Total Protein 6.1 L (6.3-8.2) g/dL Albumin 3.2 L (3.5-5.0) g/dL Urinalys Dipstick Clnc Urine Color (YELLOW) Urine Appearance (CLEAR) Urine pH (5-6) Ur Specific [place] (1.005-1.025) POC Urine Protein Conf (Negative) Urine Ketones (NEGATIVE) Urine Nitrite (NEGATIVE) Urine Bilirubin (NEGATIVE) Urine Urobilinogen (0-1) mg/dL Urine Leukocytes (NEGATIVE) Urine WBC (Auto) (0-5) /HPF Urine RBC (Auto) (0-2) /HPF U Hyaline Cast (Auto) (0-2) /LPF U Epithel Cells (Auto) (FEW) /HPF Urine Bacteria (Auto) (NEGATIVE) /HPF Urine RBC (0-5) Salas/ul Urine Mucus (Auto) (NEGATIVE) /HPF Ur Culture Indicated? Urine Glucose (NEGATIVE) mg/dL Influenza Type A Ag (NEGATIVE) Influenza Type B Ag (NEGATIVE) RSV (PCR) (Negative) SARS-CoV-2 (PCR) (NEGATIVE) ABO Group A Rh Factor POSITIVE Antibody Screen NEGATIVE (NEGATIVE) Crossmatch COMPATIBLE (COMPATIBLE) 12/02/21 12/02/21 12/02/21 Range/Units 16:00 16:00 16:10 WBC (4.0-10.5) x10^3/uL RBC (4.1-5.4) x10^6/uL Hgb (12.0-16.0) g/dL Hct (35-47) % MCV (78-100) fL MCH (26-32) pg MCHC (32-36) g/dL RDW (11.5-14.0) % Plt Count (150-450) x10^3/uL MPV (7.5-11.0) fL Gran % (36.0-66.0) % Immature Gran % (Auto) (0.00-0.4) % Nucleat RBC Rel Count (0.00-0.1) % Eos # (Auto) (0-0.5) x10^3/uL Immature Gran # (Auto) (0.00-0.03) x10^3u/L Absolute Lymphs (auto) (1.0-4.6) x10^3/uL Absolute Monos (auto) (0.0-1.3) x10^3/uL Absolute Nucleated RBC (0.00-0.01) x10^3u/L Lymphocytes % (24.0-44.0) % Monocytes % (0.0-12.0) % Eosinophils % (0.00-5.0) % Basophils % (0.0-0.4) % Absolute Granulocytes (1.4-6.9) x10^3/uL Basophils # (0-0.4) x10^3/uL Sodium (137-145) mmol/L Potassium (3.5-5.1) mmol/L Chloride (98-107) mmol/L Carbon Dioxide (22-30) mmol/L Anion Gap (5-15) MEQ/L BUN (7-17) mg/dL Creatinine (0.52-1.04) mg/dL Estimated GFR ML/MIN Glucose (74-106) mg/dL Calcium (8.4-10.2) mg/dL Total Bilirubin (0.2-1.3) mg/dL AST (14-36) U/L ALT (0-35) U/L Alkaline Phosphatase (38-126) U/L Serum Total Protein (6.3-8.2) g/dL Albumin (3.5-5.0) g/dL Urinalys Dipstick Clnc Urine Color (YELLOW) Urine Appearance (CLEAR) Urine pH (5-6) Ur Specific [place] (1.005-1.025) POC Urine Protein Conf (Negative) Urine Ketones (NEGATIVE) Urine Nitrite (NEGATIVE) Urine Bilirubin (NEGATIVE) Urine Urobilinogen (0-1) mg/dL Urine Leukocytes (NEGATIVE) Urine WBC (Auto) (0-5) /HPF Urine RBC (Auto) (0-2) /HPF U Hyaline Cast (Auto) (0-2) /LPF U Epithel Cells (Auto) (FEW) /HPF Urine Bacteria (Auto) (NEGATIVE) /HPF Urine RBC (0-5) Salas/ul Urine Mucus (Auto) (NEGATIVE) /HPF Ur Culture Indicated? Urine Glucose (NEGATIVE) mg/dL Influenza Type A Ag NEGATIVE (NEGATIVE) Influenza Type B Ag NEGATIVE (NEGATIVE) RSV (PCR) NEGATIVE (Negative) SARS-CoV-2 (PCR) NEGATIVE (NEGATIVE) ABO Group Rh Factor Antibody Screen (NEGATIVE) Crossmatch COMPATIBLE COMPATIBLE (COMPATIBLE) 12/02/21 12/03/21 12/03/21 Range/Units 16:27 03:15 03:15 WBC 10.3 (4.0-10.5) x10^3/uL RBC 3.40 L (4.1-5.4) x10^6/uL Hgb 9.8 L D (12.0-16.0) g/dL Hct 31.3 L (35-47) % MCV 92.1 (78-100) fL MCH 28.8 (26-32) pg MCHC 31.3 L (32-36) g/dL RDW 15.1 H (11.5-14.0) % Plt Count 375 (150-450) x10^3/uL MPV 9.6 (7.5-11.0) fL Gran % 74.7 H (36.0-66.0) % Immature Gran % (Auto) 1.1 H (0.00-0.4) % Nucleat RBC Rel Count 0.0 (0.00-0.1) % Eos # (Auto) 0.20 (0-0.5) x10^3/uL Immature Gran # (Auto) 0.11 H (0.00-0.03) x10^3u/L Absolute Lymphs (auto) 1.50 (1.0-4.6) x10^3/uL Absolute Monos (auto) 0.77 (0.0-1.3) x10^3/uL Absolute Nucleated RBC 0.00 (0.00-0.01) x10^3u/L Lymphocytes % 14.5 L (24.0-44.0) % Monocytes % 7.5 (0.0-12.0) % Eosinophils % 1.9 (0.00-5.0) % Basophils % 0.3 (0.0-0.4) % Absolute Granulocytes 7.71 H (1.4-6.9) x10^3/uL Basophils # 0.03 (0-0.4) x10^3/uL Sodium 139 (137-145) mmol/L Potassium 3.9 (3.5-5.1) mmol/L Chloride 104 (98-107) mmol/L Carbon Dioxide 25 (22-30) mmol/L Anion Gap 13.4 (5-15) MEQ/L BUN 29 H (7-17) mg/dL Creatinine 1.76 H (0.52-1.04) mg/dL Estimated GFR 29.0 ML/MIN Glucose 102 (74-106) mg/dL Calcium 8.0 L (8.4-10.2) mg/dL Total Bilirubin 1.00 (0.2-1.3) mg/dL AST 22 (14-36) U/L ALT 13 (0-35) U/L Alkaline Phosphatase 80 (38-126) U/L Serum Total Protein 6.3 (6.3-8.2) g/dL Albumin 3.2 L (3.5-5.0) g/dL Urinalys Dipstick Clnc MAIN LAB Urine Color YELLOW (YELLOW) Urine Appearance SLIGHTLY CLOUDY (CLEAR) Urine pH 5.0 (5-6) Ur Specific [place] 1.015 (1.005-1.025) POC Urine Protein Conf NEGATIVE (Negative) Urine Ketones NEGATIVE (NEGATIVE) Urine Nitrite NEGATIVE (NEGATIVE) Urine Bilirubin NEGATIVE (NEGATIVE) Urine Urobilinogen 0.2 (0-1) mg/dL Urine Leukocytes SMALL (NEGATIVE) Urine WBC (Auto) 51-100 (0-5) /HPF Urine RBC (Auto) 0-2 (0-2) /HPF U Hyaline Cast (Auto) 6-10 (0-2) /LPF U Epithel Cells (Auto) RARE (FEW) /HPF Urine Bacteria (Auto) FEW (NEGATIVE) /HPF Urine RBC NEGATIVE (0-5) Salas/ul Urine Mucus (Auto) SLIGHT (NEGATIVE) /HPF Ur Culture Indicated? YES Urine Glucose NEGATIVE (NEGATIVE) mg/dL Influenza Type A Ag (NEGATIVE) Influenza Type B Ag (NEGATIVE) RSV (PCR) (Negative) SARS-CoV-2 (PCR) (NEGATIVE) ABO Group Rh Factor Antibody Screen (NEGATIVE) Crossmatch (COMPATIBLE) Microbiology 12/02/21 16:27 Urine Culture - Preliminary Clean Catch Midstream NO GROWTH TO DATE - Radiology Impressions Radiology Exams & Impressions: Radiology Procedures Category Date Time Status HEAD WITHOUT CONTRAST [CT] Stat Exams 12/02/21 14:13 Completed - Other Procedures and Tests Respiratory Therapy 12/02/21 23:50 Oxygen Nasal Cannula 2 lpm Assessment/Plan (1) TIA (transient ischemic attack) Current Visit: No Status: Resolved Assessment & Plan: Pt's granddaughter and co-POA is at bedside - discussed that they would like pt to be comfortable, some interventions are fine but they would like to be careful about what interventions they do. For example, statins cause leg soreness and they opt not to do that. Also, pt feels bad at normal BPs so they would like for her to run a little higher (150s systolic). Code(s): G45.9 - TRANSIENT CEREBRAL ISCHEMIC ATTACK, UNSPECIFIED (2) Hypertensive emergency Current Visit: Yes Status: Acute Assessment & Plan: BP 200 systolic - was just given 10mg hydralazine IV. Pt's granddaughter says pt normally takes her a.m. meds at 0600 - will give am meds 30min after the hydralazine, after checking BP. Code(s): I16.1 - HYPERTENSIVE EMERGENCY (3) Shortness of breath Current Visit: Yes Status: Acute Assessment & Plan: on 3L O2. If u/s legs neg, will check d-dimer. Code(s): R06.02 - SHORTNESS OF BREATH (4) Anxiety Current Visit: Yes Status: Acute Assessment & Plan: Granddaughter thinks many sx of SOB may be related to anxiety. will add buspar. Code(s): F41.9 - ANXIETY DISORDER, UNSPECIFIED (5) Acute on chronic renal insufficiency Current Visit: Yes Status: Acute Assessment & Plan: Will resume IVF at 50mL/hr in an effort to improve eGFR (today is 29, typically in 30s-40s). Discussed renal function with granddaughter. Code(s): N28.9 - DISORDER OF KIDNEY AND URETER, UNSPECIFIED; N18.9 - CHRONIC KIDNEY DISEASE, UNSPECIFIED (6) Right leg pain Current Visit: Yes Status: Acute Assessment & Plan: check dopplers for DVT. Code(s): M79.604 - PAIN IN RIGHT LEG (7) Edema of both legs Current Visit: Yes Status: Chronic Code(s): R60.0 - LOCALIZED EDEMA (8) History of hip replacement Current Visit: Yes Status: Acute Qualifiers: Laterality: unspecified laterality Qualified Code(s): Z96.649 - Presence of unspecified artificial hip joint Assessment & Plan: on 11/09/21. Code(s): Z96.649 - PRESENCE OF UNSPECIFIED ARTIFICIAL HIP JOINT (9) Hypertension Current Visit: Yes Status: Chronic Qualifiers: Hypertension type: primary hypertension Qualified Code(s): I10 - Essential (primary) hypertension Code(s): I10 - ESSENTIAL (PRIMARY) HYPERTENSION (10) Symptomatic anemia Current Visit: Yes Status: Chronic Assessment & Plan: worse here, requiring 2 u PRBC. Code(s): D64.9 - ANEMIA, UNSPECIFIED
[2021-12-03] MEDS ORDERED: VERAPAMIL HCL PO SCH (10:00)
[2021-12-03] MEDS ORDERED: TRANDOLAPRIL PO SCH (10:00)
[2021-12-03] MEDS ORDERED: [UNRECOGNIZED DRUG - OTHER] PO SCH (10:00)
[2021-12-03] MEDS ORDERED: NON-FORMULARY ITEM (Aspirin [Aspirin] 81 MG Tablet) PO SCH (10:00)
[2021-12-03] MEDS: Sodium Chloride 0.9% 1000 ML 1,000 ML IV SCH (10:02)
--- NOTE | 2021-12-03 10:02 | XRAY ---
Indication: Short of breath. Two-dimensional sonogram and color Doppler imaging of the major venous vessels of the left and right leg performed. Comparison: None No thrombus seen in the examined deep venous vessels of the left and right leg including greater saphenous vein. Veins demonstrate normal compressibility. Venous waveforms are normal with and without augmentation. Impression: Left and right legs negative for DVT.
[2021-12-03] MEDS: ISOPTIN SR PO SCH (10:04)
[2021-12-03] MEDS: ECOTRIN 81 MG PO SCH (10:05)
[2021-12-03] MEDS: Mavik 2 MG PO SCH (10:05)
[2021-12-03] MEDS: Protonix 40MG Tablet PO SCH (10:05)
[2021-12-03] MEDS: PLAVIX Tablet PO SCH (10:06)
[2021-12-03] MEDS: BUSPAR 5 MG PO SCH ×2 (10:08→21:35)
--- NOTE | 2021-12-03 10:08 | XRAY ---
Indication: Short of breath. Comparison: November 06, 2021. Portable chest demonstrates new borderline cardiomegaly, central vascular congestion, and moderate left/mild right pleural effusions with bibasilar atelectasis favoring cardiac decompensation/CHF. Superimposed pneumonia not completely excluded.
[2021-12-03] MEDS ORDERED: Lasix 20 MG/2 ML IV SCH (12:00)
[2021-12-03] MEDS: Apresoline 25 MG TABLET PO SCH ×2 (12:38→21:35)
[2021-12-03] MEDS: ROCEPHIN 1 Gm-D5w 50 ml Bag** 1 G/50 ML IVPB IV SCH (14:37)
[2021-12-03] MEDS: Zithromax 500 MG/ 250 ML NaCl Premix 500 MG/250 ML IVPB IV SCH (15:30)
[2021-12-03] MEDS: TYLENOL EXTRA STRENGTH 500 MG PO PRN (21:34)
[2021-12-03] MEDS: BENADRYL 25 MG CAPSULE PO PRN (21:35)
[2021-12-04 05:31] LABS: Hematocrit 30.8 % (35-47); Hemoglobin 9.7 g/dL (12.0-16.0); Mean Cell Volume 91.7 fL (78-100); Mean Corpuscular Hemoglobin 28.9 pg (26-32); Mean Corpuscular Hgb Concent. 31.5 g/dL (32-36); Mean Platelet Volume 10.1 fL (7.5-11.0); Platelet Count 399 x10^3/uL (150-450); Red Blood Count 3.36 x10^6/uL (4.1-5.4); Red Cell Distribution Width 15.9 % (11.5-14.0); White Blood Count 9.3 x10^3/uL (4.0-10.5)
[2021-12-04 05:44] LABS: ALBUMIN 3.2 g/dL (3.5-5.0); ANION GAP 12.5 MEQ/L (5-15); BILIRUBIN,TOTAL 0.7 mg/dL (0.2-1.3); Calcium 8.1 mg/dL (8.4-10.2); Creatinine 1 1.49 mg/dL (0.52-1.04); EST GLOMERULAR FILTRATION RATE 35.2 ML/MIN; Potassium 3.9 mmol/L (3.5-5.1); Total Protein 6.3 g/dL (6.3-8.2)
[2021-12-04] MEDS: PLAVIX Tablet PO SCH (08:00)
[2021-12-04] MEDS: ISOPTIN SR PO SCH (08:00)
[2021-12-04] MEDS: Mavik 2 MG PO SCH (08:00)
[2021-12-04] MEDS: Protonix 40MG Tablet PO SCH (08:00)
[2021-12-04] MEDS: ECOTRIN 81 MG PO SCH (08:00)
[2021-12-04] MEDS: BUSPAR 5 MG PO SCH ×2 (08:00→21:03)
[2021-12-04] MEDS: Sodium Chloride 0.9% 1000 ML 1,000 ML IV SCH (08:35)
--- NOTE | 2021-12-04 08:52 | PCM.NOTE ---
Date and Time: 12/04/21843 Subjective Assessment: Pt is feeling "so-so," denying pain this morning. Didn't get her morning meds until after 8 am - her 8am bp was 227/100. Denying nausea. Only SOB when she is off her O2. Objective Exam General Appearance: no apparent distress, alert Neurologic Exam: oriented x 3, cooperative Skin Exam: normal color, warm, dry, No rash Eye Exam: eyes nml inspection Ears, Nose, Throat Exam: moist mucous membranes Neck Exam: normal inspection Respiratory Exam: normal breath sounds, lungs clear, No crackles/rales, No rhonchi, No wheezing Cardiovascular Exam: regular rate/rhythm, normal heart sounds, No murmur Extremity Exam: pedal edema, swelling (1+ pretibial edema bilat) Back Exam: normal inspection, No rash OBJECTIVE DATA Vital Signs: Vital Signs - 24 hr Temp Pulse Resp BP Pulse Ox 12/04/21 08:00 98.1 F 92 H 32 H 227/100 94 L 12/04/21 07:06 93 L 12/04/21 04:00 98.0 F 82 24 184/83 93 L 12/03/21 23:36 97.9 F 81 24 167/75 92 L 12/03/21 20:26 93 L 12/03/21 20:05 97.7 F 83 22 174/73 96 12/03/21 16:00 97.9 F 69 16 134/67 94 L 12/03/21 12:38 82 170/79 12/03/21 11:00 97.9 F 83 20 153/77 93 L 12/03/21 08:49 94 L Pain Assessment - Last Documented Pain Intensity 0 Pain Scale Used 0-10 Pain Scale Intake and Output: Intake & Output 12/01/21 12/02/21 12/03/21 12/04/21 11:59 11:59 11:59 11:59 Intake Total 440 1995 Output Total 1900 500 Balance -1460 1495 Weight 68 kg 68.2 kg Lab Results: Lab Results-Last 24 Hours 12/03/21 12/04/21 12/04/21 Range/Units 12:27 04:35 04:35 WBC 9.3 (4.0-10.5) x10^3/uL RBC 3.36 L (4.1-5.4) x10^6/uL Hgb 9.7 L (12.0-16.0) g/dL Hct 30.8 L (35-47) % MCV 91.7 (78-100) fL MCH 28.9 (26-32) pg MCHC 31.5 L (32-36) g/dL RDW 15.9 H (11.5-14.0) % Plt Count 399 (150-450) x10^3/uL MPV 10.1 (7.5-11.0) fL D-Dimer 1.76 H* (0.0-0.50) mg/L Sodium 138 (137-145) mmol/L Potassium 3.9 (3.5-5.1) mmol/L Chloride 106 (98-107) mmol/L Carbon Dioxide 24 (22-30) mmol/L Anion Gap 12.5 (5-15) MEQ/L BUN 25 H (7-17) mg/dL Creatinine 1.49 H (0.52-1.04) mg/dL Estimated GFR 35.2 ML/MIN Glucose 89 (74-106) mg/dL Calcium 8.1 L (8.4-10.2) mg/dL Total Bilirubin 0.70 (0.2-1.3) mg/dL AST 16 (14-36) U/L ALT 12 (0-35) U/L Alkaline Phosphatase 77 (38-126) U/L Serum Total Protein 6.3 (6.3-8.2) g/dL Albumin 3.2 L (3.5-5.0) g/dL Radiology Exams: Radiology Procedures Category Date Time Status CHEST 1 VIEW (PORTABLE) Routine Exams 12/03/21 09:00 Completed HEAD WITHOUT CONTRAST [CT] Stat Exams 12/02/21 14:13 Completed PULMONARY PERF PARTICULATE [NUCMED] Urgent Exams 12/05/21 13:32 Ordered VENOUS BILATERAL EXTREMITY [US] Stat Exams 12/03/21 09:00 Completed Multi-Disciplinary Progress Notes: Multi-Disciplinary Progress Notes 12/03/21 11:56 Case Management Note by Cary Pennington PATIENT CURRENTLY IS A PATIENT OF [facility]. THEY WERE NOTIFIED PATIENT HERE INPT. THEY WILL NEED NOTIFIED AT TIME OF DC AT [phone]. THEY WILL NEED FAXED THE DC INSTRUCTIONS, DC MED LIST AND DC SUMMARY (IF AVAILABLE) TO [phone] Initialized on 12/03/21 11:56 - END OF NOTE 12/03/21 11:11 Respiratory Note by Sandra Steiner 1050 SPO2 95% AT REST ON N/C 3LPM, ROOM AIR SPO2 AT REST 81%. PLACED BACK ON N/C 3LPM Initialized on 12/03/21 11:11 - END OF NOTE Assessment/Plan (1) CAD (coronary artery disease) Current Visit: Yes Status: Acute Qualifiers: Coronary Disease-Associated Artery/Lesion type: bypass graft [place] vs. transplanted heart: [place] heart Associated angina: without angina Qualified Code(s): I25.810 - Atherosclerosis of coronary artery bypass graft(s) without angina pectoris Assessment & Plan: Overall, she is acutely better. However, prognosis is poor overall with her CAD, uncontrolled HTN, hx TIAs, stents in coronary and renal arteries, and CHF. Code(s): I25.10 - ATHSCL HEART DISEASE OF [place] CORONARY ARTERY W/O ANG PCTRS (2) TIA (transient ischemic attack) Current Visit: No Status: Resolved Assessment & Plan: Overall, she is acutely better. However, prognosis is poor overall with her CAD, uncontrolled HTN, Code(s): G45.9 - TRANSIENT CEREBRAL ISCHEMIC ATTACK, UNSPECIFIED (3) Hypertensive urgency Current Visit: Yes Status: Acute Assessment & Plan: Continues to have elevated bp, although mid-day (11am to 4 pm) she runs 120s- 130s systolic. I spoke with the granddaughter, and over the years this current BP regimen is the best they have come up with. I will have Dr. Rod check in, but plan tentatively to send pt back home tomorrow. Code(s): I16.0 - HYPERTENSIVE URGENCY (4) Hypertensive emergency Current Visit: Yes Status: Resolved Code(s): I16.1 - HYPERTENSIVE EMERGENCY (5) Shortness of breath Current Visit: Yes Status: Acute Code(s): R06.02 - SHORTNESS OF BREATH (6) Anxiety Current Visit: Yes Status: Chronic Assessment & Plan: started buspirone. Code(s): F41.9 - ANXIETY DISORDER, UNSPECIFIED (7) Acute on chronic renal insufficiency Current Visit: Yes Status: Acute Assessment & Plan: eGFR up to 35 this morning so I will gently diurese a little more. Code(s): N28.9 - DISORDER OF KIDNEY AND URETER, UNSPECIFIED; N18.9 - CHRONIC KIDNEY DISEASE, UNSPECIFIED (8) Right leg pain Current Visit: Yes Status: Resolved Assessment & Plan: neg for DVT Code(s): M79.604 - PAIN IN RIGHT LEG (9) Edema of both legs Current Visit: Yes Status: Chronic Code(s): R60.0 - LOCALIZED EDEMA (10) History of hip replacement Current Visit: Yes Status: Acute Qualifiers: Laterality: unspecified laterality Qualified Code(s): Z96.649 - Presence of unspecified artificial hip joint Code(s): Z96.649 - PRESENCE OF UNSPECIFIED ARTIFICIAL HIP JOINT (11) Hypertension Current Visit: Yes Status: Chronic Qualifiers: Hypertension type: primary hypertension Qualified Code(s): I10 - Essential (primary) hypertension Assessment & Plan: Uncontrolled on several meds, with coronary and renal stents, and TIAs/CVAs. Family is interested in hospice. I did discuss with granddaughter, and we discussed that there are 3 local hospice providers immediately available (at least) and all provide equal benefits and equal care - it is up to family to decide who they would like to choose. Family met with one hospice provider already this morning. Code(s): I10 - ESSENTIAL (PRIMARY) HYPERTENSION (12) Symptomatic anemia Current Visit: Yes Status: Chronic Code(s): D64.9 - ANEMIA, UNSPECIFIED (13) CHF exacerbation Current Visit: Yes Status: Acute Qualifiers: Heart failure type: unspecified Qualified Code(s): I50.9 - Heart failure, unspecified Code(s): I50.9 - HEART FAILURE, UNSPECIFIED (14) Pneumonia Current Visit: No Status: Acute Qualifiers: Pneumonia type: due to unspecified organism Laterality: bilateral Lung location: lower lobe of lung Qualified Code(s): J18.9 - Pneumonia, unspecified organism Assessment & Plan: Possible - added rocephin and zithromax yesterday. Code(s): J18.9 - PNEUMONIA, UNSPECIFIED ORGANISM
[2021-12-04] MEDS ORDERED: Lasix 20 MG/2 ML IV ONE ×2 (10:00→13:00)
[2021-12-04] MEDS: ROCEPHIN 1 Gm-D5w 50 ml Bag** 1 G/50 ML IVPB IV SCH (10:23)
[2021-12-04] MEDS: Zithromax 500 MG/ 250 ML NaCl Premix 500 MG/250 ML IVPB IV SCH (11:34)
--- NOTE | 2021-12-04 13:10 | CONS ---
CONSULT DATE: 12/04/2021 BRIEF HISTORY: This is an 86-year-old female with long standing history of hypertension and coronary artery disease. She was seen because of labile hypertension. The patient is recovering in a swing-bed getting physical therapy and being monitored and was noted to have blood pressure in the morning in the hypertensive range going over 200 systolic but during the daytime and in the evening the blood pressure remained in the normal range. She has a history of labile hypertension which has been quite difficult to control. She denies any chest pain but she gets short of breath with little exertion. She also has peripheral edema. She had a venous Doppler study which did not show any evidence of deep vein thrombosis. CURRENT MEDICATIONS: Tarka 2-240 mg, aspirin 81 mg, Plavix 75 mg, Lasix 20 mg a day, hydralazine 25 mg in the morning and 50 mg in the evening, furosemide 20 mg a day. REVIEW OF SYSTEMS: [employer] DEVELOPER: She has history of transient ischemic attack. RESPIRATORY: No chronic cough. No hemoptysis. GI: No history of peptic ulcer or colon disorder. : Negative for dysuria. PERIPHERAL VASCULAR: No history of deep vein thrombosis. She has had some leg edema. PAST MEDICAL HISTORY: Chronic renal failure. PAST SURGICAL HISTORY: Hysterectomy. Appendectomy. Knee surgery. Coronary stents. Venous stents. SOCIAL HISTORY: She is currently under the care of her daughter. She does not smoke and no alcohol intake. PHYSICAL EXAMINATION: Her blood pressure 139/63 at noon, heart rate is about 65, respirations about 14. GENERAL: The patient is an elderly female who is alert, oriented, conversant who is not in any form of distress, somewhat hard of hearing. HEENT: Unremarkable. NECK: No obvious JVD. CHEST: There are some basal crackles. CARDIAC: Heart tones are normal. The rhythm is regular. There is no audible gallop. There is a grade 2/6 mid systolic murmur. ABDOMEN: Soft with normal bowel sounds. EXTREMITIES: There is bilateral leg edema with scattered ecchymosis. LAB DATA AND DIAGNOSTIC TESTS: The EKG done 12/02/2021 shows normal sinus rhythm with poor R-progression probably from old anteroseptal myocardial infarction. IMPRESSION: 1) Hypertension with renal disease, labile. Will try to split the Tarka as the patient must not have sustained blood levels when given once a day. Will continue the rest of the medical regimen. She has had significant leg edema, will give her a dose of diuretics. 2) Coronary artery disease status post previous coronary stenting currently angina free.
[2021-12-04] MEDS: Apresoline 25 MG TABLET PO SCH ×2 (13:11→21:04)
[2021-12-04] MEDS: BENADRYL 25 MG CAPSULE PO PRN (21:02)
[2021-12-04] MEDS: TYLENOL EXTRA STRENGTH 500 MG PO PRN (21:03)
[2021-12-05 04:41] LABS: Hematocrit 31.9 % (35-47); Mean Corpuscular Hemoglobin 29.2 pg (26-32); Mean Corpuscular Hgb Concent. 31.3 g/dL (32-36); Mean Platelet Volume 9.6 fL (7.5-11.0); Platelet Count 388 x10^3/uL (150-450); Red Blood Count 3.43 x10^6/uL (4.1-5.4); Red Cell Distribution Width 15.7 % (11.5-14.0); White Blood Count 9.5 x10^3/uL (4.0-10.5)
[2021-12-05 05:11] LABS: ANION GAP 11.2 MEQ/L (5-15); Calcium 8.1 mg/dL (8.4-10.2); Creatinine 1 1.38 mg/dL (0.52-1.04); EST GLOMERULAR FILTRATION RATE 38.4 ML/MIN; Potassium 3.9 mmol/L (3.5-5.1)
[2021-12-05] MEDS ORDERED: Mavik 2 MG PO SCH (06:00)
[2021-12-05] MEDS ORDERED: ISOPTIN SR PO SCH (06:00)
[2021-12-05] MEDS ORDERED: Mavik 2 MG ONE (06:05)
[2021-12-05] MEDS ORDERED: ISOPTIN SR PO ONE (06:05)
[2021-12-05] MEDS: ISOPTIN SR PO SCH ×2 (06:09→20:33)
[2021-12-05] MEDS: Mavik 2 MG PO SCH ×2 (06:11→20:32)
[2021-12-05] MEDS: Sodium Chloride 0.9% 1000 ML 1,000 ML IV SCH (06:20)
[2021-12-05] MEDS ORDERED: Lasix 40 MG/4 ML IV ONE (08:00)
--- NOTE | 2021-12-05 08:39 | PCM.DS ---
Discharge Summary Date of Admission: 12/02/21 18:09 Admitting Physician: MARCI KWOK Consults: Consults on Case 12/04/21 09:29 Consult Cardiology ROUTINE Primary Care Provider: MARCI KWOK Allergies Allergies butalbital [From Fiorinal] Allergy (Verified 12/02/21 14:31) caffeine [From Fiorinal] Allergy (Verified 12/02/21 14:31) narcotics Adverse Reaction (Intermediate, Uncoded 12/02/21 14:31) disoriented Hospital Summary - Hospital Course Hospital Course: Pt is an 86 yo female pt of Dr. Kwok' admitted through ER with TIA. The TIA sx resolved prior to arrival. She has PMHx CAD (with stents), HTN (with renal stents) uncontrolled, chronic renal failure, anxiety, hip replacement, anemia, and CHF. She was found in ER to have Hgb 6.8 so was given 2 units PRBC. No signs of active bleeding. Her BP has been very hard to control, but per family this is chronic for her and they worked with DR. Rod for years to come up with the current medication regimen, which is the best they've found. Apparently pt's BP is usually around 200 systolic in the morning, but around midday comes down to 120s-150s systolic (and this has been apparent during this stay). Pt feels bad with bp 120 systolic. Pt has been more SOB than usual and is on 3L O2, which is a change from her baseline of being on room air. She is on lasix chronically at home; it was held here and 1 dose was given yesterday of 20mg IV. This morning she is more SOB; will be given 40mg IV lasix. If no better, CXR will be repeated. On last CXR, the fluid in her lungs was thought to be cardiac decompensation, but pneumonia could not be excluded, so pt was started on IV rocephin and zitrhomax. This will be continued at home, for a total of 7d on antibiotics. Her hgb has stayed stable at 9.5-10 since her transfusion. It is thought to be anemia associated with renal failure. Her kidney function was 23.4 (eGFR) initially. Today 38.4, which is her baseline. After much discussion with pt and family, they would like her to go home on hospice. Hospice will be called to evaluate the patient today, as I anticipate she will be discharged to home after the lasix, if she is feeling better. - Vitals & Intake/Output Vital Signs: Vital Signs Temperature 98.0 F 12/05/21 07:18 Pulse Rate 92 H 12/05/21 07:18 Respiratory Rate 18 12/05/21 07:18 Blood Pressure 174/82 12/05/21 07:18 O2 Sat by Pulse Oximetry 95 12/05/21 07:18 Intake & Output: Intake & Output 12/02/21 12/03/21 12/04/21 12/05/21 11:59 11:59 11:59 11:59 Intake Total 440 2115 1583 Output Total 1900 500 Balance -1460 1615 1583 Weight 68 kg 68.2 kg 69.9 kg - Lab Result Diagrams: 12/05/21 04:34 12/05/21 04:34 Lab Results-Last 24 Hrs: Lab Results-Last 24 Hours 12/04/21 12/05/21 12/05/21 Range/Units 04:35 04:34 04:34 WBC 9.5 (4.0-10.5) x10^3/uL RBC 3.43 L (4.1-5.4) x10^6/uL Hgb 10.0 L (12.0-16.0) g/dL Hct 31.9 L (35-47) % MCV 93.0 (78-100) fL MCH 29.2 (26-32) pg MCHC 31.3 L (32-36) g/dL RDW 15.7 H (11.5-14.0) % Plt Count 388 (150-450) x10^3/uL MPV 9.6 (7.5-11.0) fL Sodium 141 (137-145) mmol/L Potassium 3.9 (3.5-5.1) mmol/L Chloride 106 (98-107) mmol/L Carbon Dioxide 28 (22-30) mmol/L Anion Gap 11.2 (5-15) MEQ/L BUN 27 H (7-17) mg/dL Creatinine 1.38 H (0.52-1.04) mg/dL Estimated GFR 38.4 ML/MIN Glucose 99 (74-106) mg/dL Calcium 8.1 L (8.4-10.2) mg/dL NT-Pro-B Natriuret Pep 65803 H (0-1800) pg/mL Micro Results-Entire Visit: Microbiology 12/02/21 16:27 Urine Culture - Final Clean Catch Midstream MIXED CLAY; 3 OR MORE TYPES. NO PREDOMINANT ORGANISM. NO FURTHER WORKUP. PLEASE RESUBMIT IF CLINICALLY INDICATED. - Radiology Exams Ordered Rad Exams-Entire Visit: Radiology Procedures Category Date Time Status CHEST 1 VIEW (PORTABLE) Routine Exams 12/03/21 09:00 Completed PULMONARY PERF PARTICULATE [NUCMED] Urgent Exams 12/05/21 13:32 Ordered VENOUS BILATERAL EXTREMITY [US] Stat Exams 12/03/21 09:00 Completed - Procedures and Test Procedures and Tests throughout Hospitalization: Therapy Orders & Screens 12/02/21 23:50 Oxygen Nasal Cannula 2 lpm Comment: Diagnosis: Symptomatic anemia 12/03/21 10:04 RT Miscellaneous Order ROUTINE Comment: Physician Instructions: Reason For Exam: WEAN OXYGEN TOLERATED Diagnosis: Symptomatic anemia Discharge Exam General Appearance: mild distress, alert Neurologic Exam: oriented x 3, cooperative Eye Exam: eyes nml inspection Ears, Nose, Throat Exam: moist mucous membranes Neck Exam: normal inspection Respiratory Exam: diminished breath sounds (good air exchange), crackles/rales (bibasilar), wheezing (faint, scattered), other (tachypneic), No rhonchi Cardiovascular Exam: regular rate/rhythm, normal heart sounds, No murmur Gastrointestinal/Abdomen Exam: soft, normal bowel sounds, No tenderness, No distention, No mass, No guarding, No rebound Back Exam: normal inspection, No rash Extremity Exam: normal inspection, swelling (trace pretibial edema) Skin Exam: normal color, warm, dry, No rash Final Diagnosis/Problem List - Final Discharge Diagnosis/Problem (1) CAD (coronary artery disease) Current Visit: Yes Status: Acute Assessment & Plan: Her overall prognosis is poor, with stents (both coronary and renal), uncont rolled HTN on multiple agents, recurrent TIAs, CHF, and renal insufficiency. Pt to discharge home on hospice today, after diuresing. Will send home on home dose of lasix. ALso home abx for pneumonia, and O2. Home on buspar for anxiety. Code(s): I25.10 - ATHSCL HEART DISEASE OF [place] CORONARY ARTERY W/O ANG PCTRS (2) TIA (transient ischemic attack) Current Visit: No Status: Resolved Code(s): G45.9 - TRANSIENT CEREBRAL ISCHEMIC ATTACK, UNSPECIFIED (3) Hypertensive urgency Current Visit: Yes Status: Acute Code(s): I16.0 - HYPERTENSIVE URGENCY (4) Hypertensive emergency Current Visit: Yes Status: Resolved Code(s): I16.1 - HYPERTENSIVE EMERGENCY (5) Shortness of breath Current Visit: Yes Status: Acute Code(s): R06.02 - SHORTNESS OF BREATH (6) Anxiety Current Visit: Yes Status: Chronic Code(s): F41.9 - ANXIETY DISORDER, UNSPECIFIED (7) Acute on chronic renal insufficiency Current Visit: Yes Status: Acute Code(s): N28.9 - DISORDER OF KIDNEY AND URETER, UNSPECIFIED; N18.9 - CHRONIC KIDNEY DISEASE, UNSPECIFIED (8) Right leg pain Current Visit: Yes Status: Resolved Code(s): M79.604 - PAIN IN RIGHT LEG (9) Edema of both legs Current Visit: Yes Status: Chronic Code(s): R60.0 - LOCALIZED EDEMA (10) History of hip replacement Current Visit: Yes Status: Acute Code(s): Z96.649 - PRESENCE OF UNSPECIFIED ARTIFICIAL HIP JOINT (11) Hypertension Current Visit: Yes Status: Chronic Code(s): I10 - ESSENTIAL (PRIMARY) HYPERTENSION (12) Symptomatic anemia Current Visit: Yes Status: Chronic Code(s): D64.9 - ANEMIA, UNSPECIFIED (13) CHF exacerbation Current Visit: Yes Status: Acute Code(s): I50.9 - HEART FAILURE, UNSPECIFIED (14) Pneumonia Current Visit: No Status: Acute Code(s): J18.9 - PNEUMONIA, UNSPECIFIED ORGANISM - Discharge Disposition: Home, Self-Care Condition: Fair Prescriptions: New Lactobacillus Acidophilus [Acidophilus TABLET] 1 tab PO TID #30 tablet Amox Tr/Potass Clav. 875 mg [Augmentin 875-125 Tablet] 875 mg PO BID #10 tablet Buspirone HCl 5 mg [Buspar 5 mg] 5 mg PO BID #60 tablet Continue HydrALAzine HCL 25 MG TAB [Apresoline 25 MG TABLET] 50 mg PO HS Aspirin 81 mg PO DAILY Furosemide 20 mg [Lasix 20 mg] 20 mg PO DAILY Acetaminophen 500 mg [Tylenol Extra Strength 500 mg] 500 mg PO HS PRN PRN Reason: Pain HydrALAzine HCL 25 MG TAB [Apresoline 25 MG TABLET] 25 mg PO DAILY Sennosides [Senokot] 1 tab PO DAILY PRN PRN Reason: Constipation Clopidogrel Bisulfate [PLAVIX Tablet] 75 mg PO DAILY PANTOPRAZOLE 40 mg Tablet [Protonix 40MG Tablet] 40 mg PO QAM Trandolapril/Verapamil HCl [Trandolapr-Verapam ER 2-240 mg] 2 - 240 mg PO DAILY Follow up with: MARCI KWOK MD [Primary Care Provider] -
[2021-12-05] MEDS: Zithromax 500 MG/ 250 ML NaCl Premix 500 MG/250 ML IVPB IV SCH (09:46)
[2021-12-05] MEDS: Protonix 40MG Tablet PO SCH (09:46)
[2021-12-05] MEDS: ROCEPHIN 1 Gm-D5w 50 ml Bag** 1 G/50 ML IVPB IV SCH (09:46)
[2021-12-05] MEDS: ECOTRIN 81 MG PO SCH (09:47)
[2021-12-05] MEDS: PLAVIX Tablet PO SCH (09:47)
[2021-12-05] MEDS: BUSPAR 5 MG PO SCH ×2 (09:47→20:34)
[2021-12-05] MEDS: Apresoline 25 MG TABLET PO SCH ×2 (11:24→20:31)
[2021-12-05 15:28] LABS: ALBUMIN 3.1 g/dL (3.5-5.0); BILIRUBIN,TOTAL 0.6 mg/dL (0.2-1.3); Direct Bilirubin 0.3 mg/dL (0.0-0.4); Total Protein 6.2 g/dL (6.3-8.2)
[2021-12-05] MEDS: APRESOLINE 20 MG/ML INJ IV PRN (16:07)
[2021-12-05] MEDS: TYLENOL EXTRA STRENGTH 500 MG PO PRN (20:31)
[2021-12-06] MEDS: TYLENOL 325 MG PO PRN (05:35)
[2021-12-06] MEDS: Protonix 40MG Tablet PO SCH (05:39)
[2021-12-06] MEDS: BUSPAR 5 MG PO SCH (05:39)
[2021-12-06] MEDS: ECOTRIN 81 MG PO SCH (06:12)
[2021-12-06] MEDS: Mavik 2 MG PO SCH (06:12)
[2021-12-06] MEDS: ISOPTIN SR PO SCH (06:12)
[2021-12-06] MEDS: APRESOLINE 20 MG/ML INJ IV PRN (08:03)
[2021-12-06] MEDS: PLAVIX Tablet PO SCH (08:03)
[2021-12-06] MEDS: ROCEPHIN 1 Gm-D5w 50 ml Bag** 1 G/50 ML IVPB IV SCH (08:04)
--- NOTE | 2021-12-06 09:12 | PCM.DS ---
Discharge Summary Date of Admission: 12/02/21 18:09 Admitting Physician: MARCI KWOK Consults: Consults on Case 12/04/21 09:29 Consult Cardiology ROUTINE Primary Care Provider: MARCI KWOK Allergies Allergies butalbital [From Fiorinal] Allergy (Verified 12/02/21 14:31) caffeine [From Fiorinal] Allergy (Verified 12/02/21 14:31) narcotics Adverse Reaction (Intermediate, Uncoded 12/02/21 14:31) disoriented Hospital Summary - Hospital Course Hospital Course: patient admitted with TIA symptoms, acute on chronic renal failure and hypertensive urgency. she is improved currently and feeling better. received 2 units rbc's on arrival. patient and family have elected to go home on hospice. - Vitals & Intake/Output Vital Signs: Vital Signs Temperature 98.4 F 12/06/21 07:21 Pulse Rate 76 12/06/21 07:21 Respiratory Rate 18 12/06/21 07:21 Blood Pressure 197/94 12/06/21 08:02 O2 Sat by Pulse Oximetry 94 L 12/06/21 08:10 Intake & Output: Intake & Output 12/03/21 12/04/21 12/05/21 12/06/21 11:59 11:59 11:59 11:59 Intake Total 440 2115 1643 1898 Output Total 1900 414 762 9731 Balance -1460 1615 943 148 Weight 68 kg 68.2 kg 69.9 kg 70.1 kg - Lab Result Diagrams: 12/05/21 04:34 12/05/21 04:34 Lab Results-Last 24 Hrs: Lab Results-Last 24 Hours 12/05/21 Range/Units 10:21 Total Bilirubin 0.60 (0.2-1.3) mg/dL Direct Bilirubin 0.3 (0.0-0.4) mg/dL AST 49 H (14-36) U/L ALT 13 (0-35) U/L Alkaline Phosphatase 75 (38-126) U/L Serum Total Protein 6.2 L (6.3-8.2) g/dL Albumin 3.1 L (3.5-5.0) g/dL Micro Results-Entire Visit: Microbiology 12/02/21 16:27 Urine Culture - Final Clean Catch Midstream MIXED CLAY; 3 OR MORE TYPES. NO PREDOMINANT ORGANISM. NO FURTHER WORKUP. PLEASE RESUBMIT IF CLINICALLY INDICATED. - Procedures and Test Procedures and Tests throughout Hospitalization: Therapy Orders & Screens 12/02/21 23:50 Oxygen Nasal Cannula 2 lpm Comment: Diagnosis: Symptomatic anemia 12/03/21 10:04 RT Miscellaneous Order ROUTINE Comment: Physician Instructions: Reason For Exam: WEAN OXYGEN TOLERATED Diagnosis: Symptomatic anemia Discharge Exam General Appearance: no apparent distress Neurologic Exam: alert, oriented x 3 Respiratory Exam: crackles/rales, rhonchi, No accessory muscle use Cardiovascular Exam: regular rate/rhythm, normal heart sounds Gastrointestinal/Abdomen Exam: soft, No tenderness, No mass Skin Exam: normal color, warm, dry Final Diagnosis/Problem List - Final Discharge Diagnosis/Problem (1) Acute on chronic renal insufficiency Current Visit: Yes Status: Acute Code(s): N28.9 - DISORDER OF KIDNEY AND URETER, UNSPECIFIED; N18.9 - CHRONIC KIDNEY DISEASE, UNSPECIFIED (2) CHF exacerbation Current Visit: Yes Status: Acute Code(s): I50.9 - HEART FAILURE, UNSPECIFIED (3) Hypertensive urgency Current Visit: Yes Status: Acute Code(s): I16.0 - HYPERTENSIVE URGENCY (4) Symptomatic anemia Current Visit: Yes Status: Chronic Code(s): D64.9 - ANEMIA, UNSPECIFIED (5) TIA (transient ischemic attack) Current Visit: No Status: Resolved Assessment & Plan: family requests dc plavix due to easy bleeding, they understand prognosis and wish to focus on comfort Code(s): G45.9 - TRANSIENT CEREBRAL ISCHEMIC ATTACK, UNSPECIFIED - Discharge Disposition: Home, Self-Care Condition: Fair Prescriptions: New Lactobacillus Acidophilus [Acidophilus TABLET] 1 tab PO TID #30 tablet Amox Tr/Potass Clav. 875 mg [Augmentin 875-125 Tablet] 875 mg PO BID #10 tablet Buspirone HCl 5 mg [Buspar 5 mg] 5 mg PO BID #60 tablet Continue HydrALAzine HCL 25 MG TAB [Apresoline 25 MG TABLET] 50 mg PO HS Aspirin 81 mg PO DAILY Furosemide 20 mg [Lasix 20 mg] 20 mg PO DAILY Acetaminophen 500 mg [Tylenol Extra Strength 500 mg] 500 mg PO HS PRN PRN Reason: Pain HydrALAzine HCL 25 MG TAB [Apresoline 25 MG TABLET] 25 mg PO DAILY Sennosides [Senokot] 1 tab PO DAILY PRN PRN Reason: Constipation PANTOPRAZOLE 40 mg Tablet [Protonix 40MG Tablet] 40 mg PO QAM Trandolapril/Verapamil HCl [Trandolapr-Verapam ER 2-240 mg] 2 - 240 mg PO LEIGHTON LY Discontinued Clopidogrel Bisulfate [PLAVIX Tablet] 75 mg PO DAILY Follow up with: MARCI KWOK MD [Primary Care Provider] -
[2021-12-06] MEDS: Zithromax 500 MG/ 250 ML NaCl Premix 500 MG/250 ML IVPB IV SCH (09:45)
[2021-12-06] MEDS ORDERED: Lasix 20 MG/2 ML IV ONE (10:00)
[2021-12-06] MEDS: Apresoline 25 MG TABLET PO SCH (11:31)
[2021-12-06 11:33] VITALS: BP 173/79; PULSE 80; O2SAT 96
== END 2021-12-06 12:20 | disposition home or self-care (01) | DRG 682 ==
LOC: ED 14:00 → MED SURG 18:09
PROVIDERS: ADMIT Family Medicine; ATTEND Family Medicine
DX: I12.9 Hypertensive chronic kidney disease with stage 1 through stage 4 chronic kidney disease, or unspecified chronic kidney disease (principal); J18.9 Pneumonia, unspecified organism; G45.9 Transient cerebral ischemic attack, unspecified; I16.1 Hypertensive emergency; I25.10 Atherosclerotic heart disease of native coronary artery without angina pectoris; I16.0 Hypertensive urgency; R06.02 Shortness of breath; F41.9 Anxiety disorder, unspecified; N18.9 Chronic kidney disease, unspecified; M79.604 Pain in right leg; R60.0 Localized edema; Z96.649 Presence of unspecified artificial hip joint; D64.9 Anemia, unspecified; I50.9 Heart failure, unspecified; Z79.01 Long term (current) use of anticoagulants; Z79.899 Other long term (current) drug therapy; Z20.828 Contact with and (suspected) exposure to other viral communicable diseases; Z85.828 Personal history of other malignant neoplasm of skin
CPT/HCPCS: 0241U; 36000; 36415; 36430; 70450; 71045; 80048; 80053; 80076; 81015; 83880; 85025; 85027; 85379; 86850; 86900; 86901; 86922; 87086; 93005; 93970; 94760; 99285; 99291; P9016; J0360; J0456; J0696; J1940; A9270-GY